=== PATIENT | female | born 1955 | race Caucasian/White ===

== ENCOUNTER → 2016-11-03 | Outpatient (CLI) | payer OTHER | END | disposition home or self-care (01) | LOC: LABWHC1 10:56 | PROVIDERS: ATTEND Internal Medicine Endocrinology, Diabetes & Metabolism | DX: E03.8 Other specified hypothyroidism (principal) | CPT/HCPCS: 36415; 84439; 84443 ==

== ENCOUNTER → 2016-12-03 | Outpatient (CLI) | payer OTHER ==
[2016-12-04 15:26] LABS: Lyme IgG/IgM 0.4 Index; Lyme IgG/IgM Interp NEGATIVE (NEGATIVE)
== END | disposition home or self-care (01) ==
LOC: LABWHC1 08:51
PROVIDERS: ATTEND Psychiatry & Neurology Neurology
DX: A69.20 Lyme disease, unspecified (principal)
CPT/HCPCS: 36415; 86618

== ENCOUNTER → 2016-12-28 | Outpatient (CLI) | payer OTHER | END | disposition home or self-care (01) | LOC: LABWHC1 15:02 | PROVIDERS: ATTEND Internal Medicine Endocrinology, Diabetes & Metabolism | DX: E03.8 Other specified hypothyroidism (principal) | CPT/HCPCS: 36415; 84439; 84443 ==

== ENCOUNTER → 2016-12-29 | Outpatient (CLI) | payer OTHER ==
--- NOTE | 2016-12-29 11:54 | BD ---
EXAMINATION TYPE: MG DEXA axial skeleton. DATE OF EXAM: 12/29/2016 COMPARISON: NONE CLINICAL HISTORY: Z78.0 Osteoporosis Screening Height: 60.5 IN Weight: 156 LBS FRAX RISK QUESTIONS: Alcohol (3 or more units per day): NO Family History (Parent hip fracture): NO Glucocorticoids (More than 3mos): NO (Ex: prednisone, prednisolone, methylprednisolone, dexamethasone, and hydrocortisone). History of Fracture in Adulthood: NO Secondary Osteoporosis: 1. Type 1 Diabetes: NO 2. Hyperthyroidism: NO 3. Menopause before 45: NO AGE 50 4. Malnutrition: NO 5. Chronic liver disease: NO Rheumatoid Arthritis: NO Current Tobacco Use: NO RISK FACTORS HISTORY OF: History of Wrist Fracture: YES JUDI When: RT WRIST AGE 44 LT WRIST AGE 45 Family History of Osteoporosis: YES FATHER, GRANDMOTHER(P) Active: YES Diet low in dairy products/other sources of calcium: YES Postmenopausal woman: AGE 50 MEDICATIONS: Thyroid Medications: DOES NOT TAKE NOW Which medication: SYNTHROID How Long: TOOK SYNTHROID FOR 25 YEARS. DOES NOT TAKE THYROID MEDICATION NOW Osteoporosis Medications: NOT NOW Which medication: Fosamax How Long: TOOK FOSAMAX FOR 15 YEARS. STOPPED TAKING 8 YEARS AGO Additional Medications: CALCIUM, VIT D, SINUS MEDS, ANXIETY MEDS, SLEEP MEDS, BIPOLAR MEDS, AMBIEN, N AUSEA MEDS, TRAMADOL, MIGRAINE MEDS EXAM MEASUREMENTS: Bone mineral densitometry was performed using the [employer] System. Bone mineral density as measured about the Lumbar spine is: ----- L1-L4(G/cm2): 0.984 T Score Values are as follows: ----- L2: -2.1 ----- L3: -1.8 ----- L4: -1.2 ----- L1-L4: -1.6 Bone mineral density BASELINE Bone mineral density about the R hip (g/cm2): 0.784 Bone mineral density about the L hip (g/cm2): 0.779 T Score values are as follows: -----R Neck: -1.8 -----L Neck: -1.9 -----R Total: -1.7 -----L Total: -1.2 Bone mineral density BASELINE IMPRESSION: Osteopenia about the lumbar spine and bilateral femora. NOTE: T-SCORE=SD OF THE YOUNG ADULT MEAN.
== END | disposition home or self-care (01) ==
LOC: RADBDWWP 09:15
PROVIDERS: ATTEND Internal Medicine
DX: M85.88 Other specified disorders of bone density and structure, other site (principal); Z78.0 Asymptomatic menopausal state
CPT/HCPCS: 77080

== ENCOUNTER → 2017-06-23 | Outpatient (CLI) | payer OTHER | END | disposition home or self-care (01) | LOC: LABWHC1 10:19 | PROVIDERS: ATTEND Internal Medicine Endocrinology, Diabetes & Metabolism | DX: E03.8 Other specified hypothyroidism (principal) | CPT/HCPCS: 36415; 84443 ==

== ENCOUNTER → 2017-11-09 | Outpatient (CLI) | payer OTHER ==
--- NOTE | 2017-11-09 15:41 | CONS ---
CONSULTATION REASON FOR EVALUATION: Sleep apnea. 62-year-old female patient diagnosed having obstructive sleep apnea back in 2007. At that time, the patient underwent a polysomnogram and she was found to have an AHI of 44 consistent with severe disease. She also has history of chronic insomnia essentially related to her chronic psychotic disorder, which includes chronic anxiety and bipolar. The patient is maintained currently on a combination of Ativan 10 mg 3 times a day and Seroquel 100 mg at bedtime. Apparently her CPAP machine that was set at a pressure of 8 broke approximately a year ago and apparently the patient's symptoms of sleep apnea got worse and the patient is quite symptomatic at this point, where she is waking up multiple times in the middle of the night choking and gasping for air. She continues to have nocturia and she has loud snoring. She is able to fall asleep with help of her medication which includes Ativan and Seroquel. She has excessively fatigue and sleepy during the day and she wants her CPAP machine back. She is going to bed around 10:00 p.m., wakes up at 3, 4, 5 and 6:00 a.m. and ultimately she gets out of bed around 7:00 am. Over the past 10 years, she has lost approximately 9 pounds. She is currently down to 164. No hallucinations. No dreaming. No sleep paralysis. No cataplexy. PAST MEDICAL HISTORY: 1. Obstructive sleep apnea. Details discussed above. The patient was using a CPAP at a pressure of 8 cm of water through a nose pillow. AHI is 44 at baseline. 2. Hypothyroidism. 3. Chronic anxiety. 4. Bipolar disorder. 5. Migraines. 6. Insomnia. PAST SURGICAL HISTORY: Includes carpal tunnel release bilaterally, left knee tendon surgery, bilateral bunion surgery in the feet, cholecystectomy and breast surgery bilaterally. DRUG ALLERGIES: Not known. OUTPATIENT MEDICATION: Includes Seroquel 100 mg at bedtime. Ativan 10 mg 3 times a day. Ambien 10 mg at bedtime. Trileptal 100 mg twice a day. Synthroid 75 mg p.o. daily and Xyzal for allergies. SOCIAL HISTORY: The patient is a nonsmoker. No history of alcohol. No history of IV drugs. FAMILY HISTORY: Negative for sleep apnea. Positive for bipolar disorder. Also cardiovascular disease also runs in the family including hypertension, coronary artery disease and family history of CVA. REVIEW OF SYSTEMS: 12-point review of system was done. Of significance is the increased fatigue and sleepiness the patient experiencing, she has chronic insomnia, details discussed above. She has also chronic anxiety and bipolar disorder. She has nocturia and she has followed up with Urology, tried on various treatments. No palpitation. No heartburn. No grinding of the teeth. No claustrophobia and she was able to manage well with her CPAP machine in the past. 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 She is always tuned into noise for him. No history of any motor vehicle accident because of feeling drowsy or sleepy. PHYSICAL EXAMINATION: BP is 149/84, pulse 78, respirations 16, temperature 16, temperature 97.9 saturation 98% on room air. [place] score is at 0. BMI 30.9. Neck size 15 and quarter of an inch. Weight is 164. Height is 5 feet 1 inch. General appearance: Calm and comfortable. Head is atraumatic, normocephalic. No JVD. No goiter. Neck is negative for JVD. No goiter or neck masses. There is an overbite. LUNGS: Clear to auscultation. HEART: Sounds regular rate and rhythm. Normal S1, S2. No S3, S4. No murmurs. ABDOMEN: Soft, nontender. No organomegaly. EXTREMITIES: No edema. No cyanosis or clubbing. NEUROLOGIC: The patient is alert and oriented x3. There is no focal neurological deficits. Psychiatrically the patient has history of chronic anxiety and bipolar disorder. IMPRESSION: 1. Symptomatic obstructive sleep apnea. Based on the sleep study that was done in 2007. The patient has an AHI of 44 and she was being treated with a CPAP pressure of 8 cm of water. She is currently undergoing no treatment as her previous machine broke. 2. Chronic insomnia, secondary insomnia related to chronic anxiety maintained on a combination of Ativan and Seroquel and Ambien at bedtime. 3. Hypothyroidism. 4. Bipolar disorder. 5. Chronic anxiety. 6. Migraines. PLAN: The patient has established diagnosis and she is currently asymptomatic from obstructive sleep apnea. We will offer CPAP therapy during which the CPAP pressure will be updated and the patient will be given the appropriate mask interface and she will see me back in follow up to discuss the results of the titration and assess her clinical response and compliance to CPAP treatment. Continue to check her Ativan and Ambien as prescribed earlier to this patient for sleep induction and maintenance regarding her chronic anxiety and secondary insomnia. We will continue to follow. MMVINNYL / ROLANDN: [id number] /
== END | disposition home or self-care (01) ==
LOC: SLEEP 13:04
PROVIDERS: ATTEND Internal Medicine Critical Care Medicine
DX: G47.33 Obstructive sleep apnea (adult) (pediatric) (principal); F51.04 Psychophysiologic insomnia; R35.1 Nocturia; F41.9 Anxiety disorder, unspecified; F31.9 Bipolar disorder, unspecified; F29 Unspecified psychosis not due to a substance or known physiological condition; E03.9 Hypothyroidism, unspecified; G43.909 Migraine, unspecified, not intractable, without status migrainosus; Z90.49 Acquired absence of other specified parts of digestive tract; Z99.89 Dependence on other enabling machines and devices; Z79.899 Other long term (current) drug therapy; Z98.890 Other specified postprocedural states
CPT/HCPCS: 99211

== ENCOUNTER → 2017-12-14 | Outpatient (CLI) | payer OTHER ==
[2017-12-14 08:56] LABS: Basophils % (A) 1 %; Eosinophils # (A) 0.2 k/uL (0-0.7); Eosinophils % (A) 3 %; HCT 43.6 % (34.0-46.0); HGB 13.7 gm/dL (11.4-16.0); Lymphocytes # (A) 1.7 k/uL (1.0-4.8); Lymphocytes % (A) 38 %; MCH 29.3 pg (25.0-35.0); MCHC 31.4 g/dL (31.0-37.0); MCV 93.3 fL (80.0-100.0); Mean Platelet Volume 6.9; Monocytes # (A) 0.3 k/uL (0-1.0); Monocytes % (A) 7 %; Neutrophils # (A) 2.3 k/uL (1.3-7.7); Neutrophils % (A) 50 %; Platelet Count 366 k/uL (150-450); RBC 4.67 m/uL (3.80-5.40); RDW 14.6 % (11.5-15.5); WBC 4.6 k/uL (3.8-10.6)
[2017-12-14 08:59] LABS: ALT 36 U/L (9-52); AST 24 U/L (14-36); Albumin 3.6 g/dL (3.5-5.0); Alkaline Phosphatase 57 U/L (38-126); Anion Gap 5 mmol/L; Blood Urea Nitrogen 25 mg/dL (7-17); Calcium 9.3 mg/dL (8.4-10.2); Carbon Dioxide 27 mmol/L (22-30); Chloride 107 mmol/L (98-107); Cholesterol 246 mg/dL (<200); Glucose 93 mg/dL (74-99); HDL Cholesterol 78 mg/dL (40-60); LDL Cholesterol,Calculated 154 mg/dL (0-99); Potassium 4.6 mmol/L (3.5-5.1); Sodium 139 mmol/L (137-145); Total Bilirubin 0.4 mg/dL (0.2-1.3); Total Protein 6.2 g/dL (6.3-8.2); Triglycerides 72 mg/dL (<150)
== END | disposition home or self-care (01) ==
LOC: LABWHC1 07:51
PROVIDERS: ATTEND Nurse Practitioner Women's Health
DX: Z00.00 Encounter for general adult medical examination without abnormal findings (principal); E78.00 Pure hypercholesterolemia, unspecified; Z79.899 Other long term (current) drug therapy
CPT/HCPCS: 36415; 80053; 80061; 85025

== ENCOUNTER → 2017-12-24 | Outpatient (CLI) | payer OTHER | END | disposition home or self-care (01) | LOC: LABWHC1 14:24 | PROVIDERS: ATTEND Internal Medicine Endocrinology, Diabetes & Metabolism | DX: E03.8 Other specified hypothyroidism (principal) | CPT/HCPCS: 36415; 84443 ==

== ENCOUNTER 2018-01-15 11:07 | Observation (INO) | payer OTHER ==
[2018-01-15] MEDS ORDERED: SODIUM CHLORIDE 0.9% 1,000 ML IV ONE (11:20)
--- NOTE | 2018-01-15 11:20 | ED ---
General Adult HPI - General Stated complaint: Chest Pain Time Seen by Provider: 01/15/18 11:07 Source: RN notes reviewed - History of Present Illness Initial comments: This is a 62-year-old female has a past medical history significant for hypertension. Patient states she was donating plasma today and she felt lightheaded and then passed out for about 30 seconds. Patient states she was incontinent of stool and urine. Patient states when she woke up she was having chest pain which was radiating into her neck. Patient states that lasted until the ambulance arrived. Patient was placed on oxygen and aspirin and her pain subsided. Patient states currently she is asymptomatic. Patient denies any palpitations. Patient denies shortness of breath or difficulty breathing. Patient denies any headache patient denies numbness weakness. Patient denies any current chest pain. Patient denies any current lightheadedness. Patient denies abdominal pain. Patient states she did have 3 episodes of diarrhea last night but none so far today. Patient denies any recent fever chills or cough. Patient denies any leg swelling or calf tenderness. - Related Data Home Medications Medication Instructions Recorded Confirmed LORazepam [Lorazepam] 1 mg PO TID 05/04/14 02/10/17 Promethazine [Phenergan] 25 mg PO Q6H PRN 05/04/14 02/10/17 traMADol HCL [Ultram ER] 100 mg PO BID PRN 11/27/14 02/10/17 Levocetirizine Dihydrochloride 5 mg PO QAM 02/07/15 02/10/17 [Xyzal] Multivitamins, Thera [Multivitamin 1 tab PO DAILY 02/15/15 02/10/17 (formulary)] Clindamycin Phos/Benzoyl Perox 1 applic TOPICAL BID 10/25/15 02/10/17 [Benzaclin Gel] Erythromycin Topical [Erythromycin 1 applic TOPICAL TID 10/25/15 02/10/17 2% Topical Soln] Hydrocortisone Cream 1 applic TOPICAL DAILY 10/25/15 02/10/17 [Hydrocortisone 2.5% Cream] Levothyroxine Sodium [Synthroid] 50 mcg PO DAILY 02/05/17 02/10/17 Zolpidem [Ambien] 10 mg PO HS 02/05/17 02/10/17 carBAMazepine [TEGretol XR] 100 mg PO Q12H 02/05/17 02/10/17 Allergies Allergy/AdvReac Type Severity Reaction Status Date / Time codeine AdvReac Nausea Verified 02/10/17 08:46 Review of Systems ROS Statement: Those systems with pertinent positive or pertinent negative responses have been documented in the HPI. ROS Other: All systems not noted in ROS Statement are negative. Past Medical History Past Medical History: Neurologic Disorder Additional Past Medical History / Comment(s): hx. migraines, arrythmia, History of Any Multi-Drug Resistant Organisms: None Reported Past Surgical History: Bladder Surgery, Cholecystectomy, Orthopedic Surgery, Tubal Ligation Additional Past Surgical History / Comment(s): carpal tunnel/ several trigger fingers and toe, foot surg. RON FUNDOPLASTY, EGD last 02/18/15 WITH DILATION , spleen removal, COLONOSCOPY, BILAT WRIST SX Past Anesthesia/Blood Transfusion Reactions: No Reported Reaction Smoking Status: Never smoker - Past Family History Brother(s) Family Medical History: Diabetes Mellitus Sister(s) Family Medical History: AICD/Pacemaker, Diabetes Mellitus Father Family Medical History: CVA/TIA, Myocardial Infarction (ND) Mother Family Medical History: Cancer Additional Family Medical History / Comment(s): pulmonary edema General Exam - General Exam Comments Initial Comments: GENERAL: Patient is well-developed and well-nourished. Patient is nontoxic and well- hydrated and is in mild distress. ENT: Neck is soft and supple. No significant lymphadenopathy is noted. Oropharynx is clear. Moist mucous membranes. Neck has full range of motion without eliciting any pain. EYES: The sclera were anicteric and conjunctiva were pink and moist. Extraocular movements were intact and pupils were equal round and reactive to light. Eyelids were unremarkable. PULMONARY: Unlabored respirations. Good breath sounds bilaterally. No audible rales rhonchi or wheezing was noted. CARDIOVASCULAR: There is a regular rate and rhythm without any murmurs gallops or rubs. ABDOMEN: Soft and nontender with normal bowel sounds. No palpable organomegaly was noted. There is no palpable pulsatile mass. SKIN: Skin is clear with no lesions or rashes and otherwise unremarkable. NEUROLOGIC: Patient is alert and oriented x3. Cranial nerves II through XII are grossly intact. Motor and sensory are also intact. Normal speech, volume and content. Symmetrical smile. MUSCULOSKELETAL: Normal extremities with adequate strength and full range of motion. No lower extremity swelling or edema. No calf tenderness. LYMPHATICS: No significant lymphadenopathy is noted PSYCHIATRIC: Normal psychiatric evaluation. Course Vital Signs 01/15/18 11:18 Temperature 97.0 F L Pulse Rate 74 Respiratory 18 Rate Blood Pressure 158/80 O2 Sat by Pulse 97 Oximetry Medical Decision Making - Medical Decision Making EKG shows a normal sinus rhythm at 67 bpm MO interval 192 QRS is 84 QT interval 390 QTC is 412. Patient's EKG shows no ST segment elevation or depression or T wave abnormalities are noted Chest x-ray shows no acute abnormality. - Lab Data Result diagrams: 01/15/18 11:55 01/15/18 11:55 Lab Results 01/15/18 01/15/18 01/15/18 Range/Units 11:55 11:55 11:55 WBC 15.3 H (3.8-10.6) k/uL RBC 5.53 H (3.80-5.40) m/uL Hgb 16.3 H (11.4-16.0) gm/dL Hct 51.2 H (34.0-46.0) % MCV 92.6 (80.0-100.0) fL MCH 29.4 (25.0-35.0) pg MCHC 31.8 (31.0-37.0) g/dL RDW 14.4 (11.5-15.5) % Plt Count 238 (150-450) k/uL Neutrophils % 81 % Lymphocytes % 13 % Monocytes % 4 % Eosinophils % 1 % Basophils % 1 % Neutrophils # 12.4 H (1.3-7.7) k/uL Lymphocytes # 2.0 (1.0-4.8) k/uL Monocytes # 0.6 (0-1.0) k/uL Eosinophils # 0.1 (0-0.7) k/uL Basophils # 0.1 (0-0.2) k/uL PT (9.0-12.0) sec INR (<1.2) APTT (22.0-30.0) sec Sodium 140 (137-145) mmol/L Potassium 4.1 (3.5-5.1) mmol/L Chloride 107 (98-107) mmol/L Carbon Dioxide 25 (22-30) mmol/L Anion Gap 8 mmol/L BUN 17 (7-17) mg/dL Creatinine 0.72 (0.52-1.04) mg/dL Est GFR (CKD-EPI)AfAm >90 (>60 ml/min/1.73 sqM) Est GFR (CKD-EPI)NonAf 90 (>60 ml/min/1.73 sqM) Glucose 96 (74-99) mg/dL Calcium 8.7 (8.4-10.2) mg/dL Magnesium 1.8 (1.6-2.3) mg/dL Total Bilirubin 0.2 (0.2-1.3) mg/dL AST 23 (14-36) U/L ALT 25 (9-52) U/L Alkaline Phosphatase 56 (38-126) U/L Total Creatine Kinase 69 (30-135) U/L CK-MB (CK-2) 1.1 (0.0-2.4) ng/mL CK-MB (CK-2) Rel Index 1.6 Troponin I <0.012 (0.000-0.034) ng/mL Total Protein 5.6 L (6.3-8.2) g/dL Albumin 3.2 L (3.5-5.0) g/dL 01/15/18 Range/Units 11:55 WBC (3.8-10.6) k/uL RBC (3.80-5.40) m/uL Hgb (11.4-16.0) gm/dL Hct (34.0-46.0) % MCV (80.0-100.0) fL MCH (25.0-35.0) pg MCHC (31.0-37.0) g/dL RDW (11.5-15.5) % Plt Count (150-450) k/uL Neutrophils % % Lymphocytes % % Monocytes % % Eosinophils % % Basophils % % Neutrophils # (1.3-7.7) k/uL Lymphocytes # (1.0-4.8) k/uL Monocytes # (0-1.0) k/uL Eosinophils # (0-0.7) k/uL Basophils # (0-0.2) k/uL PT 9.4 (9.0-12.0) sec INR 0.9 (<1.2) APTT 17.6 L (22.0-30.0) sec Sodium (137-145) mmol/L Potassium (3.5-5.1) mmol/L Chloride (98-107) mmol/L Carbon Dioxide (22-30) mmol/L Anion Gap mmol/L BUN (7-17) mg/dL Creatinine (0.52-1.04) mg/dL Est GFR (CKD-EPI)AfAm (>60 ml/min/1.73 sqM) Est GFR (CKD-EPI)NonAf (>60 ml/min/1.73 sqM) Glucose (74-99) mg/dL Calcium (8.4-10.2) mg/dL Magnesium (1.6-2.3) mg/dL Total Bilirubin (0.2-1.3) mg/dL AST (14-36) U/L ALT (9-52) U/L Alkaline Phosphatase (38-126) U/L Total Creatine Kinase (30-135) U/L CK-MB (CK-2) (0.0-2.4) ng/mL CK-MB (CK-2) Rel Index Troponin I (0.000-0.034) ng/mL Total Protein (6.3-8.2) g/dL Albumin (3.5-5.0) g/dL Disposition Clinical Impression: Syncope, Chest pain, Diarrhea Disposition: ADMITTED IP TO THIS [facility] Referrals: Jayden Hall Jr, [Primary Care Provider] - 1-2 days Time of Disposition: 13:17
[2018-01-15 12:09] LABS: Basophils # (A) 0.1 k/uL (0-0.2); Basophils % (A) 1 %; Eosinophils # (A) 0.1 k/uL (0-0.7); Eosinophils % (A) 1 %; HCT 51.2 % (34.0-46.0); HGB 16.3 gm/dL (11.4-16.0); Lymphocytes % (A) 13 %; MCH 29.4 pg (25.0-35.0); MCHC 31.8 g/dL (31.0-37.0); MCV 92.6 fL (80.0-100.0); Mean Platelet Volume 7.6; Monocytes # (A) 0.6 k/uL (0-1.0); Monocytes % (A) 4 %; Neutrophils # (A) 12.4 k/uL (1.3-7.7); Neutrophils % (A) 81 %; Platelet Count 238 k/uL (150-450); RBC 5.53 m/uL (3.80-5.40); RDW 14.4 % (11.5-15.5); WBC 15.3 k/uL (3.8-10.6)
[2018-01-15 12:24] LABS: INR 0.9 (<1.2); Prothrombin Time 9.4 sec (9.0-12.0)
[2018-01-15 12:29] LABS: ALT 25 U/L (9-52); AST 23 U/L (14-36); Albumin 3.2 g/dL (3.5-5.0); Alkaline Phosphatase 56 U/L (38-126); Anion Gap 8 mmol/L; Blood Urea Nitrogen 17 mg/dL (7-17); Calcium 8.7 mg/dL (8.4-10.2); Carbon Dioxide 25 mmol/L (22-30); Chloride 107 mmol/L (98-107); Glucose 96 mg/dL (74-99); Magnesium 1.8 mg/dL (1.6-2.3); Potassium 4.1 mmol/L (3.5-5.1); Sodium 140 mmol/L (137-145); Total Bilirubin 0.2 mg/dL (0.2-1.3); Total Protein 5.6 g/dL (6.3-8.2)
[2018-01-15 12:39] LABS: Creatine Kinase 69 U/L (30-135); Partial Thromboplastin Time 17.6 sec (22.0-30.0)
--- NOTE | 2018-01-15 12:41 | XR ---
EXAMINATION TYPE: XR chest 2V DATE OF EXAM: 01/15/2018 HISTORY: Chest Pain. REFERENCE: Previous study dated 10/25/1959. FINDINGS: The lungs are clear. Pleural spaces are clear. Heart size upper limits of normal. IMPRESSION: BORDERLINE CARDIOMEGALY.
[2018-01-15 12:53] LABS: Creatine Kinase MB 1.1 ng/mL (0.0-2.4); Troponin I <0.012 ng/mL (0.000-0.034)
[2018-01-15] MEDS ORDERED: NITROGLYCERIN SL TABS 0.4 MG TAB SUBLINGUAL PRN (13:18)
[2018-01-15] MEDS ORDERED: NITROGLYCERIN OINT 1 INCH/GM PACKET TOPICAL STA (13:20)
[2018-01-15] MEDS ORDERED: ONDANSETRON 4 MG/2 ML VIAL ONE (14:55)
[2018-01-15] MEDS ORDERED: SUMAtriptan SUCCINATE 50 MG TAB PO PRN (18:15)
[2018-01-15] MEDS: NITROGLYCERIN OINT 1 INCH/GM PACKET TOPICAL SCH (18:26)
[2018-01-15 18:34] LABS: Creatine Kinase 36 U/L (30-135)
[2018-01-15 18:45] LABS: Creatine Kinase MB 0.7 ng/mL (0.0-2.4); Troponin I <0.012 ng/mL (0.000-0.034)
[2018-01-15] MEDS: QUEtiapine 100 MG TAB PO SCH (20:53)
[2018-01-15] MEDS: LORazepam 1 MG TAB PO SCH (20:54)
--- NOTE | 2018-01-15 22:50 | CONS ---
CONSULTATION CHIEF COMPLAINT: Chest pain. Pebbles is a 62-year-old lady with history of prior cardiac catheterization prior cardiac workup in the form of a stress test and echocardiogram, who presented to hospital complaining of chest discomfort. She describes it as a sharp pericardial pain lasting for about 30 seconds. It all started after she donated plasma today and then she had a brief syncopal event. She states that she was incontinent, woke up and subsequently had chest discomfort that radiated to her neck. At the time of my evaluation, she appears comfortable at rest and is free of symptoms. EKG does not reveal ischemic changes. First set of troponin is negative. PAST MEDICAL HISTORY: Negative for hypertension, diabetes, dyslipidemia. Significant for hypothyroidism. CURRENT MEDICATIONS: Include Seroquel, Imitrex, Trileptal, Vitamin D, Ambien, Multivitamin, Synthroid, Lorazepam, And Hydrocortisone. ALLERGIES: The patient is ALLERGIC TO CODEINE AND TRAZODONE. FAMILY HISTORY: Negative for premature coronary artery disease. SOCIAL HISTORY: Negative for smoking, EtOH abuse, or drug abuse. REVIEW OF SYSTEMS: HEENT is unremarkable. CARDIAC: As described above. RESPIRATORY: Negative. GI: Negative. : Negative. ALLERGY: Negative. MUSCULOSKELETAL: significant for arthritis. PSYCHOSOCIAL: Negative. ENDOCRINE: Negative. HEMATOLOGIC: Negative. CONSTITUTIONAL: Negative. ONCOLOGICAL: Negative. The rest of the system review is not relevant. EXAM: Comfortable at rest. Vital signs are stable. There is no jugular venous distention. Carotid upstroke is normal. There is no bruit. Chest exam reveals good air entry bilaterally. Heart exam reveals first and second heart sounds. No gallop. No murmur. No rub. Abdomen is soft, nontender. Exam of extremities did not reveal any edema. Peripheral pulses are felt. EKG does not reveal ischemic changes. First set of troponin is negative. ASSESSMENT: Chest pain, rule out myocardial infarction. PLAN: Will obtain serial CPKs and EKGs. Obtain an echocardiogram and decide on further course of action. MMODL / IJN: [id number] /
[2018-01-15] MEDS: ZOLPIDEM 10 MG TAB PO SCH (23:14)
[2018-01-16 00:48] LABS: Creatine Kinase 28 U/L (30-135)
[2018-01-16 01:02] LABS: Creatine Kinase MB 0.6 ng/mL (0.0-2.4); Troponin I <0.012 ng/mL (0.000-0.034)
[2018-01-16] MEDS: NITROGLYCERIN OINT 1 INCH/GM PACKET TOPICAL SCH ×4 (04:10→17:44)
[2018-01-16 05:47] LABS: Cholesterol 221 mg/dL (<200); HDL Cholesterol 61 mg/dL (40-60); LDL Cholesterol,Calculated 146 mg/dL (0-99); Triglycerides 69 mg/dL (<150)
[2018-01-16] MEDS: LEVOTHYROXINE 50 MCG TAB PO SCH ×2 (06:39→09:33)
[2018-01-16] MEDS ORDERED: NON-FORMULARY DRUG (Biotin [Biotin] 5 MG) PO SCH (09:00)
[2018-01-16] MEDS ORDERED: NON-FORMULARY DRUG (Omega-3 Fatty Acids/Fish Oil [Fish Oil 1,000 Mg Softgel] 1 CAP) PO SCH (09:00)
--- NOTE | 2018-01-16 09:16 | PN ---
PROGRESS NOTE Pebbles is a 62-year-old lady who is admitted to hospital with chest pain and syncope. This morning she is doing well and is free of symptoms. EKG does not reveal ischemic changes. Cardiac enzymes have been negative and her white cell count is elevated. On exam she is comfortable at rest. Vital signs are stable. There is no jugular venous distention. Chest exam reveals good air entry bilaterally. Heart exam reveals first and second heart sounds. No gallop. Abdomen is soft. Exam of extremities did not reveal any edema. Peripheral pulses are felt. ASSESSMENT: Chest pain, rule out coronary artery disease. PLAN: The patient will have an echo and stress test tomorrow and if this is normal, she will be discharged home. If not, she will undergo further workup. MMODL / IJN: [id number] /
[2018-01-16] MEDS: LORazepam 1 MG TAB PO SCH ×3 (09:34→20:31)
[2018-01-16] MEDS: FERROUS SULFATE 325 MG TAB PO SCH (09:34)
[2018-01-16] MEDS: LORATADINE 10 MG TAB PO SCH (09:34)
[2018-01-16] MEDS: CHOLECALCIFEROL 1,000 UNIT TAB PO SCH (09:35)
[2018-01-16] MEDS: ASPIRIN 325 MG TAB PO SCH (09:35)
[2018-01-16] MEDS: OXcarbazepine 300 MG TAB PO SCH (09:35)
--- NOTE | 2018-01-16 11:34 | P.HPIM ---
History of Present Illness Chief Complaint: Chest pain Pebbles is a 62-year-old white female patient well known to the practice. She has a history of hypertension. She reports she has been donating plasma approximately twice per week. She also indicates for the past several months she's had explosive watery diarrhea several times a day intermittently. While at dialysis yesterday, she became dizzy and faint and actually lost consciousness. She was incontinent of stool and an urine. She was placed on oxygen given aspirin and EMS was called. At that time she had chest pain. She denied any shortness of breath palpitations or other issues.Patient denies any current chest pain. Patient denies any current lightheadedness. Patient denies abdominal pain. Patient states she did have 3 episodes of diarrhea last night but none so far today. Patient denies any recent fever chills or cough. Patient denies any leg swelling or calf tenderness. Review of Systems All systems: negative Past Medical History Past Medical History: Neurologic Disorder Additional Past Medical History / Comment(s): hx. migraines, arrythmia, History of Any Multi-Drug Resistant Organisms: None Reported Past Surgical History: Bladder Surgery, Cholecystectomy, Orthopedic Surgery, Tubal Ligation Additional Past Surgical History / Comment(s): carpal tunnel/ several trigger fingers and toe, foot surg. RON FUNDOPLASTY, EGD last 02/18/15 WITH DILATION , spleen removal, COLONOSCOPY, BILAT WRIST SX Past Anesthesia/Blood Transfusion Reactions: No Reported Reaction Past Psychological History: Anxiety, Bipolar, Depression Additional Psychological History / Comment(s): SEES DR. 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 Past Drug Use History: None Reported - Past Family History Brother(s) Family Medical History: Diabetes Mellitus Sister(s) Family Medical History: AICD/Pacemaker, Diabetes Mellitus Father Family Medical History: CVA/TIA, Myocardial Infarction ([place]) Mother Family Medical History: Cancer Additional Family Medical History / Comment(s): pulmonary edema Medications and Allergies Home Medications Medication Instructions Recorded Confirmed Type LORazepam [Lorazepam] 1 mg PO TID 05/04/14 01/15/18 History Levocetirizine Dihydrochloride 5 mg PO QAM 02/07/15 01/15/18 History [Xyzal] Multivitamins, Thera [Multivitamin 1 tab PO DAILY 02/15/15 01/15/18 History (formulary)] Hydrocortisone Cream 1 applic TOPICAL DAILY 10/25/15 01/15/18 History [Hydrocortisone 2.5% Cream] Levothyroxine Sodium [Synthroid] 50 mcg PO DAILY 02/05/17 01/15/18 History Zolpidem [Ambien] 10 mg PO HS 02/05/17 01/15/18 History Biotin 5 mg PO DAILY 01/15/18 01/15/18 History Cholecalciferol [Vitamin D3] 1,000 unit PO DAILY 01/15/18 01/15/18 History Ferrous Sulfate [Iron] 325 mg PO DAILY 01/15/18 01/15/18 History OXcarbazepine [Trileptal] 300 mg PO DAILY 01/15/18 01/15/18 History [place]-3 Fatty Acids/Fish Oil [Fish 1 cap PO DAILY 01/15/18 01/15/18 History Oil 1,000 mg Softgel] QUEtiapine [SEROquel] 300 mg PO HS 01/15/18 01/15/18 History SUMAtriptan SUCCINATE [Imitrex] 50 mg PO ONCE PRN 01/15/18 01/15/18 History Allergies Allergy/AdvReac Type Severity Reaction Status Date / Time codeine AdvReac Nausea Verified 01/15/18 13:29 trazodone AdvReac Unknown Verified 01/15/18 13:29 Physical Exam Vitals: Vital Signs Temp Pulse Pulse Resp BP BP Pulse Ox 01/16/18 08:00 99.2 F 78 18 117/63 94 L 01/16/18 04:00 98.1 F 81 16 92/50 92 L 01/15/18 23:58 16 01/15/18 23:23 98.1 F 82 16 106/59 91 L 01/15/18 20:00 16 01/15/18 19:44 98.2 F 81 16 124/66 93 L 01/15/18 16:07 97 01/15/18 14:36 97.6 F 71 16 134/81 95 01/15/18 14:11 64 16 143/73 100 01/15/18 13:45 62 16 126/75 99 01/15/18 13:15 68 16 134/74 99 Intake and Output 01/15/18 01/16/18 01/16/18 22:59 06:59 14:59 Other: Voiding Method Toilet Toilet Toilet # Voids 2 2 # Bowel Movements 1 GENERAL: Well-appearing, well-nourished and in no acute distress. HEAD: Atraumatic, normocephalic. EYES: Pupils equal round and reactive to light, extraocular movements intact, sclera anicteric, conjunctiva are normal. ENT:nares patent, oropharynx clear without exudates. Moist mucous membranes. NECK: Normal range of motion, supple without lymphadenopathy or JVD, no thyromegaly LUNGS: Breath sounds clear to auscultation bilaterally and equal. No wheezes rales or rhonchi. HEART: Regular rate and rhythm without murmurs, rubs or gallops.S1S2 Normal ABDOMEN: Soft, nontender, normoactive bowel sounds. No guarding, no rebound. No masses appreciated. EXTREMITIES: Normal range of motion, no pitting or edema. No clubbing or cyanosis. NEUROLOGICAL: Cranial nerves II through XII grossly intact. Normal speech, normal gait. PSYCH: Normal mood, normal affect. SKIN: Warm, Dry, normal turgor, no rashes or lesions noted. Results CBC & Chem 7: 01/15/18 11:55 01/15/18 11:55 Labs: Abnormal Lab Results - Last 24 Hours (Table) 01/15/18 01/15/18 01/15/18 Range/Units 11:55 11:55 11:55 WBC 15.3 H (3.8-10.6) k/uL RBC 5.53 H (3.80-5.40) m/uL Hgb 16.3 H (11.4-16.0) gm/dL Hct 51.2 H (34.0-46.0) % Neutrophils # 12.4 H (1.3-7.7) k/uL APTT 17.6 L (22.0-30.0) sec Total Creatine Kinase (30-135) U/L Total Protein 5.6 L (6.3-8.2) g/dL Albumin 3.2 L (3.5-5.0) g/dL Cholesterol (<200) mg/dL LDL Cholesterol, Calc (0-99) mg/dL HDL Cholesterol (40-60) mg/dL 01/15/18 01/16/18 Range/Units 11:55 00:01 WBC (3.8-10.6) k/uL RBC (3.80-5.40) m/uL Hgb (11.4-16.0) gm/dL Hct (34.0-46.0) % Neutrophils # (1.3-7.7) k/uL APTT (22.0-30.0) sec Total Creatine Kinase 28 L (30-135) U/L Total Protein (6.3-8.2) g/dL Albumin (3.5-5.0) g/dL Cholesterol 221 H (<200) mg/dL LDL Cholesterol, Calc 146 H (0-99) mg/dL HDL Cholesterol 61 H (40-60) mg/dL Chest x-ray: report reviewed Thrombosis Risk Factor Assmnt - DVT/VTE Prophylaxis DVT/VTE Prophylaxis: Low risk, early ambulation encouraged - Choose All That Apply Each Risk Factor Represents 2 Points: Age 61-74 years Thrombosis Risk Factor Assessment Total Risk Factor Score: 2 Thrombosis Risk Factor Assessment Level: Low Risk Assessment and Plan (1) Incontinence of feces Current Visit: Yes Status: Acute Code(s): R15.9 - FULL INCONTINENCE OF FECES SNOMED Code(s): 57998752 (2) Incontinence of urine Current Visit: Yes Status: Acute Code(s): R32 - UNSPECIFIED URINARY INCONTINENCE SNOMED Code(s): 451812801 (3) Chest pain Current Visit: Yes Status: Acute Code(s): R07.9 - CHEST PAIN, UNSPECIFIED SNOMED Code(s): 26491768 (4) Diarrhea Current Visit: Yes Status: Acute Code(s): R19.7 - DIARRHEA, UNSPECIFIED SNOMED Code(s): 96658881 (5) Syncope Current Visit: Yes Status: Acute Code(s): R55 - SYNCOPE AND COLLAPSE SNOMED Code(s): 172609570 (6) Leukocytosis Current Visit: Yes Status: Acute Code(s): D72.829 - ELEVATED WHITE BLOOD CELL COUNT, UNSPECIFIED SNOMED Code(s): 056362984 Plan: Cardiology regarding seen the patient. A stress test and 2-D echo as planned. We will recheck her thyroid labs not done. Recheck other labs in a.m. She'll be reevaluated in the next 24 hours. She will refrain from donating plasma.
[2018-01-16] MEDS: MULTIVITAMINS, THERA 1 EACH TAB PO SCH (11:56)
[2018-01-16 12:57] VITALS: RESP 16
[2018-01-16 13:24] LABS: Appearance,Urine Clear (Clear); Bilirubin,Urine Negative (Negative); Blood,Urine Negative (Negative); Color,Urine Colorless; Glucose,Urine (UA) Negative (Negative); Ketones,Urine Negative (Negative); Leukocyte Esterase,Urine Negative (Negative); Nitrite,Urine Negative (Negative); PH, Urine 5.5 (5.0-8.0); Protein,Urine Negative (Negative); Specific Gravity,Urine 1.005 (1.001-1.035); Urobilinogen,Urine <2.0 mg/dL (<2.0)
[2018-01-16] MEDS: QUEtiapine 100 MG TAB PO SCH (20:31)
[2018-01-16] MEDS: ZOLPIDEM 10 MG TAB PO SCH (20:32)
[2018-01-17] MEDS: NITROGLYCERIN OINT 1 INCH/GM PACKET TOPICAL SCH ×4 (01:36→18:10)
[2018-01-17] MEDS: LEVOTHYROXINE 50 MCG TAB PO SCH (06:40)
[2018-01-17 08:26] LABS: Basophils % (A) 1 %; Eosinophils # (A) 0.2 k/uL (0-0.7); Eosinophils % (A) 3 %; HCT 44.6 % (34.0-46.0); HGB 14.2 gm/dL (11.4-16.0); Lymphocytes # (A) 1.9 k/uL (1.0-4.8); Lymphocytes % (A) 36 %; MCH 29.5 pg (25.0-35.0); MCHC 31.8 g/dL (31.0-37.0); MCV 92.9 fL (80.0-100.0); Mean Platelet Volume 7.1; Monocytes # (A) 0.3 k/uL (0-1.0); Monocytes % (A) 7 %; Neutrophils # (A) 2.6 k/uL (1.3-7.7); Neutrophils % (A) 50 %; Platelet Count 296 k/uL (150-450); RDW 14.4 % (11.5-15.5); WBC 5.2 k/uL (3.8-10.6)
[2018-01-17 08:40] LABS: Anion Gap 4 mmol/L; Blood Urea Nitrogen 11 mg/dL (7-17); Calcium 8.9 mg/dL (8.4-10.2); Carbon Dioxide 28 mmol/L (22-30); Chloride 109 mmol/L (98-107); Glucose 92 mg/dL (74-99); Magnesium 2.2 mg/dL (1.6-2.3); Potassium 4.7 mmol/L (3.5-5.1); Sodium 141 mmol/L (137-145)
--- NOTE | 2018-01-17 11:29 | ECHOF ---
Referral Reason:chest pain MEASUREMENTS -------- HEIGHT: 154.9 cm WEIGHT: 78.0 kg BP: 100/59 IVSd: 1.1 cm (0.6 - 1.1) LVIDd: 3.3 cm (3.9 - 5.3) LVPWd: 1.2 cm (0.6 - 1.1) IVSs: 1.6 cm LVIDs: 1.6 cm LVPWs: 1.7 cm Ao Diam: 2.4 cm (2.0 - 3.7) AV Cusp: 1.7 cm (1.5 - 2.6) LA Diam: 3.1 cm (2.7 - 3.8) MV EXCURSION: 16.703 mm (> 18.000) MV EF SLOPE: 87 mm/s (70 - 150) EPSS: 0.4 cm MV E Jose: 0.56 m/s MV DecT: 203 ms MV A Jose: 0.77 m/s MV E/A Ratio: 0.73 AR PHT: 474 ms RAP: 5.00 mmHg RVSP: 21.93 mmHg FINDINGS -------- Sinus rhythm. This was a technically good study. The left ventricular size is normal. Left ventricular wall thickness is normal. Overall left vent ricular systolic function is normal with, an EF between 55 - 60 %. The right ventricle is normal in size and function. The left atrium is normal in size. The right atrium is normal in size. Aortic valve is trileaflet and is mildly thickened. There is mild aortic regurgitation. The mitral valve leaflets are mildly thickened. Mild mitral annular calcification present. Mild m itral regurgitation is present. No regurgitation noted The right ventricular systolic pressure, as measured by Doppler, is 21.93mmH g. Pulmonic valve appears structurally normal. The aortic root, ascending aorta and aortic arch are normal. The pericardium is normal. CONCLUSIONS -------- 1. Sinus rhythm. 2. This was a technically good study. 3. The left ventricular size is normal. 4. Left ventricular wall thickness is normal. 5. Overall left ventricular systolic function is normal with, an EF between 55 - 60 %. 6. The right ventricle is normal in size and function. 7. The left atrium is normal in size. 8. The right atrium is normal in size. 9. Aortic valve is trileaflet and is mildly thickened. 10. There is mild aortic regurgitation. 11. The mitral valve leaflets are mildly thickened. 12. Mild mitral annular calcification present. 13. Mild mitral regurgitation is present. 14. No regurgitation noted 15. The right ventricular systolic pressure, as measured by Doppler, is 21.93mmHg. 16. Pulmonic valve appears structurally normal. 17. The aortic root, ascending aorta and aortic arch are normal. 18. The pericardium is normal. TERRITORY MANAGER GENERAL SALES: Cady Duarte RDCS
--- NOTE | 2018-01-17 13:20 | P.PN ---
Subjective This is a pleasant 62-year-old female past medical history significant for hypothyroidism. An acute coronary event has been ruled out with no EKG evidence of ischemia negative cardiac enzymes P a denies any symptoms of chest pain, shortness of breath, dizziness or palpitations. Blood pressure 160/71 heart rate 65 afebrile maintaining oxygen saturation on room air. Laboratory data reviewed, WBC 5.2 down from 15.3 on admission, hemoglobin 14.2, platelets 296, sodium 141, potassium 4.7, creatinine 0.65, cardiac enzymes negative 3, LDL 146 and HDL 61. Objective - Vital Signs Vital signs: Vital Signs Temp 97.9 F 01/17/18 11:34 Pulse 65 01/17/18 12:00 Resp 16 01/17/18 12:00 BP 160/71 01/17/18 11:34 Pulse Ox 96 01/17/18 11:34 Intake & Output 01/16/18 01/17/18 01/17/18 18:59 06:59 18:59 Other: Voiding Method Toilet Toilet Toilet # Voids 2 # Bowel Movements 1 - Exam GENERAL: Well-appearing, well-nourished and in no acute distress. NECK: Supple without JVD or thyromegaly. LUNGS: Breath sounds clear to auscultation bilaterally. Respiration equal and unlabored. No wheezes, rales or rhonchi. HEART: Regular rate and rhythm without murmurs, rubs or gallops. S1 and S2 heard. EXTREMITIES: Normal range of motion, no edema. No clubbing or cyanosis. Peripheral pulses intact. - Labs CBC & Chem 7: 01/17/18 07:54 01/17/18 07:54 Labs: Abnormal Lab Results - Last 24 Hours (Table) 01/17/18 Range/Units 07:54 Chloride 109 H (98-107) mmol/L Assessment and Plan Assessment: ASSESSMENT Chest pain, atypical. Acute coronary event has been ruled out with no EKG evidence of ischemia and negative cardiac enzymes. Hypothyroidism Dyslipidemia PLAN An acute coronary event has been ruled out with no EKG evidence of ischemia and negative cardiac enzymes. Proceed with stress echocardiogram to assess her stress induced cardiac ischemia. If stress test is normal she is stable from a cardiac perspective. Lifestyle modifications discussed for lowering of LDL cholesterol with diet and exercise. Follow-up lipid panel to be obtained in 3-6 months. Follow-up with Dr. Willingham in 2-3 weeks. Nurse Practitioner note has been reviewed, I agree with a documented findings and plan of care. Patient was seen and examined.
[2018-01-17] MEDS: FERROUS SULFATE 325 MG TAB PO SCH (14:03)
[2018-01-17] MEDS: LORATADINE 10 MG TAB PO SCH (14:03)
[2018-01-17] MEDS: ASPIRIN 325 MG TAB PO SCH (14:03)
[2018-01-17] MEDS: CHOLECALCIFEROL 1,000 UNIT TAB PO SCH (14:04)
[2018-01-17] MEDS: MULTIVITAMINS, THERA 1 EACH TAB PO SCH (14:04)
[2018-01-17] MEDS: OXcarbazepine 300 MG TAB PO SCH (14:57)
[2018-01-17 16:52] VITALS: BP 133/64; PULSE 79; TEMP 97.7
[2018-01-17] MEDS: LORazepam 1 MG TAB PO SCH (17:18)
--- NOTE | 2018-01-17 17:18 | P.STRESS ---
- Stress Test Note Stress Test Results/Findings: Exam Performed: dobutamine stress echo Exam Date: 01/17/18 Reason for Exam: CHEST PAIN Height: 5 ft 1 in Weight: 78.018 kg Protocol: DSE Stage: 3 Duration of Exercise: 7:15 Resting Heart Rate: 89 Resting Blood Pressure: 124/63 Maximum Achieved Heart Rate: 133 Maximum Achieved Blood Pressure: 199/87 85% PMHR: 133 100% PMHR: 156 METS: 8.5 Technologist Comment: Stress Test Results/Findings: This is a 62-year-old female with history of ischemic heart disease in the family is admitted to the hospital with chest pain. Stress data: Baseline EKG showed sinus rhythm with normal MT interval, QRS duration. Blood pressure at rest is 124/63 with pulse rate of 89. Patient walked on the [place] protocol for 7 minutes and 15 seconds achieving a max moderate to 133 with blood pressure 199/87. EKGs taken during and after exercise did not reveal any significant changes from the baseline. Echo data: Baseline echo images showed normal wall motion and thickening. Exercise echo images showed augmentation of wall motion and thickening in all segments. Final impression: #1. Negative stress test #2. Negative stress echo.
--- NOTE | 2018-01-18 10:25 | ECHOS ---
Stress Test Results/Findings: Exam Performed: dobutamine stress echo Exam Date: 01/17/18 Reason for Exam: CHEST PAIN Height: 5 ft 1 in Weight: 78.018 kg Protocol: DSE Stage: 3 Duration of Exercise: 7:15 Resting Heart Rate: 89 Resting Blood Pressure: 124/63 Maximum Achieved Heart Rate: 133 Maximum Achieved Blood Pressure: 199/87 85% PMHR: 133 100% PMHR: 156 METS: 8.5 Technologist Comment: Stress Test Results/Findings: This is a 62-year-old female with history of ischemic heart disease in the family is admitted to the hospital with chest pain. Stress data: Baseline EKG showed sinus rhythm with normal [place] interval, QRS duration. Blood pressure at rest is 124/63 with pulse rate of 89. Patient walked on the [place] protocol for 7 minutes and 15 seconds achieving a max moderate to 133 with blood pressure 199/87. EKGs taken during and after exercise did not reveal any significant changes from the baseline. Echo data: Baseline echo images showed normal wall motion and thickening. Exercise echo images showed augmentation of wall motion and thickening in all segments. Final impression: #1. Negative stress test #2. Negative stress echo. JOSELYN
== END 2018-01-17 18:20 | disposition home or self-care (01) ==
LOC: EC 11:07 → 3OBS 13:23
PROVIDERS: ADMIT Family Medicine; ATTEND Family Medicine
DX: R07.89 Other chest pain (principal); R55 Syncope and collapse; R32 Unspecified urinary incontinence; R15.9 Full incontinence of feces; D72.829 Elevated white blood cell count, unspecified; E03.9 Hypothyroidism, unspecified; E78.5 Hyperlipidemia, unspecified; R19.7 Diarrhea, unspecified; F31.9 Bipolar disorder, unspecified; F41.9 Anxiety disorder, unspecified; G43.909 Migraine, unspecified, not intractable, without status migrainosus; I49.9 Cardiac arrhythmia, unspecified; Z79.890 Hormone replacement therapy; Z79.899 Other long term (current) drug therapy; Z88.5 Allergy status to narcotic agent; Z88.8 Allergy status to other drugs, medicaments and biological substances; Z90.49 Acquired absence of other specified parts of digestive tract; F10.21 Alcohol dependence, in remission; Z98.51 Tubal ligation status; Z82.49 Family history of ischemic heart disease and other diseases of the circulatory system; Z83.3 Family history of diabetes mellitus; Z80.9 Family history of malignant neoplasm, unspecified; Z82.3 Family history of stroke; Z83.6 Family history of other diseases of the respiratory system
CPT/HCPCS: 96360; 99285; 36415; 93005; 93306; 93351; 80061; 80053; 80048; 82550 ×2; 82553 ×2; 83735 ×2; 84484 ×2; 85025 ×2; 85610; 85730; 81003; 71046; G0378 ×3

== ENCOUNTER → 2018-01-20 | Outpatient (CLI) | payer OTHER ==
--- NOTE | 2018-01-21 08:00 | MM ---
Reason for exam: screening (asymptomatic). Last mammogram was performed 1 year ago. History: Patient is postmenopausal. Family history of breast cancer in sister at age 57 and breast cancer in grandmother. Benign excisional biopsy of the right breast, October 29, 2000. Took hormonal contraceptives for 4 years beginning at age 9. Physical Findings: A clinical breast exam by your physician is recommended on an annual basis and results should be correlated with mammographic findings. MG 3D Screening Mammo W/Cad Bilateral CC and MLO view(s) were taken. Prior study comparison: January 19, 2017, bilateral MG 3d screening mammo w/cad. December 24, 2015, bilateral MG screening mammo w CAD. There are scattered fibroglandular densities. There are benign appearing vascular calcifications bilaterally. There is no discrete abnormality. ASSESSMENT: Benign, BI-RAD 2 RECOMMENDATION: Routine screening mammogram of both breasts in 1 year.
== END ==
LOC: RADMAMWWP 10:55
PROVIDERS: ATTEND Family Medicine
DX: Z12.31 Encounter for screening mammogram for malignant neoplasm of breast (principal); Z80.3 Family history of malignant neoplasm of breast
CPT/HCPCS: 77063; 77067

== ENCOUNTER → 2018-02-22 | Outpatient (CLI) | payer OTHER ==
[2018-02-22 13:53] LABS: Basophils # (A) 0.1 k/uL (0-0.2); Basophils % (A) 1 %; Eosinophils # (A) 0.3 k/uL (0-0.7); Eosinophils % (A) 4 %; HCT 44.9 % (34.0-46.0); HGB 14.5 gm/dL (11.4-16.0); Lymphocytes # (A) 2.5 k/uL (1.0-4.8); Lymphocytes % (A) 40 %; MCH 29.9 pg (25.0-35.0); MCHC 32.2 g/dL (31.0-37.0); MCV 92.7 fL (80.0-100.0); Mean Platelet Volume 7.7; Monocytes # (A) 0.4 k/uL (0-1.0); Monocytes % (A) 6 %; Neutrophils # (A) 2.8 k/uL (1.3-7.7); Neutrophils % (A) 45 %; Platelet Count 304 k/uL (150-450); RBC 4.84 m/uL (3.80-5.40); RDW 13.8 % (11.5-15.5); WBC 6.1 k/uL (3.8-10.6)
[2018-02-22 14:06] LABS: Prothrombin Time 9.6 sec (9.0-12.0)
[2018-02-22 19:40] LABS: Albumin 4.5 g/dL (3.80-4.90); Albumin/Globulin Ratio 2.14 (1.20-2.10); Anion Gap 7.6 mmol/L (4.00-12.00); Calcium 9.3 mg/dL (8.7-10.3); Carbon Dioxide 25.4 mmol/L (21.6-31.8); Globulin 2.1 g/dL (2.1-3.7); Potassium 4.4 mmol/L (3.5-5.5); Total Bilirubin 0.3 mg/dL (0.3-1.2); Total Protein 6.6 g/dL (6.2-8.2)
== END | disposition home or self-care (01) ==
LOC: LABWHC1 13:10
PROVIDERS: ATTEND Nurse Practitioner Family
DX: Z01.812 Encounter for preprocedural laboratory examination (principal); E78.5 Hyperlipidemia, unspecified; K21.9 Gastro-esophageal reflux disease without esophagitis; G47.33 Obstructive sleep apnea (adult) (pediatric)
CPT/HCPCS: 36415; 80053; 84443; 85025; 85610

== ENCOUNTER → 2018-05-03 | Outpatient (CLI) | payer OTHER ==
--- NOTE | 2018-05-03 15:23 | PN ---
PROGRESS NOTE This is [facility]. This is a very pleasant, 62-year-old female patient with severe symptomatic obstructive sleep apnea with an AHI of 44. The patient on CPAP pressure of 10 cm of water and today she is coming in for a compliancy check. The patient is looking very well. She is very compliant with CPAP. She is wearing it every night and she reports improvement in sleep quality in general while her being on CPAP treatment. No morning headaches. No hypersomnia or sleepiness during the day. She is able to read books and participating day-to-day activities without feeling somnolent or sleepy. Based on the compliance data, the patient has been averaging around 6 hours and 26 minutes of CPAP use every night. Her CPAP use for more than 4 hours is 83% and the patient has utilized her CPAP pretty much every night over the past several months. Her leak is 9 L/minute. Her AHI is down to 5 while on treatment and the patient is utilizing an Air Fit P10 extra small nose mask. No aerophagia. No choking or gasping sensation at nighttime during sleep. No nocturnal heartburn, chest pain, or shortness of breath. REVIEW OF SYSTEMS: A 12-point review of system was done. Positive findings as mentioned above in history of present illness. As mentioned, no chest pain, no shortness of breath. No altered mentation. No hypersomnia or sleepiness. No feeling of drowsy or sleepy during the day. No anxiety, no depression. No altered mentation. No symptoms of insomnia, grinding of the teeth. No restlessness in the lower extremities. No sweating, no palpitation, no heartburn, no claustrophobia, no depression. PHYSICAL EXAMINATION: BP is 142/87, pulse 84, respirations 16, temperature 97.1, saturation is 95% on room air. Weight is 177. GENERAL APPEARANCE: Calm, comfortable. HEAD: Atraumatic, normocephalic. NECK: Supple. There is no JVD. No goiter or neck masses. Mallampati class IV. LUNGS: Clear to auscultation. HEART: Sounds regular rate and rhythm. Normal S1, S2. No S3, S4. No murmurs. ABDOMEN: Soft, nontender. No organomegaly. EXTREMITIES: No edema. No cyanosis or clubbing. NEUROLOGIC: Alert and awake x3. No focal neurological deficits. PSYCHIATRIC: Negative for anxiety or depression. IMPRESSION: 1. Severe obstructive sleep apnea, apnea-hypopnea index of 44, currently on CPAP pressure of 10 with excellent clinical response and compliance. 2. Chronic insomnia, currently inactive and stable and the patient is able to generate good 6 hours of sleep without any major complaints or issues or difficulties. She is on a combination of Ativan and Seroquel and Ambien. 3. Chronic anxiety. 4. Bipolar disorder. 5. Migraines. 6. Hypothyroidism. PLAN: Continue same treatment, keep the same CPAP pressure setting, keep the same mask interface and send a prescription for an Air Fit extra-small nose pillows to [facility]. Treatment of her chronic anxiety and bipolar disorder. Treatment of her chronic insomnia. Will be kept unchanged. No active migraines. The patient is benefitting from treatment. Will see her back in a year's time in follow up, earlier if needed. MMODL / IJN: [id number] /
== END ==
LOC: SLEEP 14:06
PROVIDERS: ATTEND Internal Medicine Critical Care Medicine
DX: G47.33 Obstructive sleep apnea (adult) (pediatric) (principal); F41.9 Anxiety disorder, unspecified; F31.9 Bipolar disorder, unspecified; G43.909 Migraine, unspecified, not intractable, without status migrainosus; E03.9 Hypothyroidism, unspecified; Z99.89 Dependence on other enabling machines and devices

== ENCOUNTER 2018-08-22 20:45 | Observation (INO) | payer OTHER ==
[2018-08-22] MEDS ORDERED: ASPIRIN 325 MG TAB PO STA (21:32)
[2018-08-22 22:24] LABS: Basophils % (A) 1 %; Eosinophils # (A) 0.3 k/uL (0-0.7); Eosinophils % (A) 5 %; HCT 48.4 % (34.0-46.0); HGB 15.1 gm/dL (11.4-16.0); Lymphocytes # (A) 2.6 k/uL (1.0-4.8); Lymphocytes % (A) 45 %; MCH 29.2 pg (25.0-35.0); MCHC 31.3 g/dL (31.0-37.0); MCV 93.3 fL (80.0-100.0); Mean Platelet Volume 8.1; Monocytes # (A) 0.5 k/uL (0-1.0); Monocytes % (A) 8 %; Neutrophils # (A) 2.2 k/uL (1.3-7.7); Neutrophils % (A) 39 %; Platelet Count 292 k/uL (150-450); RBC 5.19 m/uL (3.80-5.40); RDW 13.9 % (11.5-15.5); WBC 5.7 k/uL (3.8-10.6)
[2018-08-22 22:37] LABS: Anion Gap 9 mmol/L; Blood Urea Nitrogen 18 mg/dL (7-17); Calcium 10.6 mg/dL (8.4-10.2); Carbon Dioxide 26 mmol/L (22-30); Chloride 105 mmol/L (98-107); Glucose 94 mg/dL (74-99); Lipase 118 U/L (23-300); Potassium 4.3 mmol/L (3.5-5.1); Sodium 140 mmol/L (137-145)
--- NOTE | 2018-08-22 22:45 | XR ---
EXAM: XR Chest, 2 Views CLINICAL HISTORY: ITS.REASON XR Reason: Pain TECHNIQUE: Frontal and lateral views of the chest. COMPARISON: Chest radiographs 01/15/2018. FINDINGS: Lungs: Unremarkable. No consolidation. Pleural space: Unremarkable. No pneumothorax. Heart: Unremarkable. No cardiomegaly. Mediastinum: Unremarkable. Bones/joints: Degenerative change in the acromioclavicular joints. IMPRESSION: No acute cardiopulmonary abnormality.
[2018-08-22] MEDS ORDERED: ACETAMINOPHEN TAB 325 MG TAB PO STA (23:47)
--- NOTE | 2018-08-22 23:47 | ED ---
Chest Pain HPI - General Chief Complaint: Chest Pain Stated Complaint: High BP Time Seen by Provider: 08/22/18 21:09 Source: patient, family Mode of arrival: wheelchair Limitations: no limitations - History of Present Illness Initial Comments: 62-year-old female presenting with 2 days of intermittent left-sided sharp stabbing nonradiating chest pain is accompanied by diaphoresis and nausea, occur spontaneously while at rest, and resolved spontaneously without intervention. She's also been having shortness of breath while at rest while having the chest pain. She states she's been using a wrist blood pressure cuff and that while she's having these episodes she has had blood pressure readings over 200. States she is currently on metoprolol for hypertension. States her last stress test was 3 years prior and was negative. Denies any history of DVT PE, recent surgery, active cancer, hormone replacement therapy. She denies any hyperlipidemia or tobacco abuse. She admits to multiple stressors in her life and states that she is concerned this could be causing her symptoms. She currently sees a psychiatrist who she states is working with the medication she is currently on. - Related Data Home Medications Medication Instructions Recorded Confirmed LORazepam [Lorazepam] 1 mg PO TID 05/04/14 08/22/18 Levocetirizine Dihydrochloride 5 mg PO QAM 02/07/15 08/22/18 [Xyzal] Multivitamins, Thera [Multivitamin 1 tab PO DAILY 02/15/15 08/22/18 (formulary)] Zolpidem [Ambien] 10 mg PO HS 02/05/17 08/22/18 Biotin 5 mg PO DAILY 01/15/18 08/22/18 Cholecalciferol [Vitamin D3] 1,000 unit PO DAILY 01/15/18 08/22/18 Ferrous Sulfate [Iron] 325 mg PO DAILY 01/15/18 08/22/18 OXcarbazepine [Trileptal] 300 mg PO DAILY 01/15/18 08/22/18 [place]-3 Fatty Acids/Fish Oil [Fish 1 cap PO DAILY 01/15/18 08/22/18 Oil 1,000 mg Softgel] QUEtiapine [SEROquel] 300 mg PO HS 01/15/18 08/22/18 SUMAtriptan SUCCINATE [Imitrex] 50 mg PO ONCE PRN 01/15/18 08/22/18 Aspirin 325 mg PO DAILY 08/22/18 08/22/18 Levothyroxine Sodium [Synthroid] 75 mcg PO DAILY 08/22/18 08/22/18 Metoprolol Tartrate [Lopressor] 12.5 mg PO DAILY PRN 08/22/18 08/22/18 Promethazine [Phenergan] 12.5 mg PO Q8HR PRN 08/22/18 08/22/18 Allergies Allergy/AdvReac Type Severity Reaction Status Date / Time codeine AdvReac Nausea Verified 08/22/18 21:12 trazodone AdvReac Unknown Verified 08/22/18 21:12 Review of Systems ROS Statement: Those systems with pertinent positive or pertinent negative responses have been documented in the HPI. Review of Systems Constitutional: Denies fever, chills. Positive diaphoresis Eyes: Denies change in vision, Denies pain Ears, nose, mouth, throat: Denies headaches, Denies sore throat Cardiovascular: Positive chest pain. Denies palpitations Respiratory: Denies shortness of breath, Denies cough Gastrointestinal: Denies abdominal pain. Denies nausea, vomiting, diarrhea. Genitourinary: Denies hematuria, Denies infections Musculoskeletal: Denies pain, Denies swelling Integumentary: Denies rash Neurological: Denies headache, focal weakness, focal numbness Psychiatric: Denies anxiety, Denies depression Hematologic/Lymphatic: Denies easy bleeding or bruising ROS Other: All systems not noted in ROS Statement are negative. Past Medical History Past Medical History: Neurologic Disorder Additional Past Medical History / Comment(s): hx. migraines, arrythmia, History of Any Multi-Drug Resistant Organisms: None Reported Past Surgical History: Bladder Surgery, Cholecystectomy, Orthopedic Surgery, Tubal Ligation Additional Past Surgical History / Comment(s): carpal tunnel/ several trigger fingers and toe, foot surg. RON FUNDOPLASTY, EGD last 02/18/15 WITH DILATION, spleen removal, COLONOSCOPY, BILAT WRIST SX Past Anesthesia/Blood Transfusion Reactions: No Reported Reaction Past Psychological History: Anxiety, Bipolar, Depression Smoking Status: Never smoker Past Alcohol Use History: None Reported Past Drug Use History: None Reported - Past Family History Brother(s) Family Medical History: Diabetes Mellitus Sister(s) Family Medical History: AICD/Pacemaker, Diabetes Mellitus Father Family Medical History: CVA/TIA, Myocardial Infarction ([place]) Mother Family Medical History: Cancer Additional Family Medical History / Comment(s): pulmonary edema General Exam - General Exam Comments Initial Comments: General: Awake, alert, No acute Distress HENT: Normocephalic. Atraumatic Eyes: PERRL. EOMI. No scleral icterus. No injected conjunctiva Neck: Full ROM Chest/Lungs: Clear to auscultation bilaterally. No wheezing, rhonchi, or rales Cardiac: Regular rate, rhythm. No murmurs or rubs. 2+ radial pulses bilaterally. Abdomen/GI: Soft, nontender, nondistended. No rebound, guarding, or rigidity. Musculoskeletal: Full ROM Skin: Warm, dry, intact Neurologic: A/Ox3, no weakness, no sensory deficit, no abnormal gait, no coordination deficit Psych: Anxious appearing Limitations: no limitations Course Vital Signs 08/22/18 20:50 Temperature 98.1 F Pulse Rate 59 L Respiratory 18 Rate Blood Pressure 194/84 O2 Sat by Pulse 96 Oximetry Chest Pain MDM - MDM [age] female presenting with chest pain. Initial exam the patient is awake, alert, no acute distress. VSS. EKG shows sinus bradycardia with a first-degree AV block at a rate of 51 bpm. Patient's Wells PE score is 1.5. Her d-dimer was negative. Heart score 4. Her last stress test was 3 years prior. Laboratory work appears otherwise unremarkable. Chest xray negative. She is not markedly hypertensive here. Her symptoms resolved and therefore heparin was not initiated. I do not suspect unstable angina at this time. Spoke with Dr. Ching who is agreeable to admission with cardiology on consult. Patient is requesting an exercise stress test. - Wells Criteria Clinical Symptoms of DVT: (0) No No Alternative Diagnosis: (0) No Immobilization of Surgery in Previous 4 Weeks: (0) No Previous DVT/PE: (0) No Hemoptysis: (0) No Malignancy: (0) No Disposition Clinical Impression: Chest pain Disposition: ADMITTED IP TO THIS [facility] Decision to Admit Reason: Admit from EC Decision Date: 08/22/18 Decision Time: 23:53
[2018-08-22] MEDS ORDERED: NALOXONE 0.4 MG/ML 1 ML VIAL IV PRN (23:54)
[2018-08-22] MEDS ORDERED: ACETAMINOPHEN TAB 325 MG TAB PO PRN (23:54)
[2018-08-22] MEDS ORDERED: PROMETHAZINE 25 MG TAB PO PRN (23:58)
[2018-08-23] MEDS ORDERED: PROMETHAZINE 25 MG TAB PO STA (01:30)
[2018-08-23] MEDS: LORazepam 1 MG TAB PO SCH ×4 (02:16→20:44)
[2018-08-23] MEDS: ZOLPIDEM 10 MG TAB PO SCH ×2 (02:16→20:45)
[2018-08-23] MEDS ORDERED: OXcarbazepine 300 MG TAB PO SCH ×2 (09:00→21:00)
[2018-08-23] MEDS ORDERED: LORazepam 1 MG TAB PO SCH (09:00)
[2018-08-23] MEDS ORDERED: METOPROLOL TARTRATE 12.5 MG TAB PO PRN (09:00)
[2018-08-23] MEDS ORDERED: NON-FORMULARY DRUG (Biotin [Biotin] 5 MG) PO SCH (09:00)
[2018-08-23] MEDS ORDERED: ASPIRIN 325 MG TAB PO SCH (09:00)
[2018-08-23] MEDS: CHOLECALCIFEROL 1,000 UNIT TAB PO SCH (09:07)
[2018-08-23] MEDS: ASPIRIN 81 MG PO SCH (09:07)
[2018-08-23] MEDS ORDERED: SUMAtriptan SUCCINATE 50 MG TAB PO PRN (09:54)
--- NOTE | 2018-08-23 09:55 | P.HPIM ---
History of Present Illness H&P Date: 08/23/18 Chief Complaint: Chest pain This is a 62-year-old white female complaining of a 6 day history of chest pain. She reports the symptoms are intermittent and lasting minutes to hours and typically stabbing in quality. It would sometimes radiate to the to her neck and lead to a headache. She has been frequently monitoring her blood pressure very concerned about her labile hypertension. She seen cardiology was recently in metoprolol. She reports concerns her blood pressure being too high to low. She had some shortness of breath with some of the episodes. She denies any nausea vomiting, diarrhea or constipation recently. She is currently on the observation floor. Troponins 2 of the negative. Other laboratory studies are normal. She has an extensive history of anxiety. She is currently being worked up for sleep apnea in the office. Review of Systems All systems: negative Past Medical History Past Medical History: Neurologic Disorder, Seizure Disorder, Thyroid Disorder Additional Past Medical History / Comment(s): hx. migraines, arrythmia, bipolar "psychosis", anxiety/depression, gastric bipass, last seizure 1999. History of Any Multi-Drug Resistant Organisms: None Reported Past Surgical History: Bariatric Surgery, Bladder Surgery, Cholecystectomy, Orthopedic Surgery, Tubal Ligation Additional Past Surgical History / Comment(s): carpal tunnel/ several trigger fingers and toe, foot surg. RON FUNDOPLASTY, EGD last 02/18/15 WITH DILATION, spleen removal, COLONOSCOPY, BILAT WRIST SX, gastric bipass. Past Anesthesia/Blood Transfusion Reactions: No Reported Reaction Past Psychological History: Anxiety, Bipolar, Depression Additional Psychological History / Comment(s): "psychosis" SEES DR. Mosqueda. 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 Past Drug Use History: None Reported - Past Family History Brother(s) Family Medical History: Diabetes Mellitus Sister(s) Family Medical History: AICD/Pacemaker, Diabetes Mellitus Father Family Medical History: CVA/TIA, Myocardial Infarction ([place]) Mother Family Medical History: Cancer Additional Family Medical History / Comment(s): pulmonary edema Medications and Allergies Home Medications Medication Instructions Recorded Confirmed Type LORazepam [Lorazepam] 1 mg PO TID 05/04/14 08/22/18 History Levocetirizine Dihydrochloride 5 mg PO QAM 10/29/15 05/13/19 History [Xyzal] Multivitamins, Thera [Multivitamin 1 tab PO DAILY 02/15/15 08/22/18 History (formulary)] Zolpidem [Ambien] 10 mg PO HS 02/05/17 08/22/18 History Biotin 5 mg PO DAILY 01/15/18 08/22/18 History Cholecalciferol [Vitamin D3] 1,000 unit PO DAILY 01/15/18 08/22/18 History Ferrous Sulfate [Iron] 325 mg PO DAILY 01/15/18 08/22/18 History OXcarbazepine [Trileptal] 300 mg PO DAILY 01/15/18 08/22/18 History [place]-3 Fatty Acids/Fish Oil [Fish 1 cap PO DAILY 01/15/18 08/22/18 History Oil 1,000 mg Softgel] QUEtiapine [SEROquel] 300 mg PO HS 01/15/18 08/22/18 History SUMAtriptan SUCCINATE [Imitrex] 50 mg PO ONCE PRN 01/15/18 08/22/18 History Aspirin 325 mg PO DAILY 08/22/18 08/22/18 History Levothyroxine Sodium [Synthroid] 75 mcg PO DAILY 08/22/18 08/22/18 History Metoprolol Tartrate [Lopressor] 12.5 mg PO DAILY PRN 08/22/18 08/22/18 History Promethazine [Phenergan] 12.5 mg PO Q8HR PRN 08/22/18 08/22/18 History Allergies Allergy/AdvReac Type Severity Reaction Status Date / Time codeine AdvReac Nausea Verified 08/22/18 21:12 trazodone AdvReac Unknown Verified 08/22/18 21:12 Physical Exam Vitals: Vital Signs Temp Pulse Pulse Resp BP BP Pulse Ox 08/23/18 08:00 98.2 F 64 15 137/76 97 08/23/18 04:00 97.6 F 63 18 170/73 98 08/23/18 03:50 18 08/23/18 02:24 18 08/23/18 01:52 97.2 F L 54 L 18 169/84 98 08/23/18 01:21 17 08/23/18 01:17 97.7 F 51 L 17 157/71 97 08/23/18 01:00 52 L 141/56 08/23/18 00:30 50 L 19 140/78 08/23/18 00:00 57 L 161/76 08/22/18 23:30 49 L 158/77 08/22/18 23:00 52 L 152/78 08/22/18 22:30 152/78 08/22/18 22:14 53 L 97 08/22/18 20:50 98.1 F 59 L 18 194/84 96 Intake and Output 08/22/18 08/23/18 08/23/18 22:59 06:59 14:59 Other: # Voids 1 Weight 74.389 kg GENERAL: Well-appearing, well-nourished and in no acute distress. HEAD: Atraumatic, normocephalic. EYES: Pupils equal round and reactive to light, extraocular movements intact, sclera anicteric, conjunctiva are normal. ENT:nares patent, oropharynx clear without exudates. Moist mucous membranes. NECK: Normal range of motion, supple without lymphadenopathy or JVD, no thyromegaly LUNGS: Breath sounds clear to auscultation bilaterally and equal. No wheezes rales or rhonchi. HEART: Regular rate and rhythm without murmurs, rubs or gallops.S1S2 Normal ABDOMEN: Soft, nontender, normoactive bowel sounds. No guarding, no rebound. N o masses appreciated. EXTREMITIES: Normal range of motion, no pitting or edema. No clubbing or cyan osis. NEUROLOGICAL: Cranial nerves II through XII grossly intact. Normal speech, normal gait. PSYCH: Normal mood, normal affect. SKIN: Warm, Dry, normal turgor, no rashes or lesions noted. Results CBC & Chem 7: 08/22/18 22:05 08/22/18 22:05 Labs: Abnormal Lab Results - Last 24 Hours (Table) 08/22/18 08/22/18 Range/Units 22:05 22:05 Hct 48.4 H (34.0-46.0) % BUN 18 H (7-17) mg/dL Calcium 10.6 H (8.4-10.2) mg/dL Chest x-ray: report reviewed Thrombosis Risk Factor Assmnt - DVT/VTE Prophylaxis DVT/VTE Prophylaxis: Low risk, early ambulation encouraged - Choose All That Apply Each Risk Factor Represents 2 Points: Age 61-74 years Other congenital or acquired thrombophilia - If yes, enter type in comment: No Thrombosis Risk Factor Assessment Total Risk Factor Score: 2 Thrombosis Risk Factor Assessment Level: Low Risk Assessment and Plan (1) Essential (primary) hypertension Current Visit: Yes Status: Acute Code(s): I10 - ESSENTIAL (PRIMARY) HYPERTENSION SNOMED Code(s): 03246622 (2) Anxiety Current Visit: Yes Status: Acute Code(s): F41.9 - ANXIETY DISORDER, UNSPECIFIED SNOMED Code(s): 91221458 (3) Migraine Current Visit: Yes Status: Acute Code(s): G43.909 - MIGRAINE, UNSP, NOT INTRACTABLE, WITHOUT STATUS MIGRAINOSUS SNOMED Code(s): 25374619 (4) Hypothyroidism Current Visit: Yes Status: Acute Code(s): E03.9 - HYPOTHYROIDISM, UNSPECIFIED SNOMED Code(s): 71074198 (5) Chest pain Current Visit: Yes Status: Acute Code(s): R07.9 - CHEST PAIN, UNSPECIFIED SNOMED Code(s): 45718897 Plan: She did have a stress test back in January 2018 was normal. We'll consult cardiology wait on the recommendations. She continue on current medications. Every testing is normal and her symptoms are resolved or improved, we'll plan discharge later this afternoon.
--- NOTE | 2018-08-23 10:06 | P.CRDCN ---
History of Present Illness History of present illness: This is a pleasant 62-year-old female past medical history significant for seizure disorder, hypothyroidism, uncontrolled hypertension and former alcohol abuse. She follows in the office with Dr. Willingham. She also sees a negative turner apprentice out of [facility]. She states she has frequent episodes of chest discomfort and no one has been able to figure out why. She presented to [facility] after having elevated blood pressures at home for the previous 3-4 days. She states she feels and discomfort in her chest like an overall pressure sensation that radiates throughout the entire anterior chest wall associated with some mild shortness of breath. At that time she'll check her blood pressure and she is getting elevated readings in the 190s over 100 range. She does have Lopressor at home 12.5 mg she states she's been advised to take when her blood pressure is elevated. Further evaluation and into her office visits with Dr. Willingham he has recommended that she take this medication daily however she states her blood pressure sometimes she feels is too low. Since arriving at the hospital she has had no further symptoms of chest discomfort or shortness of breath. She did undergo a stress echocardiogram in January 2018 that was unremarkable for any ischemic changes. Blood pressure on arrival to the emergency department was 194/84. Through the night her blood pressures have remained elevated in the 150-160 systolic range. This morning she was 137/76. EKG reveals sinus bradycardia heart rate of 51 with a first-degree AV block. Chest x-ray is negative for an acute cardiopulmonary process. Laboratory data reviewed, WBC 5.7, hemoglobin 15.1, platelets 292, d-dimer 0.29, sodium 140, potassium 4.3, creatinine 0.73, cardiac enzymes negative 2, NT proBNP 30. At the time of my exam: CONSTITUTIONAL: Denies fever. Denies chills. EYES: Denies blurred vision. Denies vision changes. Denies eye pain. EARS, NOSE, MOUTH & THROAT: Denies headache. Denies sore throat. Denies ear pain. CARDIOVASCULAR: Denies chest pain. Denies shortness of breath. Denies orthopnea. Denies PND. Denies palpitations. RESPIRATORY: Denies cough. GASTROINTESTINAL: Denies abdominal pain. Denies diarrhea. Denies constipation. Denies nausea. Denies vomiting. MUSCULOSKELETAL: Denies myalgias. INTEGUMENTARY: Denies pruitis. Denies rash. NEUROLOGIC: Denies numbness. Denies tingling. Denies weakness. PSYCHIATRIC: Denies anxiety. Denies depression. ENDOCRINE: Denies fatigue. Denies weight change. Denies polydipsia. Denies polyurina. GENITOURINARY: Denies burning, hematuria or urgency with micturation. HEMATOLOGIC: Denies history of anemia. Denies bleeding. GENERAL: This is a 62-year-old female in no apparent distress at the time of my examination. HEENT: Head is atraumatic, normocephalic. Pupils are equal, round. Sclerae anicteric. Conjunctivae are clear. Mucous membranes of the mouth are moist. Neck is supple. There is no jugular venous distention. No carotid bruit is heard. LUNGS: Clear to auscultation no wheezes, rales or rhonchi. No chest wall tenderness is noted on palpation or with deep breathing. HEART: Regular rate and rhythm without murmurs, rubs or gallops. S1 and S2 heard. ABDOMEN: Soft, nontender. Bowel sounds are heard. No organomegaly noted. EXTREMITIES: No evidence of peripheral edema and no calf tenderness noted. VASCULAR: Radial and dorsalis pedis pulses palpated, no evidence of clubbing. NEUROLOGIC: Patient is awake, alert and oriented x3. ASSESSMENT Chest pain, atypical for angina in the setting of uncontrolled hypertension. No EKG evidence of ischemia. Hypertension, uncontrolled Hypothyroidism PLAN Obtain 2-D echocardiogram and Doppler study to assess cardiac structure and function. Initiate on amlodipine 5 mg daily and losartan 25 mg daily. Discontinue lopressor. Increase activity and ambulation in the halls, assess for exertional chest pain. Normal stress test 7 months ago with similar presentation. Recommend optimal blood pressure control and follow up with Dr. Willingham in the office. Lengthy discussion with the patient regarding compliance with blood pressure medications. Thank you kindly for this consultation. Nurse Practitioner note has been reviewed, I agree with a documented findings and plan of care. Patient was seen and examined. Past Medical History Past Medical History: Neurologic Disorder, Seizure Disorder, Thyroid Disorder Additional Past Medical History / Comment(s): hx. migraines, arrythmia, bipolar "psychosis", anxiety/depression, gastric bipass, last seizure 1999. History of Any Multi-Drug Resistant Organisms: None Reported Past Surgical History: Bariatric Surgery, Bladder Surgery, Cholecystectomy, Orthopedic Surgery, Tubal Ligation Additional Past Surgical History / Comment(s): carpal tunnel/ several trigger fingers and toe, foot surg. RON FUNDOPLASTY, EGD last 02/18/15 WITH DILATION, spleen removal, COLONOSCOPY, BILAT WRIST SX, gastric bipass. Past Anesthesia/Blood Transfusion Reactions: No Reported Reaction Past Psychological History: Anxiety, Bipolar, Depression Additional Psychological History / Comment(s): "psychosis" SEES DR. Mosqueda. 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 Past Drug Use History: None Reported - Past Family History Brother(s) Family Medical History: Diabetes Mellitus Sister(s) Family Medical History: AICD/Pacemaker, Diabetes Mellitus Father Family Medical History: CVA/TIA, Myocardial Infarction ([place]) Mother Family Medical History: Cancer Additional Family Medical History / Comment(s): pulmonary edema Medications and Allergies Home Medications Medication Instructions Recorded Confirmed Type LORazepam [Lorazepam] 1 mg PO TID 05/04/14 08/22/18 History Levocetirizine Dihydrochloride 5 mg PO QAM 02/07/15 08/22/18 History [Xyzal] Multivitamins, Thera [Multivitamin 1 tab PO DAILY 02/15/15 08/22/18 History (formulary)] Zolpidem [Ambien] 10 mg PO HS 02/05/17 08/22/18 History Biotin 5 mg PO DAILY 01/15/18 08/22/18 History Cholecalciferol [Vitamin D3] 1,000 unit PO DAILY 01/15/18 08/22/18 History Ferrous Sulfate [Iron] 325 mg PO DAILY 01/15/18 08/22/18 History OXcarbazepine [Trileptal] 300 mg PO DAILY 01/15/18 08/22/18 History [place]-3 Fatty Acids/Fish Oil [Fish 1 cap PO DAILY 01/15/18 08/22/18 History Oil 1,000 mg Softgel] QUEtiapine [SEROquel] 300 mg PO HS 01/15/18 08/22/18 History SUMAtriptan SUCCINATE [Imitrex] 50 mg PO ONCE PRN 01/15/18 08/22/18 History Aspirin 325 mg PO DAILY 08/22/18 08/22/18 History Levothyroxine Sodium [Synthroid] 75 mcg PO DAILY 08/22/18 08/22/18 History Metoprolol Tartrate [Lopressor] 12.5 mg PO DAILY PRN 08/22/18 08/22/18 History Promethazine [Phenergan] 12.5 mg PO Q8HR PRN 08/22/18 08/22/18 History Allergies Allergy/AdvReac Type Severity Reaction Status Date / Time codeine AdvReac Nausea Verified 08/22/18 21:12 trazodone AdvReac Unknown Verified 08/22/18 21:12 Physical Exam Vitals: Vital Signs Temp Pulse Pulse Resp BP BP Pulse Ox 08/23/18 08:00 98.2 F 64 15 137/76 97 08/23/18 04:00 97.6 F 63 18 170/73 98 08/23/18 03:50 18 08/23/18 02:24 18 08/23/18 01:52 97.2 F L 54 L 18 169/84 98 08/23/18 01:21 17 08/23/18 01:17 97.7 F 51 L 17 157/71 97 08/23/18 01:00 52 L 141/56 08/23/18 00:30 50 L 19 140/78 08/23/18 00:00 57 L 161/76 08/22/18 23:30 49 L 158/77 08/22/18 23:00 52 L 152/78 08/22/18 22:30 152/78 08/22/18 22:14 53 L 97 08/22/18 20:50 98.1 F 59 L 18 194/84 96 Intake and Output 08/22/18 08/23/18 08/23/18 22:59 06:59 14:59 Other: # Voids 1 Weight 74.389 kg Results 08/22/18 22:05 08/22/18 22:05 Cardiac Enzymes 08/22/18 08/23/18 Range/Units 22:05 03:26 Troponin I <0.012 <0.012 (0.000-0.034) ng/mL CBC 08/22/18 Range/Units 22:05 WBC 5.7 (3.8-10.6) k/uL RBC 5.19 (3.80-5.40) m/uL Hgb 15.1 (11.4-16.0) gm/dL Hct 48.4 H (34.0-46.0) % Plt Count 292 (150-450) k/uL Comprehensive Metabolic Panel 08/22/18 Range/Units 22:05 Sodium 140 (137-145) mmol/L Potassium 4.3 (3.5-5.1) mmol/L Chloride 105 (98-107) mmol/L Carbon Dioxide 26 (22-30) mmol/L BUN 18 H (7-17) mg/dL Creatinine 0.73 (0.52-1.04) mg/dL Glucose 94 (74-99) mg/dL Calcium 10.6 H (8.4-10.2) mg/dL Current Medications Generic Name Dose Route Start Last Admin Trade Name Freq PRN Reason Stop Dose Admin Acetaminophen 650 mg 08/22/18 23:54 Tylenol Tab PO Q6HR PRN Mild Pain or Fever > 100.5 Aspirin 325 mg 08/23/18 09:00 Aspirin PO DAILY [facility] Cholecalciferol 1,000 unit 08/23/18 09:00 Vitamin D3 (25 Mcg = 1000 Iu) PO DAILY REANNA Lorazepam 1 mg 08/23/18 02:13 08/23/18 02:16 Ativan PO 1 mg TID REANNA Administration Naloxone HCl 0.2 mg 08/22/18 23:54 Narcan IV Q2M PRN Opioid Reversal Oxcarbazepine 300 mg 08/23/18 09:00 Trileptal PO DAILY REANNA Quetiapine Fumarate 300 mg 08/23/18 21:00 Seroquel PO HS REANNA Zolpidem Tartrate 10 mg 08/23/18 02:06 08/23/18 02:16 Ambien PO 10 mg HS REANNA Administration Intake and Output 08/22/18 08/23/18 08/23/18 22:59 06:59 14:59 Other: # Voids 1 Weight 74.389 kg 08/22/18 22:05 08/22/18 22:05
[2018-08-23] MEDS: LEVOTHYROXINE 75 MCG TAB PO SCH (10:23)
[2018-08-23] MEDS: LOSARTAN 25 MG TAB PO SCH (10:23)
[2018-08-23] MEDS: amLODIPine 5 MG TAB PO SCH (10:23)
[2018-08-23] MEDS ORDERED: QUEtiapine 100 MG TAB PO SCH (21:00)
[2018-08-23] MEDS ORDERED: ZOLPIDEM 10 MG TAB PO SCH (21:00)
[2018-08-24] MEDS: LEVOTHYROXINE 75 MCG TAB PO SCH (05:38)
[2018-08-24 08:03] VITALS: RESP 18
[2018-08-24] MEDS: amLODIPine 5 MG TAB PO SCH (08:09)
[2018-08-24] MEDS: ASPIRIN 81 MG PO SCH (08:09)
[2018-08-24] MEDS: CHOLECALCIFEROL 1,000 UNIT TAB PO SCH (08:09)
[2018-08-24] MEDS: LOSARTAN 25 MG TAB PO SCH (08:09)
[2018-08-24] MEDS: LORazepam 1 MG TAB PO SCH (08:10)
[2018-08-24 12:17] VITALS: BP 121/73; PULSE 65; TEMP 97.6
--- NOTE | 2018-08-24 12:55 | P.PN ---
Subjective This is a pleasant 62-year-old female past medical history significant for seizure disorder, hypothyroidism, uncontrolled hypertension and former alcohol abuse. She follows in the office with Dr. Willingham. She also sees a medical dermatologist out of [facility]. She states she has frequent episodes of chest discomfort and no one has been able to figure out why. She presented to the hospital after having elevated blood pressures at home for the previous 3-4 days. She states she feels and discomfort in her chest like an overall pressure sensation that radiates throughout the entire anterior chest wall associated with some mild shortness of breath. At that time she'll check her blood pressure and she is getting elevated readings in the 190s over 100 range. She does have Lopressor at home 12.5 mg she states she's been advised to take when her blood pressure is elevated. Further evaluation and into her office visits with Dr. Willingham he has recommended that she take this medication daily however she states her blood pressure sometimes she feels is too low. Since arriving at the hospital she has had no further symptoms of chest discomfort or shortness of breath. She did undergo a stress echocardiogram in January 2018 that was unremarkable for any ischemic changes. Blood pressure on arrival to the emergency department was 194/84. Through the night her blood pressures have remained elevated in the 150-160 systolic range. This morning she was 137/76. 08/24/2018 Echocardiogram obtained and reviewed. Blood pressure tolerating additional medication, 121/73 heart rate 65. She denies chest pain, shortness of breath, dizziness or palpitations. Increased activity ellicted no anginal symptoms. GENERAL: This is a 62-year-old female in no apparent distress at the time of my examination. HEENT: Head is atraumatic, normocephalic. Pupils are equal, round. Sclerae anicteric. Conjunctivae are clear. Mucous membranes of the mouth are moist. Neck is supple. There is no jugular venous distention. No carotid bruit is heard. LUNGS: Clear to auscultation no wheezes, rales or rhonchi. No chest wall tenderness is noted on palpation or with deep breathing. HEART: Regular rate and rhythm without murmurs, rubs or gallops. S1 and S2 heard. EXTREMITIES: No evidence of peripheral edema and no calf tenderness noted. ASSESSMENT Chest pain, atypical for angina in the setting of uncontrolled hypertension. No EKG evidence of ischemia. Hypertension, uncontrolled Hypothyroidism PLAN Stable from a cardiac perspective. Follow up with Dr. Willingham in the office. Lengthy discussion with the patient regarding compliance with blood pressure medications. Nurse Practitioner note has been reviewed, I agree with a documented findings and plan of care. Patient was seen and examined. Objective - Vital Signs Vital signs: Vital Signs Temp 97.6 F 08/24/18 12:00 Pulse 65 08/24/18 12:00 Resp 18 08/24/18 12:00 BP 121/73 08/24/18 12:00 Pulse Ox 95 08/24/18 12:00 Intake & Output 08/23/18 08/24/18 08/24/18 18:59 06:59 18:59 Intake Total 480 240 Balance 480 240 Intake: Oral 480 240 Other: # Voids 2 1 - Labs CBC & Chem 7: 08/22/18 22:05 08/22/18 22:05
--- NOTE | 2018-08-24 15:06 | P.DS ---
Providers Date of admission: 08/22/18 23:54 Expected date of discharge: 08/24/18 Attending physician: Dariel Ching Consults: 08/22/18 23:55 Consult Physician Routine Consulting Provider: [facility] Consult Reason/Comments: chest pain Do you want consulting provider notified?: Yes Primary care physician: Dariel Ching [facility] Course: Final Diagnoses: (1) Essential (primary) hypertension Current Visit: Yes Status: Acute Code(s): I10 - ESSENTIAL (PRIMARY) HYPERTENSION SNOMED Code(s): 02296221 (2) Anxiety Current Visit: Yes Status: Acute Code(s): F41.9 - ANXIETY DISORDER, UNSPECIFIED SNOMED Code(s): 39251008 (3) Migraine Current Visit: Yes Status: Acute Code(s): G43.909 - MIGRAINE, UNSP, NOT INTRACTABLE, WITHOUT STATUS MIGRAINOSUS SNOMED Code(s): 02953231 (4) Hypothyroidism Current Visit: Yes Status: Acute Code(s): E03.9 - HYPOTHYROIDISM, UNSPECIFIED SNOMED Code(s): 86793316 (5) Chest pain, atypical with no EKG evidence of ischemia as per cardiology Current Visit: Yes Status: Acute Code(s): R07.9 - CHEST PAIN, UNSPECIFIED SNOMED Code(s): 35621246 Hospital course:This is a 62-year-old white female complaining of a 6 day history of chest pain. She reports the symptoms are intermittent and lasting minutes to hours and typically stabbing in quality. It would sometimes radiate to the to her neck and lead to a headache. She has been frequently monitoring her blood pressure very concerned about her labile hypertension. She seen cardiology was recently in metoprolol. She reports concerns her blood pressure being too high to low. She had some shortness of breath with some of the episodes. She denies any nausea vomiting, diarrhea or constipation recently. She is currently on the observation floor. Troponins 2 of the negative. Other laboratory studies are normal. She has an extensive history of anxiety. She is currently being worked up for sleep apnea in the office. Recent stress echo January 2018 reported as unremarkable for any ischemic changes. Evaluated by cardiology with echocardiogram obtained and reviewed. Medications adjusted with beta elizabeth discontinued, although certain and Norvasc added to med regime. Monitored overnight. VSS. No further chest pain, palpitations or shortness of breath. Denies lightheadedness dizziness or focal deficits. Significant clinical improvement. Cleared by cardiology for discharge. Patient is being discharged home in a stable condition with guarded prognosis. EXAM: GENERAL: Alert and oriented 3, no acute distress LUNGS: Breath sounds clear to auscultation bilaterally and equal. No wheezes rales or rhonchi. HEART: Regular rate and rhythm without murmurs, rubs or gallops.S1S2 Normal ABDOMEN: Soft, nontender, normoactive bowel sounds. No guarding, no rebound. No masses appreciated NEUROLOGICAL: Cranial nerves II through XII grossly intact. Normal speech, normal gait. no focal deficits . The impression and plan of care has been dictated as directed. : I performed a history and examination of this patient, discussed the same with the dictator. I agree with the dictator's note ,documented as a scribe. Any additional findings or plans will be noted. time taken: 35 minutes Patient Condition at Discharge: Stable Plan - Discharge Summary Discharge Rx Participant: Yes New Discharge Prescriptions: New Losartan [Cozaar] 25 mg PO DAILY #30 tab Aspirin EC [Ecotrin Low Dose] 81 mg PO DAILY #30 tablet. amLODIPine [Norvasc] 5 mg PO DAILY #30 tab Continue LORazepam [Lorazepam] 1 mg PO TID Levocetirizine Dihydrochloride [Xyzal] 5 mg PO QAM Multivitamins, Thera [Multivitamin (formulary)] 1 tab PO DAILY Zolpidem [Ambien] 10 mg PO HS [place]-3 Fatty Acids/Fish Oil [Fish Oil 1,000 mg Softgel] 1 cap PO DAILY Cholecalciferol [Vitamin D3 (25 Mcg = 1000 Iu)] 1,000 unit PO DAILY Biotin 5 mg PO DAILY SUMAtriptan SUCCINATE [Imitrex] 50 mg PO ONCE PRN PRN Reason: Migraine Headache QUEtiapine [SEROquel] 300 mg PO HS OXcarbazepine [Trileptal] 300 mg PO DAILY Ferrous Sulfate [Iron] 325 mg PO DAILY Promethazine [Phenergan] 12.5 mg PO Q8HR PRN PRN Reason: Nausea And Vomiting Levothyroxine Sodium [Synthroid] 75 mcg PO DAILY Discontinued Metoprolol Tartrate [Lopressor] 12.5 mg PO DAILY PRN PRN Reason: Increased Blood Pressure Aspirin 325 mg PO DAILY Discharge Medication List LORazepam [Lorazepam] 1 mg PO TID 05/04/14 [History] Levocetirizine Dihydrochloride [Xyzal] 5 mg PO QAM 02/07/15 [History] Multivitamins, Thera [Multivitamin (formulary)] 1 tab PO DAILY 02/15/15 [History] Zolpidem [Ambien] 10 mg PO HS 02/05/17 [History] Biotin 5 mg PO DAILY 01/15/18 [History] Cholecalciferol [Vitamin D3 (25 Mcg = 1000 Iu)] 1,000 unit PO DAILY 01/15/18 [History] Ferrous Sulfate [Iron] 325 mg PO DAILY 01/15/18 [History] OXcarbazepine [Trileptal] 300 mg PO DAILY 01/15/18 [History] [place]-3 Fatty Acids/Fish Oil [Fish Oil 1,000 mg Softgel] 1 cap PO DAILY 01/15/18 [History] QUEtiapine [SEROquel] 300 mg PO HS 01/15/18 [History] SUMAtriptan SUCCINATE [Imitrex] 50 mg PO ONCE PRN 01/15/18 [History] Levothyroxine Sodium [Synthroid] 75 mcg PO DAILY 08/22/18 [History] Promethazine [Phenergan] 12.5 mg PO Q8HR PRN 08/22/18 [History] Aspirin EC [Ecotrin Low Dose] 81 mg PO DAILY #30 tablet. 08/24/18 [Rx] Losartan [Cozaar] 25 mg PO DAILY #30 tab 08/24/18 [Rx] amLODIPine [Norvasc] 5 mg PO DAILY #30 tab 08/24/18 [Rx] Follow up Appointment(s)/Referral(s): Dariel Ching MD [Primary Care Provider] - 1 Week Edi Willingham MD [STAFF PHYSICIAN] - 09/08/18 3:30 pm (follow up with Luis Willingham) Ambulatory/Diagnostic Orders: Complete Blood Count w/diff [LAB.AMB] Time Frame: 3 Days, Location: None Selected Patient Instructions/Handouts: Chest Pain (DC), Hypertension (DC) Activity/Diet/Wound Care/Special Instructions: Pending cardiology clearance and final DC recommendations Discharge Disposition: HOME SELF-CARE
--- NOTE | 2018-08-26 11:48 | ECHOF ---
Referral Reason:cp, sob MEASUREMENTS -------- HEIGHT: 152.4 cm WEIGHT: 74.4 kg BP: 137/76 RVIDd: 3.3 cm (< 3.3) IVSd: 1.3 cm (0.6 - 1.1) LVIDd: 4.2 cm (3.9 - 5.3) LVPWd: 1.0 cm (0.6 - 1.1) IVSs: 1.4 cm LVIDs: 3.1 cm LVPWs: 1.3 cm LA Diam: 3.1 cm (2.7 - 3.8) LAESV Index (A-L): 29.60 ml/m Ao Diam: 2.4 cm (2.0 - 3.7) AV Cusp: 1.7 cm (1.5 - 2.6) LA Diam: 3.4 cm (2.7 - 3.8) MV EXCURSION: 15.618 mm (> 18.000) MV EF SLOPE: 60 mm/s (70 - 150) EPSS: 0.5 cm MV E Jose: 0.39 m/s MV DecT: 216 ms MV A Jose: 0.67 m/s MV E/A Ratio: 0.58 RAP: 5.00 mmHg RVSP: 8.79 mmHg FINDINGS -------- Sinus rhythm. This was a technically good study. The left ventricular size is normal. There is mild concentric left ventricular hypertrophy. Overa ll left ventricular systolic function is normal with, an EF between 55 - 60 %. The right ventricle is normal in size. The left atrial size is normal. The right atrial size is normal. Possible PFO There is mild aortic regurgitation. Mild mitral annular calcification present. Mild mitral regurgitation is present. Mild tricuspid regurgitation present. Right ventricular systolic pressure is normal at < 35 mmHg. There is no pulmonic regurgitation present. The aortic root size is normal. Normal inferior vena cava with normal inspiratory collapse consistent with estimated right atrial pre ssure of 5 mmHg. There is no pericardial effusion. CONCLUSIONS -------- 1. The left ventricular size is normal. 2. There is mild concentric left ventricular hypertrophy. 3. Overall left ventricular systolic function is normal with, an EF between 55 - 60 %. 4. The right ventricle is normal in size. 5. The left atrial size is normal. 6. The right atrial size is normal. 7. Possible PFO 8. There is mild aortic regurgitation. 9. Mild mitral annular calcification present. 10. Mild mitral regurgitation is present. 11. Mild tricuspid regurgitation present. 12. Right ventricular systolic pressure is normal at < 35 mmHg. 13. There is no pulmonic regurgitation present. 14. The aortic root size is normal. 15. Normal inferior vena cava with normal inspiratory collapse consistent with estimated right atrial pressure of 5 mmHg. 16. There is no pericardial effusion. [employer] CHIEF: Carolina Gonzalez RDCS
== END 2018-08-24 13:33 | disposition home or self-care (01) ==
LOC: EC 20:45 → 1SOBS 23:54
PROVIDERS: ADMIT Family Medicine; ATTEND Family Medicine
DX: R07.89 Other chest pain (principal); I10 Essential (primary) hypertension; I49.9 Cardiac arrhythmia, unspecified; F31.9 Bipolar disorder, unspecified; F41.9 Anxiety disorder, unspecified; I44.0 Atrioventricular block, first degree; R61 Generalized hyperhidrosis; R11.0 Nausea; R06.02 Shortness of breath; G43.909 Migraine, unspecified, not intractable, without status migrainosus; G40.909 Epilepsy, unspecified, not intractable, without status epilepticus; E03.9 Hypothyroidism, unspecified; F29 Unspecified psychosis not due to a substance or known physiological condition; F10.21 Alcohol dependence, in remission; Z79.82 Long term (current) use of aspirin; Z79.890 Hormone replacement therapy; Z79.899 Other long term (current) drug therapy; Z88.5 Allergy status to narcotic agent; Z88.8 Allergy status to other drugs, medicaments and biological substances; Z98.84 Bariatric surgery status; Z90.49 Acquired absence of other specified parts of digestive tract; Z98.51 Tubal ligation status; Z83.3 Family history of diabetes mellitus; Z82.49 Family history of ischemic heart disease and other diseases of the circulatory system; Z80.9 Family history of malignant neoplasm, unspecified; Z82.3 Family history of stroke; Z83.6 Family history of other diseases of the respiratory system
CPT/HCPCS: 36415; 71046; 80048; 83690; 83880; 84443; 84484; 85025; 85379; 93005; 93306; 99285

== ENCOUNTER 2018-09-27 08:21 | Inpatient (IN) | payer MEDICARE, OTHER ==
[2018-09-27] MEDS ORDERED: IPRATROPIUM-ALBUTEROL 3 ML NEB INHALATION STA (09:37)
[2018-09-27] MEDS ORDERED: SODIUM CHLORIDE 0.9% 1,000 ML IV STA (09:37)
--- NOTE | 2018-09-27 09:40 | ED ---
SOB HPI - General Chief Complaint: Shortness of Breath Stated Complaint: SOB Time Seen by Provider: 09/27/18 08:43 Source: patient, RN notes reviewed Mode of arrival: ambulatory Limitations: no limitations - History of Present Illness Initial Comments: This is a 63-year-old female with no prior history of lung disease who is had 5 days of cough and feeling tired and weak she denies fevers chills sweats some diarrhea she is coughing up phlegm but she's not sure what color because she swallows it she has some exertional shortness of breath also some burning chest pain with her cough. She also states that she does have a slight sore throat she believes secondary to coughing. She also is had rhinorrhea. She is nonsmoker no history of COPD or asthma. No history of any heart problems that she is aware of. No other modifying factors at this time MD Complaint: shortness of breath, cough - Related Data Home Medications Medication Instructions Recorded Confirmed LORazepam [Lorazepam] 1 mg PO QAM 05/04/14 09/27/18 Levocetirizine Dihydrochloride 5 mg PO QAM PRN 02/07/15 09/27/18 [Xyzal] Multivitamins, Thera [Multivitamin 1 tab PO DAILY 02/15/15 09/27/18 (formulary)] Zolpidem [Ambien] 10 mg PO HS PRN 02/05/17 09/27/18 Biotin 5 mg PO DAILY 01/15/18 09/27/18 Cholecalciferol [Vitamin D3 (25 1,000 unit PO DAILY 01/15/18 09/27/18 Mcg = 1000 Iu)] Ferrous Sulfate [Iron] 325 mg PO DAILY 01/15/18 09/27/18 OXcarbazepine [Trileptal] 300 mg PO TID 01/15/18 09/27/18 [place]-3 Fatty Acids/Fish Oil [Fish 1 cap PO DAILY 01/15/18 09/27/18 Oil 1,000 mg Softgel] QUEtiapine [SEROquel] 300 mg PO HS PRN 01/15/18 09/27/18 SUMAtriptan SUCCINATE [Imitrex] 50 mg PO DAILY PRN 01/15/18 09/27/18 Levothyroxine Sodium [Synthroid] 75 mcg PO DAILY 08/22/18 09/27/18 Promethazine [Phenergan] 12.5 mg PO Q8HR PRN 08/22/18 09/27/18 LORazepam [Ativan] 2 mg PO HS 09/27/18 09/27/18 Losartan [Cozaar] 25 mg PO HS 09/27/18 09/27/18 amLODIPine [Norvasc] 5 mg PO HS 09/27/18 09/27/18 Previous Rx's Medication Instructions Recorded Aspirin EC [Ecotrin Low Dose] 81 mg PO DAILY #30 tablet. 08/24/18 Allergies Allergy/AdvReac Type Severity Reaction Status Date / Time codeine AdvReac Nausea Verified 09/27/18 09:32 trazodone AdvReac NIGHTMARES Verified 09/27/18 09:32 Review of Systems ROS Statement: Those systems with pertinent positive or pertinent negative responses have been documented in the HPI. ROS Other: All systems not noted in ROS Statement are negative. Past Medical History Past Medical History: Neurologic Disorder, Seizure Disorder, Thyroid Disorder Additional Past Medical History / Comment(s): hx. migraines, arrythmia, bipolar "psychosis", anxiety/depression, gastric bipass, last seizure 1999. History of Any Multi-Drug Resistant Organisms: None Reported Past Surgical History: Bariatric Surgery, Bladder Surgery, Cholecystectomy, Orthopedic Surgery, Tubal Ligation Additional Past Surgical History / Comment(s): carpal tunnel/ several trigger fingers and toe, foot surg. RON FUNDOPLASTY, EGD last 02/18/15 WITH DILATION, spleen removal, COLONOSCOPY, BILAT WRIST SX, gastric bipass. Past Anesthesia/Blood Transfusion Reactions: No Reported Reaction Past Psychological History: Anxiety, Bipolar, Depression Smoking Status: Never smoker Past Alcohol Use History: None Reported Past Drug Use History: None Reported - Past Family History Brother(s) Family Medical History: Diabetes Mellitus Sister(s) Family Medical History: AICD/Pacemaker, Diabetes Mellitus Father Family Medical History: CVA/TIA, Myocardial Infarction ([place]) Mother Family Medical History: Cancer Additional Family Medical History / Comment(s): pulmonary edema General Exam - General Exam Comments Initial Comments: This is a well-developed well-nourished awake alert oriented 3 female Limitations: no limitations General appearance: alert, in distress Head exam: Present: atraumatic, normocephalic, normal inspection Eye exam: Present: normal appearance, PERRL, EOMI. Absent: scleral icterus, conjunctival injection, periorbital swelling ENT exam: Present: mucous membranes dry Neck exam: Present: normal inspection. Absent: tenderness, meningismus, lymphadenopathy Respiratory exam: Present: decreased breath sounds. Absent: respiratory distress, wheezes, rales, rhonchi, stridor Cardiovascular Exam: Present: tachycardia, irregular rhythm, normal heart sounds. Absent: systolic murmur, diastolic murmur, rubs, gallop, clicks GI/Abdominal exam: Present: soft, normal bowel sounds. Absent: distended, tenderness, guarding, rebound, rigid Extremities exam: Present: normal inspection, full ROM, normal capillary refill. Absent: tenderness, pedal edema, joint swelling, calf tenderness Back exam: Present: normal inspection Neurological exam: Present: alert, oriented X3, CN II-XII intact Psychiatric exam: Present: normal affect, normal mood Skin exam: Present: warm, dry, intact, normal color. Absent: rash Course Vital Signs 09/27/18 09/27/18 09/27/18 08:36 08:51 08:53 Temperature 99.6 F Pulse Rate 95 Respiratory 18 24 Rate Blood Pressure 126/74 108/67 O2 Sat by Pulse 95 93 L Oximetry 09/27/18 09/27/18 09/27/18 09:00 09:10 09:20 Temperature Pulse Rate Respiratory Rate Blood Pressure 108/67 123/71 123/71 O2 Sat by Pulse 96 94 L Oximetry 09/27/18 09/27/18 09/27/18 09:30 09:40 09:50 Temperature Pulse Rate Respiratory Rate Blood Pressure 123/71 115/76 115/76 O2 Sat by Pulse 94 L 93 L Oximetry 09/27/18 09/27/18 09/27/18 10:00 10:10 10:11 Temperature Pulse Rate 92 Respiratory Rate Blood Pressure 115/76 122/75 O2 Sat by Pulse 95 Oximetry 09/27/18 09/27/18 09/27/18 10:19 10:20 10:30 Temperature Pulse Rate 100 Respiratory Rate Blood Pressure 122/75 122/75 O2 Sat by Pulse 100 Oximetry 09/27/18 09/27/18 09/27/18 10:40 10:50 11:00 Temperature Pulse Rate 129 H 92 Respiratory 16 20 Rate Blood Pressure 128/69 128/69 128/69 O2 Sat by Pulse 95 95 Oximetry 09/27/18 09/27/18 09/27/18 11:10 11:20 11:30 Temperature Pulse Rate 93 96 95 Respiratory 23 23 33 H Rate Blood Pressure 128/81 128/81 O2 Sat by Pulse 93 L 94 L Oximetry 09/27/18 09/27/18 09/27/18 11:40 11:50 12:00 Temperature Pulse Rate 95 98 98 Respiratory 23 20 16 Rate Blood Pressure 128/81 128/81 128/81 O2 Sat by Pulse 96 98 Oximetry 09/27/18 09/27/18 12:10 12:14 Temperature Pulse Rate 93 93 Respiratory 20 16 Rate Blood Pressure 123/78 123/78 O2 Sat by Pulse 94 L 95 Oximetry - Reevaluation(s) Reevaluation #1: 09/27/18 12:40 Patient was noted have a variable tracing on the monitoring engineer repeat EKG showed a heart rate 121 with a Junctional type rhythm QRS 84 QT since QTC 43/6 10 repeat after that as there was a change on the monitor revealed a rate of 98. Interval 166 QRS 86 QT since QTC 360/43 nonspecific T-wave configuration PACs are noted Medical Decision Making - Medical Decision Making Patient was noted on multiple occasions the flipping into atrial fibrillation and then back to a sinus rhythm. I did discuss case Dr. Ching patient be admitted with cardiology consultation. - Lab Data Result diagrams: 09/27/18 10:18 09/27/18 10:50 Lab Results 09/27/18 09/27/18 09/27/18 Range/Units 10:18 10:50 10:50 WBC 7.7 (3.8-10.6) k/uL RBC 4.80 (3.80-5.40) m/uL Hgb 14.1 (11.4-16.0) gm/dL Hct 44.5 (34.0-46.0) % MCV 92.8 (80.0-100.0) fL MCH 29.5 (25.0-35.0) pg MCHC 31.7 (31.0-37.0) g/dL RDW 14.7 (11.5-15.5) % Plt Count 269 (150-450) k/uL Neutrophils % 62 % Lymphocytes % 25 % Monocytes % 9 % Eosinophils % 1 % Basophils % 1 % Neutrophils # 4.8 (1.3-7.7) k/uL Lymphocytes # 1.9 (1.0-4.8) k/uL Monocytes # 0.7 (0-1.0) k/uL Eosinophils # 0.1 (0-0.7) k/uL Basophils # 0.0 (0-0.2) k/uL PT (9.0-12.0) sec INR (<1.2) APTT (22.0-30.0) sec Sodium 139 (137-145) mmol/L Potassium 4.1 (3.5-5.1) mmol/L Chloride 107 (98-107) mmol/L Carbon Dioxide 21 L (22-30) mmol/L Anion Gap 11 mmol/L BUN 16 (7-17) mg/dL Creatinine 0.74 (0.52-1.04) mg/dL Est GFR (CKD-EPI)AfAm >90 (>60 ml/min/1.73 sqM) Est GFR (CKD-EPI)NonAf 86 (>60 ml/min/1.73 sqM) Glucose 111 H (74-99) mg/dL Calcium 9.1 (8.4-10.2) mg/dL Magnesium 1.9 (1.6-2.3) mg/dL Total Bilirubin 0.2 (0.2-1.3) mg/dL AST 36 (14-36) U/L ALT 36 (9-52) U/L Alkaline Phosphatase 92 (38-126) U/L Creatine Kinase 63 (30-135) U/L Troponin I (0.000-0.034) ng/mL NT-Pro-B Natriuret Pep pg/mL Total Protein 7.3 (6.3-8.2) g/dL Albumin 4.3 (3.5-5.0) g/dL Influenza Type A RNA Not Detected (Not Detectd) Influenza Type B (PCR) Not Detected (Not Detectd) 09/27/18 09/27/18 09/27/18 Range/Units 10:50 10:50 10:50 WBC (3.8-10.6) k/uL RBC (3.80-5.40) m/uL Hgb (11.4-16.0) gm/dL Hct (34.0-46.0) % MCV (80.0-100.0) fL MCH (25.0-35.0) pg MCHC (31.0-37.0) g/dL RDW (11.5-15.5) % Plt Count (150-450) k/uL Neutrophils % % Lymphocytes % % Monocytes % % Eosinophils % % Basophils % % Neutrophils # (1.3-7.7) k/uL Lymphocytes # (1.0-4.8) k/uL Monocytes # (0-1.0) k/uL Eosinophils # (0-0.7) k/uL Basophils # (0-0.2) k/uL PT 9.4 (9.0-12.0) sec INR 0.8 (<1.2) APTT 24.3 (22.0-30.0) sec Sodium (137-145) mmol/L Potassium (3.5-5.1) mmol/L Chloride (98-107) mmol/L Carbon Dioxide (22-30) mmol/L Anion Gap mmol/L BUN (7-17) mg/dL Creatinine (0.52-1.04) mg/dL Est GFR (CKD-EPI)AfAm (>60 ml/min/1.73 sqM) Est GFR (CKD-EPI)NonAf (>60 ml/min/1.73 sqM) Glucose (74-99) mg/dL Calcium (8.4-10.2) mg/dL Magnesium (1.6-2.3) mg/dL Total Bilirubin (0.2-1.3) mg/dL AST (14-36) U/L ALT (9-52) U/L Alkaline Phosphatase (38-126) U/L Creatine Kinase (30-135) U/L Troponin I <0.012 (0.000-0.034) ng/mL NT-Pro-B Natriuret Pep 68 pg/mL Total Protein (6.3-8.2) g/dL Albumin (3.5-5.0) g/dL Influenza Type A RNA (Not Detectd) Influenza Type B (PCR) (Not Detectd) - EKG Data -: EKG Interpreted by Me (Atrial fibrillation with a variable AV block rate was 120 QRS 88 QT since Q) - Radiology Data Radiology results: report reviewed (Imaging was reviewed no acute findings.), image reviewed Critical Care Time Critical Care Time: Yes Critical Care Time: 31 minutes of critical care time which includes initial presentation with history physical labs x-rays several reevaluation the patient to responsive therapy review of old charting that was available discussed with Dr. Ching discussion with the patient again regarding the findings admission orders and documentation the above Disposition Clinical Impression: Paroxysmal atrial fibrillation with rapid ventricular response, Acute bronchospasm Disposition: ADMITTED IP TO THIS HOSP Condition: Fair Referrals: Dariel Ching MD [Primary Care Provider] - 1-2 days
[2018-09-27] MEDS ORDERED: DILTIAZEM DRIP BOLUS FROM BAG 1 MG SOLN IV ONE (10:59)
[2018-09-27 11:02] LABS: Basophils % (A) 1 %; Eosinophils # (A) 0.1 k/uL (0-0.7); Eosinophils % (A) 1 %; HCT 44.5 % (34.0-46.0); HGB 14.1 gm/dL (11.4-16.0); Lymphocytes # (A) 1.9 k/uL (1.0-4.8); Lymphocytes % (A) 25 %; MCH 29.5 pg (25.0-35.0); MCHC 31.7 g/dL (31.0-37.0); MCV 92.8 fL (80.0-100.0); Mean Platelet Volume 7.5; Monocytes # (A) 0.7 k/uL (0-1.0); Monocytes % (A) 9 %; Neutrophils # (A) 4.8 k/uL (1.3-7.7); Neutrophils % (A) 62 %; Platelet Count 269 k/uL (150-450); RDW 14.7 % (11.5-15.5); WBC 7.7 k/uL (3.8-10.6)
[2018-09-27 11:12] LABS: INR 0.8 (<1.2); Partial Thromboplastin Time 24.3 sec (22.0-30.0); Prothrombin Time 9.4 sec (9.0-12.0)
--- NOTE | 2018-09-27 11:14 | XR ---
EXAMINATION TYPE: XR chest 2V DATE OF EXAM: 09/27/2018 COMPARISON: 2 view chest x-ray August 22, 2018 HISTORY: Shortness of breath cough congestion and fever with chills for 5 days. TECHNIQUE: Frontal and lateral views of the chest are obtained. FINDINGS: Overlying EKG leads are present. There is chronic parenchymal change without suspicious ne w focal air space opacity, pleural effusion, or pneumothorax seen. The cardiac silhouette size is wi thin normal limits. The osseous structures are intact. Cholecystectomy clips are seen best on later al view. IMPRESSION: Chronic changes without suspicious acute pulmonary process.
[2018-09-27 11:16] LABS: ALT 36 U/L (9-52); AST 36 U/L (14-36); African American GFR (CKD) >90 (>60 ml/min/1.73 sqM); Albumin 4.3 g/dL (3.5-5.0); Alkaline Phosphatase 92 U/L (38-126); Anion Gap 11 mmol/L; Blood Urea Nitrogen 16 mg/dL (7-17); Calcium 9.1 mg/dL (8.4-10.2); Carbon Dioxide 21 mmol/L (22-30); Chloride 107 mmol/L (98-107); Creatine Kinase 63 U/L (30-135); Glucose 111 mg/dL (74-99); Magnesium 1.9 mg/dL (1.6-2.3); Potassium 4.1 mmol/L (3.5-5.1); Sodium 139 mmol/L (137-145); Total Bilirubin 0.2 mg/dL (0.2-1.3); Total Protein 7.3 g/dL (6.3-8.2)
[2018-09-27] MEDS: DILTIAZEM 125 MG in SODIUM CHLORIDE 0.9% 100 ML IV SCH (12:06)
[2018-09-27] MEDS ORDERED: NALOXONE 0.4 MG/ML 1 ML VIAL IV PRN (13:12)
[2018-09-27] MEDS ORDERED: PROMETHAZINE 25 MG TAB PO PRN (13:14)
[2018-09-27] MEDS ORDERED: SUMAtriptan SUCCINATE 50 MG TAB PO PRN (13:14)
[2018-09-27] MEDS ORDERED: LORATADINE 10 MG TAB PO PRN (13:14)
[2018-09-27] MEDS ORDERED: ZOLPIDEM 10 MG TAB PO PRN (13:14)
[2018-09-27] MEDS: IPRATROPIUM-ALBUTEROL 3 ML NEB INHALATION SCH ×2 (15:57→20:35)
[2018-09-27] MEDS: OXcarbazepine 300 MG TAB PO SCH ×2 (17:37→22:14)
[2018-09-27] MEDS: SODIUM CHLORIDE 0.9% 1,000 ML IV SCH (17:37)
[2018-09-27] MEDS: ACETAMINOPHEN TAB 325 MG TAB PO PRN (19:03)
[2018-09-27] MEDS: guaiFENesin 600 MG TABLET.ER PO SCH (19:03)
[2018-09-27] MEDS: LORazepam 1 MG TAB PO SCH (20:16)
[2018-09-27] MEDS: LOSARTAN 25 MG TAB PO SCH (20:16)
[2018-09-27] MEDS ORDERED: amLODIPine 5 MG TAB PO SCH (21:00)
[2018-09-27] MEDS: QUEtiapine 100 MG TAB PO PRN (22:14)
[2018-09-28] MEDS: IPRATROPIUM-ALBUTEROL 3 ML NEB INHALATION SCH ×4 (02:09→19:29)
[2018-09-28] MEDS: LEVOTHYROXINE 75 MCG TAB PO SCH (06:38)
[2018-09-28 07:05] LABS: Basophils % (A) 1 %; Eosinophils # (A) 0.1 k/uL (0-0.7); Eosinophils % (A) 1 %; HCT 39.5 % (34.0-46.0); HGB 12.6 gm/dL (11.4-16.0); Lymphocytes % (A) 24 %; MCHC 31.9 g/dL (31.0-37.0); MCV 90.9 fL (80.0-100.0); Mean Platelet Volume 8.1; Monocytes # (A) 0.4 k/uL (0-1.0); Monocytes % (A) 9 %; Neutrophils # (A) 2.7 k/uL (1.3-7.7); Neutrophils % (A) 64 %; Platelet Count 227 k/uL (150-450); RBC 4.34 m/uL (3.80-5.40); RDW 14.7 % (11.5-15.5); WBC 4.2 k/uL (3.8-10.6)
[2018-09-28 07:15] LABS: African American GFR (CKD) >90 (>60 ml/min/1.73 sqM); Anion Gap 8 mmol/L; Blood Urea Nitrogen 13 mg/dL (7-17); Calcium 8.5 mg/dL (8.4-10.2); Carbon Dioxide 22 mmol/L (22-30); Chloride 107 mmol/L (98-107); Glucose 92 mg/dL (74-99); Potassium 4.3 mmol/L (3.5-5.1); Sodium 137 mmol/L (137-145)
[2018-09-28] MEDS: guaiFENesin 600 MG TABLET.ER PO SCH ×2 (08:57→20:13)
[2018-09-28] MEDS: OXcarbazepine 300 MG TAB PO SCH ×3 (08:57→20:12)
[2018-09-28] MEDS: MULTIVITAMINS, THERA 1 EACH TAB PO SCH (08:57)
[2018-09-28] MEDS: CHOLECALCIFEROL 1,000 UNIT TAB PO SCH (08:57)
[2018-09-28] MEDS: LORazepam 1 MG TAB PO SCH ×2 (08:57→20:12)
[2018-09-28] MEDS: FERROUS SULFATE 325 MG TAB PO SCH (08:57)
[2018-09-28] MEDS: ASPIRIN 81 MG PO SCH (08:57)
[2018-09-28] MEDS: DILTIAZEM 125 MG in SODIUM CHLORIDE 0.9% 100 ML IV SCH (08:58)
[2018-09-28] MEDS ORDERED: NON-FORMULARY DRUG (Omega-3 Fatty Acids/Fish Oil [Fish Oil 1,000 Mg Softgel] 1 CAP) PO SCH (09:00)
[2018-09-28] MEDS ORDERED: NON-FORMULARY DRUG (Biotin [Biotin] 5 MG) PO SCH (09:00)
--- NOTE | 2018-09-28 09:10 | P.CRDCN ---
History of Present Illness Consult date: 09/28/18 Requesting physician: Dariel Ching Consult reason: atrial fibrillation Chief complaint: Shortness of breath, cough, heart racing History of present illness: This is a pleasant 63-year-old female who follows regularly with Dr. Parmar in the office. She has past medical history significant for bipolar disorder, seizure disorder, hypothyroidism, uncontrolled hypertension and former alcohol abuse. Patient did undergo a stress echocardiographic study in January 2018 that was unremarkable for any ischemic changes. She presented to the hospital on this occasion with symptoms of progressively worsening shortness of breath with associated cough, she was also running a mild fever at home as well as on arrival here. Her EKG on presentation here showed atrial flutter with a rapid ventricular response. This morning patient is currently in a normal sinus rhythm. Chest x-ray shows chronic changes without suspicious acute pulmonary process. Blood pressure on arrival here 126/70 with a heart rate in the 90s, temperature 99.6, 95% on room air. White blood cell count 4.2, hemoglobin 12.6, platelet count 227. Sodium 137, potassium 4.3, BUN 13 and creatinine 0.6. Magnesium 1.9. Troponins negative 3. BNP level 68. Influenza A and B-. Past Medical History Past Medical History: Fibromyalgia, Hypertension, Neurologic Disorder, Osteoar thritis (OA), Seizure Disorder, Thyroid Disorder Additional Past Medical History / Comment(s): Migraines, past ETOH abuse but no alcohol past 22 yrs, seizure associated with alcohol withdrawal 22 yrs ago, small bowel ileus, RLS, arthritis multiple joints, hypothyroid. History of Any Multi-Drug Resistant Organisms: None Reported Past Surgical History: Bariatric Surgery, Bladder Surgery, Cholecystectomy, Orthopedic Surgery, Tubal Ligation Additional Past Surgical History / Comment(s): Gastric bypass, edmond fundloplasty then takedown which pt states involved her pancreas, pubovaginal sling, bilateral carpal tunnel releases, L knee ligament release, bilateral feet bunionectomy/reconstruction, several trigger fingers/toes, EGD with dilation, colonoscopy, spleenectomy. Past Anesthesia/Blood Transfusion Reactions: No Reported Reaction Smoking Status: Never smoker - Past Family History Brother(s) Family Medical History: Diabetes Mellitus Sister(s) Family Medical History: AICD/Pacemaker, Diabetes Mellitus Father Family Medical History: CVA/TIA, Myocardial Infarction ([place]) Mother Family Medical History: Cancer, Congestive Heart Failure (CHF) Additional Family Medical History / Comment(s): pulmonary edema. Mother of lung cancer and CHF. Medications and Allergies Home Medications Medication Instructions Recorded Confirmed Type LORazepam [Lorazepam] 1 mg PO QAM 05/04/14 09/27/18 History Levocetirizine Dihydrochloride 5 mg PO QAM PRN 02/07/15 09/27/18 History [Xyzal] Multivitamins, Thera [Multivitamin 1 tab PO DAILY 02/15/15 09/27/18 History (formulary)] Zolpidem [Ambien] 10 mg PO HS PRN 02/05/17 09/27/18 History Biotin 5 mg PO DAILY 01/15/18 09/27/18 History Cholecalciferol [Vitamin D3 (25 1,000 unit PO DAILY 01/15/18 09/27/18 History Mcg = 1000 Iu)] Ferrous Sulfate [Iron] 325 mg PO DAILY 01/15/18 09/27/18 History OXcarbazepine [Trileptal] 300 mg PO TID 01/15/18 09/27/18 History [place]-3 Fatty Acids/Fish Oil [Fish 1 cap PO DAILY 01/15/18 09/27/18 History Oil 1,000 mg Softgel] QUEtiapine [SEROquel] 300 mg PO HS PRN 01/15/18 09/27/18 History SUMAtriptan SUCCINATE [Imitrex] 50 mg PO DAILY PRN 01/15/18 09/27/18 History Levothyroxine Sodium [Synthroid] 75 mcg PO DAILY 08/22/18 09/27/18 History Promethazine [Phenergan] 12.5 mg PO Q8HR PRN 08/22/18 09/27/18 History Aspirin EC [Ecotrin Low Dose] 81 mg PO DAILY #30 tablet. 08/24/18 09/27/18 Rx LORazepam [Ativan] 2 mg PO HS 09/27/18 09/27/18 History Losartan [Cozaar] 25 mg PO HS 09/27/18 09/27/18 History amLODIPine [Norvasc] 5 mg PO HS 09/27/18 09/27/18 History Allergies Allergy/AdvReac Type Severity Reaction Status Date / Time codeine AdvReac Nausea Verified 09/27/18 09:32 trazodone AdvReac NIGHTMARES Verified 09/27/18 09:32 Physical Exam Vitals: Vital Signs Temp Pulse Pulse Resp BP BP Pulse Ox 09/28/18 07:12 88 09/28/18 06:56 84 09/28/18 03:17 85 17 09/28/18 03:16 99.8 F H 85 17 102/56 94 L 09/28/18 02:20 92 09/28/18 02:09 90 09/27/18 23:18 84 17 09/27/18 23:16 99.3 F 84 17 106/55 93 L 09/27/18 20:46 92 09/27/18 20:35 86 97 09/27/18 20:00 100.8 F H 89 20 107/57 95 09/27/18 18:05 100.3 F H 101 H 20 120/83 92 L 09/27/18 16:09 100 09/27/18 16:00 99.8 F H 96 88 18 101/69 93 L 09/27/18 14:13 91 119/70 97 09/27/18 12:14 93 16 123/78 95 09/27/18 12:10 93 20 123/78 94 L 09/27/18 12:00 98 16 128/81 09/27/18 11:50 98 20 128/81 98 09/27/18 11:40 95 23 128/81 96 09/27/18 11:30 95 33 H 128/81 09/27/18 11:20 96 23 94 L 09/27/18 11:10 93 23 128/81 93 L 09/27/18 11:00 92 20 128/69 09/27/18 10:50 129 H 16 128/69 95 09/27/18 10:40 128/69 95 09/27/18 10:30 122/75 09/27/18 10:20 122/75 100 09/27/18 10:19 100 09/27/18 10:11 92 09/27/18 10:10 122/75 95 09/27/18 10:00 115/76 09/27/18 09:50 115/76 93 L 09/27/18 09:40 115/76 94 L 09/27/18 09:30 123/71 06/18/19 09:20 123/71 94 L 09/27/18 09:10 123/71 96 09/27/18 09:00 108/67 Intake and Output 09/27/18 09/28/18 09/28/18 22:59 06:59 14:59 Intake Total 733 400 Balance 733 400 Intake: Oral 733 400 Other: Voiding Method Toilet Toilet # Voids 1 1 Weight 81.1 kg PHYSICAL EXAMINATION: GENERAL: 63-year-old female in no acute distress at the time of my examination HEENT: Head is atraumatic, normocephalic. Pupils equal, round. Sclera anicteric. Conjunctiva are clear. Mucous membranes of the mouth are moist. Neck is supple. There is no elevated jugular venous pressure. No carotid bru it is heard. HEART EXAMINATION: Heart S1-S2 with systolic murmur is heard CHEST EXAMINATION: Lungs reveal coarse scattered rhonchi throughout that clear with cough. ABDOMEN: Soft, nontender. Bowel sounds are heard. No organomegaly noted. EXTREMITIES: 2+ peripheral pulses with no evidence of peripheral edema and no calf tenderness noted. NEUROLOGIC patient is awake, alert and oriented 3 . . Results 09/28/18 06:09 09/28/18 06:09 Cardiac Enzymes 09/27/18 09/27/18 09/27/18 Range/Units 10:50 10:50 16:52 AST 36 (14-36) U/L Troponin I <0.012 <0.012 (0.000-0.034) ng/mL 09/27/18 Range/Units 22:21 AST (14-36) U/L Troponin I <0.012 (0.000-0.034) ng/mL Coagulation 09/27/18 Range/Units 10:50 PT 9.4 (9.0-12.0) sec APTT 24.3 (22.0-30.0) sec CBC 09/27/18 09/28/18 Range/Units 10:18 06:09 WBC 7.7 4.2 (3.8-10.6) k/uL RBC 4.80 4.34 (3.80-5.40) m/uL Hgb 14.1 12.6 (11.4-16.0) gm/dL Hct 44.5 39.5 (34.0-46.0) % Plt Count 269 227 (150-450) k/uL Comprehensive Metabolic Panel 09/27/18 09/28/18 Range/Units 10:50 06:09 Sodium 139 137 (137-145) mmol/L Potassium 4.1 4.3 (3.5-5.1) mmol/L Chloride 107 107 (98-107) mmol/L Carbon Dioxide 21 L 22 (22-30) mmol/L BUN 16 13 (7-17) mg/dL Creatinine 0.74 0.69 (0.52-1.04) mg/dL Glucose 111 H 92 (74-99) mg/dL Calcium 9.1 8.5 (8.4-10.2) mg/dL AST 36 (14-36) U/L ALT 36 (9-52) U/L Alkaline Phosphatase 92 (38-126) U/L Total Protein 7.3 (6.3-8.2) g/dL Albumin 4.3 (3.5-5.0) g/dL Current Medications Generic Name Dose Route Start Last Admin Trade Name Freq PRN Reason Stop Dose Admin Acetaminophen 650 mg 09/27/18 18:48 09/27/18 19:03 Tylenol Tab PO 650 mg Q6HR PRN Administration Fever and/ or Pain Albuterol/Ipratropium 3 ml 09/27/18 14:00 09/28/18 06:54 Duoneb 0.5 Mg-3 Mg/3 Ml Soln INHALATION 3 ml RT-Q6H REANNA Administration Amlodipine Besylate 5 mg 09/27/18 21:00 09/27/18 20:15 Norvasc PO 5 mg HS REANNA Administration Aspirin 81 mg 09/28/18 09:00 Aspirin PO DAILY [facility] Cholecalciferol 1,000 unit 09/28/18 09:00 Vitamin D3 (25 Mcg = 1000 Iu) PO DAILY REANNA Ferrous Sulfate 325 mg 09/28/18 09:00 Feosol PO DAILY REANNA Guaifenesin 600 mg 09/27/18 21:00 09/27/18 19:03 Mucinex PO 600 mg Q12HR REANNA Administration Diltiazem HCl 125 mg/ Sodium 125 mls @ 5 mls/hr 09/27/18 11:00 09/27/18 12:06 Chloride IV 5 mg/hr .Q24H REANNA 5 mls/hr Administration 5 MG/HR Sodium Chloride 1,000 mls @ 20 mls/hr 09/27/18 13:15 09/27/18 17:37 Saline 0.9% IV 20 mls/hr .Q24H REANNA Administration Levothyroxine Sodium 75 mcg 09/28/18 06:30 09/28/18 06:38 Synthroid PO 75 mcg DAILY@0630 REANNA Administration Loratadine 10 mg 09/27/18 13:14 Claritin PO QAM PRN Allergy Symptoms Lorazepam 1 mg 09/28/18 09:00 Ativan PO QAM REANNA Lorazepam 2 mg 09/27/18 21:00 09/27/18 20:16 Ativan PO 2 mg HS REANNA Administration Losartan Potassium 25 mg 09/27/18 21:00 09/27/18 20:16 Cozaar PO 25 mg HS REANNA Administration Multivitamins 1 each 09/28/18 09:00 Theragran PO DAILY REANNA Naloxone HCl 0.2 mg 09/27/18 13:12 Narcan IV Q2M PRN Opioid Reversal Oxcarbazepine 300 mg 09/27/18 16:00 09/27/18 22:14 Trileptal PO 300 mg TID REANNA Administration Promethazine HCl 12.5 mg 09/27/18 13:14 Phenergan PO Q8HR PRN Nausea And Vomiting Quetiapine Fumarate 300 mg 09/27/18 13:14 09/27/18 22:14 Seroquel PO 200 mg HS PRN Administration Insomnia Sumatriptan Succinate 50 mg 09/27/18 13:14 Imitrex PO DAILY PRN Migraine Headache Zolpidem Tartrate 10 mg 09/27/18 13:14 Ambien PO HS PRN Insomnia Intake and Output 09/27/18 09/28/18 09/28/18 22:59 06:59 14:59 Intake Total 733 400 Balance 733 400 Intake: Oral 733 400 Other: Voiding Method Toilet Toilet # Voids 1 1 Weight 81.1 kg 09/28/18 06:09 09/28/18 06:09 EKG Interpretations (text) Initial EKG shows atrial flutter with rapid ventricular response Assessment and Plan Plan: Assessment and plan #1 symptoms of shortness of breath with associated cough and fever suggestive possible tracheobronchitis #2 atrial flutter, atypical, be of new onset, currently in normal sinus rhythm. #3 hypertension #4 history of seizure disorder #5 hypothyroidism #6 bipolar disorder #7 history of alcohol abuse Plan We will obtain an echocardiogram with Doppler study, obtain a TSH level. Also recommend starting the patient on an antiarrhythmic to prevent recurrent epi sodes of atrial flutter. Arrhythmia could've been triggered by the tracheobronchitis, patient however states that she has frequent episodes of palpitations, no atrial arrhythmia has been documented before now. I did educate the patient about and as well. Further recommendations to follow. DNP note has been reviewed, I agree with a documented findings and plan of care. Patient was seen and examined.
[2018-09-28] MEDS: APIXABAN 5 MG TAB PO SCH ×2 (09:36→20:13)
--- NOTE | 2018-09-28 11:05 | ECHOF ---
Referral Reason:aflutter MEASUREMENTS -------- HEIGHT: 154.9 cm WEIGHT: 80.7 kg BP: 110/54 IVSd: 1.4 cm (0.6 - 1.1) LVIDd: 3.9 cm (3.9 - 5.3) LVPWd: 1.2 cm (0.6 - 1.1) IVSs: 1.7 cm LVIDs: 2.6 cm LVPWs: 1.4 cm Ao Diam: 3.0 cm (2.0 - 3.7) AV Cusp: 1.8 cm (1.5 - 2.6) LA Diam: 3.5 cm (2.7 - 3.8) MV EXCURSION: 17.484 mm (> 18.000) MV EF SLOPE: 86 mm/s (70 - 150) EPSS: 0.4 cm MV E Jose: 0.78 m/s MV DecT: 317 ms MV A Jose: 0.86 m/s MV E/A Ratio: 0.90 FINDINGS -------- Sinus rhythm. This was a technically good study. Echo performed by Braulio Singh [facility], [facility]T The left ventricular size is normal. There is moderate concentric left ventricular hypertrophy. O verall left ventricular systolic function is normal with, an EF between 55 - 60 %. The right ventricle is normal in size. The left atrium is normal in size. The right atrial size is normal. There is mild aortic valve sclerosis. The mitral valve leaflets are mildly thickened. Mild mitral regurgitation is present. The tricuspid valve appears structurally normal. Mild tricuspid regurgitation present. There is n o evidence of pulmonary hypertension. Trace/mild (physiologic) pulmonic regurgitation. The aortic root size is normal. There is no pericardial effusion. CONCLUSIONS -------- 1. Sinus rhythm. 2. This was a technically good study. 3. The left ventricular size is normal. 4. There is moderate concentric left ventricular hypertrophy. 5. Overall left ventricular systolic function is normal with, an EF between 55 - 60 %. 6. The left atrium is normal in size. 7. There is mild aortic valve sclerosis. 8. The mitral valve leaflets are mildly thickened. 9. Mild mitral regurgitation is present. 10. The tricuspid valve appears structurally normal. 11. Mild tricuspid regurgitation present. 12. There is no evidence of pulmonary hypertension. 13. Trace/mild (physiologic) pulmonic regurgitation. 14. The aortic root size is normal. 15. There is no pericardial effusion. EXCHANGE SPECIALIST: Wilber Courtney
--- NOTE | 2018-09-28 15:13 | P.HPIM ---
History of Present Illness H&P Date: 09/28/18 This is 63-year-old female with history of hypertension, seizure disorder, hypothyroidism, fibromyalgia, anxiety, depression, bipolar and multiple other medical issues presented to the ER with complaints of generalized weakness, fatigue, nausea, diarrhea, chills, fever, dizziness, productive cough of 5 days- sputum color unknown,accompanied by burning chest pain, palpitations, exertional shortness of breath, runny nose. Reports she has been having palpitations over the last few weeks with med. adjustments as per cardiology. Influenza screen negative .chest x-ray nonacute, chronic paranchymal changes. EKG on admission reporting atrial fibrillation with RVR, and another EKG with sinus rhythm with first-degree AV block. Troponins negative 3. Magnesium 1.9.VSS. BNP 68. CBC, BMP remarkable. Echo pending. Review of Systems ROS Statement: Those systems with pertinent positive or pertinent negative responses have been documented in the HPI. ROS Other: All systems not noted in ROS Statement are negative. Past Medical History Past Medical History: Fibromyalgia, Hypertension, Neurologic Disorder, Osteoarthritis (OA), Seizure Disorder, Thyroid Disorder Additional Past Medical History / Comment(s): Migraines, past ETOH abuse but no alcohol past 22 yrs, seizure associated with alcohol withdrawal 22 yrs ago, small bowel ileus, RLS, arthritis multiple joints, hypothyroid. History of Any Multi-Drug Resistant Organisms: None Reported Past Surgical History: Bariatric Surgery, Bladder Surgery, Cholecystectomy, Orthopedic Surgery, Tubal Ligation Additional Past Surgical History / Comment(s): Gastric bypass, edmond fundloplasty then takedown which pt states involved her pancreas, pubovaginal sling, bilateral carpal tunnel releases, L knee ligament release, bilateral feet bunionectomy/reconstruction, several trigger fingers/toes, EGD with dilation, colonoscopy, spleenectomy. Past Anesthesia/Blood Transfusion Reactions: No Reported Reaction Smoking Status: Never smoker - Past Family History Brother(s) Family Medical History: Diabetes Mellitus Sister(s) Family Medical History: AICD/Pacemaker, Diabetes Mellitus Father Family Medical History: CVA/TIA, Myocardial Infarction ([place]) Mother Family Medical History: Cancer, Congestive Heart Failure (CHF) Additional Family Medical History / Comment(s): pulmonary edema. Mother of lung cancer and CHF. Medications and Allergies Home Medications Medication Instructions Recorded Confirmed Type LORazepam [Lorazepam] 1 mg PO QAM 05/04/14 09/27/18 History Levocetirizine Dihydrochloride 5 mg PO QAM PRN 02/07/15 09/27/18 History [Xyzal] Multivitamins, Thera [Multivitamin 1 tab PO DAILY 02/15/15 09/27/18 History (formulary)] Zolpidem [Ambien] 10 mg PO HS PRN 02/05/17 09/27/18 History Biotin 5 mg PO DAILY 01/15/18 09/27/18 History Cholecalciferol [Vitamin D3 (25 1,000 unit PO DAILY 01/15/18 09/27/18 History Mcg = 1000 Iu)] Ferrous Sulfate [Iron] 325 mg PO DAILY 01/15/18 09/27/18 History OXcarbazepine [Trileptal] 300 mg PO TID 01/15/18 09/27/18 History [place]-3 Fatty Acids/Fish Oil [Fish 1 cap PO DAILY 01/15/18 09/27/18 History Oil 1,000 mg Softgel] QUEtiapine [SEROquel] 300 mg PO HS PRN 01/15/18 09/27/18 History SUMAtriptan SUCCINATE [Imitrex] 50 mg PO DAILY PRN 01/15/18 09/27/18 History Levothyroxine Sodium [Synthroid] 75 mcg PO DAILY 08/22/18 09/27/18 History Promethazine [Phenergan] 12.5 mg PO Q8HR PRN 08/22/18 09/27/18 History Aspirin EC [Ecotrin Low Dose] 81 mg PO DAILY #30 tablet. 08/24/18 09/27/18 Rx LORazepam [Ativan] 2 mg PO HS 09/27/18 09/27/18 History Losartan [Cozaar] 25 mg PO HS 09/27/18 09/27/18 History amLODIPine [Norvasc] 5 mg PO HS 09/27/18 09/27/18 History Apixaban [Eliquis] 5 mg PO BID #60 tab 09/28/18 Rx Allergies Allergy/AdvReac Type Severity Reaction Status Date / Time codeine AdvReac Nausea Verified 09/27/18 09:32 trazodone AdvReac NIGHTMARES Verified 09/27/18 09:32 Physical Exam Vitals: Vital Signs Temp Pulse Pulse Resp BP BP Pulse Ox 09/28/18 07:12 88 09/28/18 06:56 84 09/28/18 03:17 85 17 09/28/18 03:16 99.8 F H 85 17 102/56 94 L 09/28/18 02:20 92 09/28/18 02:09 90 09/27/18 23:18 84 17 09/27/18 23:16 99.3 F 84 17 106/55 93 L 09/27/18 20:46 92 09/27/18 20:35 86 97 09/27/18 20:00 100.8 F H 89 20 107/57 95 09/27/18 18:05 100.3 F H 101 H 20 120/83 92 L 09/27/18 16:09 100 09/27/18 16:00 99.8 F H 96 88 18 101/69 93 L 09/27/18 14:13 91 119/70 97 09/27/18 12:14 93 16 123/78 95 09/27/18 12:10 93 20 123/78 94 L 09/27/18 12:00 98 16 128/81 09/27/18 11:50 98 20 128/81 98 09/27/18 11:40 95 23 128/81 96 09/27/18 11:30 95 33 H 128/81 09/27/18 11:20 96 23 94 L 09/27/18 11:10 93 23 128/81 93 L 09/27/18 11:00 92 20 128/69 09/27/18 10:50 129 H 16 128/69 95 09/27/18 10:40 128/69 95 09/27/18 10:30 122/75 09/27/18 10:20 122/75 100 09/27/18 10:19 100 09/27/18 10:11 92 09/27/18 10:10 122/75 95 09/27/18 10:00 115/76 09/27/18 09:50 115/76 93 L 09/27/18 09:40 115/76 94 L 09/27/18 09:30 123/71 09/27/18 09:20 123/71 94 L 09/27/18 09:10 123/71 96 06/18/19 09:00 108/67 09/27/18 08:53 24 09/27/18 08:51 108/67 93 L 09/27/18 08:36 99.6 F 95 18 126/74 95 Intake and Output 09/27/18 09/28/18 09/28/18 22:59 06:59 14:59 Intake Total 733 400 Balance 733 400 Intake: Oral 733 400 Other: Voiding Method Toilet Toilet # Voids 1 1 Weight 81.1 kg PHYSICAL EXAM: VITAL SIGNS: [As above] GENERAL: Sitting up in bed, no acute distress HEENT: Conjunctivae normal. eyes normal. Oral mucosa moist NECK: No JVD. No thyroid enlargement. No LNs CARDIOVASCULAR: S1, S2 regular.Systolic murmur RESPIRATION: Breath sounds diminished in the bases. Scattered rhonchi, no crackles. No bronchial breathing. ABDOMEN: Soft, nontender . No guarding. no masses palpable. No ascites, No hepatosplenomegaly.Bowel sounds heard. LEGS: No edema. no swelling PSYCHIATRY: Alert and oriented X3, mood and affect normal. NERVOUS SYSTEM: Cranial N 2-12 grossly normal. Moves all 4 limbs. Diffuse weakness No focal deficits. Strength and sensation grossly intact.. Skin: no lesions, no rash Joints: No active swelling. No inflammation. Lymphatic system. No LN neck axilla or groin. Results CBC & Chem 7: 09/28/18 06:09 09/28/18 06:09 Labs: Abnormal Lab Results - Last 24 Hours (Table) 09/27/18 Range/Units 10:50 Carbon Dioxide 21 L (22-30) mmol/L Glucose 111 H (74-99) mg/dL Thrombosis Risk Factor Assmnt - Choose All That Apply Any of the Below Risk Factors Present?: Yes Each Factor Represents 1 point: Obesity (BMI >25) Other Risk Factors: Yes Each Risk Factor Represents 2 Points: Age 61-74 years Other congenital or acquired thrombophilia - If yes, enter type in comment: No Thrombosis Risk Factor Assessment Total Risk Factor Score: 3 Thrombosis Risk Factor Assessment Level: Moderate Risk Assessment and Plan Assessment: -Paroxysmal A. flutter, A. fib, new onset, currently in sinus rhythm -Acute possible tracheobronchitis -Hypertension -Fibromyalgia -Osteoarthritis -Hypothyroidism -Seizure disorder -History of migraines -History of bariatric surgery -Anxiety -Bipolar, depression Plan: Continue on current medication regime ,monitoring and symptomatic treatment. Home meds have been reviewed and resumed. Empiric antibiotics added for potential tracheobronchitis/bronchitis.GI and DVT prophylaxis in place. Cardiology consulted with recommendations pending. Echo pending. Anticoagulation/antiarrhythmics as per cardiology. Further recommendations to follow. The impression and plan of care has been dictated as directed. : I performed a history and examination of this patient, discussed the same with the dictator. I agree with the dictator's note ,documented as a scribe. Any additional findings or plans will be noted. Time taken: 35 minutes
[2018-09-28] MEDS: ACETAMINOPHEN TAB 325 MG TAB PO PRN (15:19)
[2018-09-28] MEDS: METOPROLOL SUCCINATE (ER) 25 MG TAB.ER.24H PO SCH (15:31)
[2018-09-28] MEDS: SODIUM CHLORIDE 0.9% 1,000 ML IV SCH (17:42)
[2018-09-28] MEDS: LOSARTAN 25 MG TAB PO SCH (20:13)
[2018-09-28] MEDS: QUEtiapine 100 MG TAB PO PRN (22:33)
[2018-09-29] MEDS: IPRATROPIUM-ALBUTEROL 3 ML NEB INHALATION SCH ×5 (02:00→19:26)
[2018-09-29] MEDS: ACETAMINOPHEN TAB 325 MG TAB PO PRN ×2 (02:19→15:01)
[2018-09-29] MEDS: LEVOTHYROXINE 75 MCG TAB PO SCH (06:01)
[2018-09-29 06:24] LABS: Basophils % (A) 1 %; Eosinophils % (A) 1 %; HCT 37.8 % (34.0-46.0); HGB 12.2 gm/dL (11.4-16.0); Lymphocytes % (A) 25 %; MCH 29.4 pg (25.0-35.0); MCHC 32.4 g/dL (31.0-37.0); MCV 90.7 fL (80.0-100.0); Mean Platelet Volume 7.8; Monocytes # (A) 0.2 k/uL (0-1.0); Monocytes % (A) 5 %; Neutrophils # (A) 2.8 k/uL (1.3-7.7); Neutrophils % (A) 68 %; Platelet Count 218 k/uL (150-450); RBC 4.16 m/uL (3.80-5.40); RDW 14.2 % (11.5-15.5); WBC 4.2 k/uL (3.8-10.6)
[2018-09-29 06:36] LABS: African American GFR (CKD) >90 (>60 ml/min/1.73 sqM); Anion Gap 8 mmol/L; Blood Urea Nitrogen 13 mg/dL (7-17); Calcium 8.1 mg/dL (8.4-10.2); Carbon Dioxide 22 mmol/L (22-30); Chloride 102 mmol/L (98-107); Glucose 105 mg/dL (74-99); Potassium 3.8 mmol/L (3.5-5.1); Sodium 132 mmol/L (137-145)
[2018-09-29] MEDS: FERROUS SULFATE 325 MG TAB PO SCH (07:54)
[2018-09-29] MEDS: METOPROLOL SUCCINATE (ER) 25 MG TAB.ER.24H PO SCH (07:54)
[2018-09-29] MEDS: MULTIVITAMINS, THERA 1 EACH TAB PO SCH (07:54)
[2018-09-29] MEDS: guaiFENesin 600 MG TABLET.ER PO SCH ×3 (07:54→22:06)
[2018-09-29] MEDS: CHOLECALCIFEROL 1,000 UNIT TAB PO SCH (07:54)
[2018-09-29] MEDS: LORazepam 1 MG TAB PO SCH ×2 (07:54→22:03)
[2018-09-29] MEDS: APIXABAN 5 MG TAB PO SCH ×2 (07:54→22:03)
[2018-09-29] MEDS: ASPIRIN 81 MG PO SCH (07:54)
[2018-09-29] MEDS: OXcarbazepine 300 MG TAB PO SCH ×3 (07:55→22:07)
[2018-09-29] MEDS ORDERED: IPRATROPIUM-ALBUTEROL 3 ML NEB INHALATION PRN (09:05)
[2018-09-29] MEDS: AZITHROMYCIN 500 MG in SODIUM CHLORIDE 0.9% 250 ML IVPB SCH (11:16)
[2018-09-29 12:27] LABS: Appearance,Urine Clear (Clear); Bilirubin,Urine Negative (Negative); Blood,Urine Negative (Negative); Color,Urine Yellow; Glucose,Urine (UA) Negative (Negative); Ketones,Urine Negative (Negative); Leukocyte Esterase,Urine Trace (Negative); Mucus,Urine Few /hpf; Nitrite,Urine Negative (Negative); PH, Urine 5.5 (5.0-8.0); Protein,Urine Negative (Negative); RBC,Urine 1 /hpf (0-5); Specific Gravity,Urine 1.015 (1.001-1.035); Urobilinogen,Urine <2.0 mg/dL (<2.0)
[2018-09-29] MEDS: NYSTATIN 100,000 UNIT/ML SUSP 500,000 UNIT/5 ML CUP PO SCH ×3 (13:34→22:07)
[2018-09-29] MEDS: SODIUM CHLORIDE 0.9% 1,000 ML IV SCH ×2 (13:36→17:01)
--- NOTE | 2018-09-29 13:57 | P.PN ---
Subjective Progress Note Date: 09/29/18 This is 63-year-old female with history of hypertension, seizure disorder, hypothyroidism, fibromyalgia, anxiety, depression, bipolar and multiple other medical issues presented to the ER with complaints of generalized weakness, fatigue, nausea, diarrhea, chills, fever, dizziness, productive cough of 5 days- sputum color unknown,accompanied by burning chest pain, palpitations, exertional shortness of breath, runny nose. Reports she has been having palpitations over the last few weeks with med. adjustments as per cardiology. Influenza screen negative .chest x-ray nonacute, chronic paranchymal changes. EKG on admission reporting atrial fibrillation with RVR, and another EKG with sinus rhythm with first-degree AV block. Troponins negative 3. Magnesium 1.9.VSS. BNP 68. CBC, BMP remarkable. Echo pending. 09/29/18 Tmax 101.7,WBC normal, Requiring 2L NC O2 to maintain O2 sat of low 90's(yesterday on room air). Nonproductive loose cough.preliminary blood cultures negative at 48 hours. Echo reporting moderate concentric left ventricular hypertrophy with normal LV function, EF 55-60%. Telemetry sinus rhythm with PACs Objective - Vital Signs Vital signs: Vital Signs Temp 98.5 F 09/29/18 08:00 Pulse 76 09/29/18 08:25 Resp 20 09/29/18 08:05 BP 103/58 09/29/18 08:00 Pulse Ox 93 L 09/29/18 08:05 Intake & Output 09/28/18 09/29/18 09/29/18 18:59 06:59 18:59 Intake Total 9543.906 3346 250 Balance 3568.405 7523 250 Weight 81.6 kg Intake: IV 10 Invasive Line 3 10 Intake, IV Titration 104.333 Amount Diltiazem 125 mg In 104.333 Sodium Chloride 0.9% 100 ml @ 5 MG/HR 5 mls/hr IV .Q24H REANNA Rx#:[id number] Oral 960 1200 240 Other: Voiding Method Toilet # Voids 1 2 - Exam VITAL SIGNS: [As above] GENERAL: Sitting up in bed, no acute distress HEENT: Conjunctivae normal. eyes normal. Oral mucosa moist NECK: No JVD. No thyroid enlargement. No LNs CARDIOVASCULAR: S1, S2 regular.Systolic murmur RESPIRATION: Breath sounds coarse, diminished in the bases. Scattered rhonchi, no crackles. Expiratory wheezing. ABDOMEN: Soft, nontender . No guarding. no masses palpable. Positive bowel sounds heard. LEGS: No edema. no swelling PSYCHIATRY: Alert and oriented X3, mood and affect normal. NERVOUS SYSTEM: Cranial N 2-12 grossly normal. Moves all 4 limbs. Diffuse weakness, No focal deficits. Strength and sensation grossly intact. Skin: no lesions, no rash - Labs CBC & Chem 7: 09/29/18 05:50 09/29/18 05:50 Labs: Abnormal Lab Results - Last 24 Hours (Table) 09/29/18 Range/Units 05:50 Sodium 132 L (137-145) mmol/L Glucose 105 H (74-99) mg/dL Calcium 8.1 L (8.4-10.2) mg/dL Microbiology - Last 24 Hours (Table) 09/27/18 10:48 Blood Culture - Preliminary Blood No Growth after 24 hours Assessment and Plan Assessment: -Paroxysmal A. flutter, A. fib, new onset, currently in sinus rhythm -Acute possible tracheobronchitis -Hypertension -Fibromyalgia -Osteoarthritis -Hypothyroidism -Seizure disorder -History of migraines -History of bariatric surgery -Anxiety -Bipolar, depression Plan: Continue on current medication regime ,monitoring and symptomatic treatment. Fever work-up in progress. Pancultured. Continue on Rocephin with Zithromax added to antibitoic regmine.Mucinex ordered .chest x-ray ordered /pending. GI and DVT prophylaxis in place. Anticoagulated with Eliquis as per cardiology. Pulmonary consulted. The impression and plan of care has been dictated as directed. : I performed a history and examination of this patient, discussed the same with the dictator. I agree with the dictator's note ,documented as a scribe. Any additional findings or plans will be noted. Time taken: 35 minutes
--- NOTE | 2018-09-29 14:25 | XR ---
EXAMINATION TYPE: XR chest 2V DATE OF EXAM: 09/29/2018 COMPARISON: Prior chest x-ray 09/27/2018 HISTORY: Abnormal chest x-ray, fever TECHNIQUE: Frontal and lateral views of the chest are obtained. FINDINGS: Some patchy density is present at the right lung base, right hemidiaphragm remains elevate d. No evident pneumothorax. Heart is stable. Prominent underlying lung volumes suggests underlying CO PD. There are overlying cardiac leads. IMPRESSION: Correlate for right lower lobe pneumonia. Follow-up recommended.
--- NOTE | 2018-09-29 14:50 | P.PN ---
Subjective Progress Note Date: 09/29/18 This is a pleasant 63-year-old female who follows regularly with Dr. Parmar in the office. She has past medical history significant for bipolar disorder, seizure disorder, hypothyroidism, uncontrolled hypertension and former alcohol abuse. Patient did undergo a stress echocardiographic study in January 2018 that was unremarkable for any ischemic changes. She presented to the hospital on this occasion with symptoms of progressively worsening shortness of breath with associated cough, she was also running a mild fever at home as well as on arrival here. Her EKG on presentation here showed atrial flutter with a rapid ventricular response. This morning patient is currently in a normal sinus rhythm. Chest x-ray shows chronic changes without suspicious acute pulmonary process. Blood pressure on arrival here 126/70 with a heart rate in the 90s, temperature 99.6, 95% on room air. White blood cell count 4.2, hemoglobin 12.6, platelet count 227. Sodium 137, potassium 4.3, BUN 13 and creatinine 0.6. Magnesium 1.9. Troponins negative 3. BNP level 68. Influenza A and B-. 09/29/2018 Patient was seen and examined this morning, denies any chest discomfort. Continues to have mild wheezing and cough. Echocardiogram with Doppler study was performed which revealed an ejection fraction of 55-60%. Blood pressure 96 over a heart rate in the 60s to 70s, 94% on 2 L of oxygen. White blood cell count 4.2, hemoglobin 12.2, platelet count 28. Sodium 132, potassium 3.8, BUN 13 and creatinine 0.6. Objective - Vital Signs Vital signs: Vital Signs Temp 98.5 F 09/29/18 11:50 Pulse 72 09/29/18 12:06 Resp 16 09/29/18 11:52 BP 96/60 09/29/18 11:50 Pulse Ox 94 L 09/29/18 11:50 Intake & Output 09/28/18 09/29/18 09/29/18 18:59 06:59 18:59 Intake Total 2817.008 2575 1542 Balance 9340.375 5564 1542 Weight 81.6 kg Intake: IV 480 Azithromycin 500 mg In 250 Sodium Chloride 0.9% 250 ml @ 250 mls/hr IVPB DAILY [facility] Rx#:[id number] Invasive Line 3 20 Sodium Chloride 0.9% 1, 160 000 ml @ 20 mls/hr IV . Q24H [facility] Rx#:[id number] cefTRIAXone 1 gm In 50 Sodium Chloride 0.9% 50 ml @ 100 mls/hr IVPB Q24HR [facility] Rx#:[id number] Intake, IV Titration 104.333 Amount Diltiazem 125 mg In 104.333 Sodium Chloride 0.9% 100 ml @ 5 MG/HR 5 mls/hr IV .Q24H [facility] Rx#:[id number] Oral 960 1200 1062 Other: Voiding Method Toilet Toilet # Voids 1 2 - Exam PHYSICAL EXAMINATION: GENERAL: 63-year-old female in no acute distress at the time of my examination HEENT: Head is atraumatic, normocephalic. Pupils equal, round. Sclera anicteric. Conjunctiva are clear. Mucous membranes of the mouth are moist. Neck is supple. There is no elevated jugular venous pressure. No carotid bruit is heard. HEART EXAMINATION: Heart S1-S2 with systolic murmur is heard CHEST EXAMINATION: Lungs reveal coarse scattered rhonchi throughout that clear with cough. ABDOMEN: Soft, nontender. Bowel sounds are heard. No organomegaly noted. EXTREMITIES: 2+ peripheral pulses with no evidence of peripheral edema and no calf tenderness noted. NEUROLOGIC patient is awake, alert and oriented 3 . - Labs CBC & Chem 7: 09/29/18 05:50 09/29/18 05:50 Labs: Abnormal Lab Results - Last 24 Hours (Table) 09/29/18 09/29/18 Range/Units 05:50 10:29 Sodium 132 L (137-145) mmol/L Glucose 105 H (74-99) mg/dL Calcium 8.1 L (8.4-10.2) mg/dL Ur Leukocyte Esterase Trace H (Negative) Urine WBC 6 H (0-5) /hpf Urine Mucus Few H (None) /hpf Microbiology - Last 24 Hours (Table) 09/27/18 10:48 Blood Culture - Preliminary Blood No Growth after 48 hours Assessment and Plan Plan: Assessment and plan #1 symptoms of shortness of breath with associated cough and fever suggestive possible tracheobronchitis #2 atrial flutter, atypical, be of new onset, currently in normal sinus rhythm. #3 hypertension #4 history of seizure disorder #5 hypothyroidism #6 bipolar disorder #7 history of alcohol abuse Plan From cardiology's perspective, patient may be able to be discharged home once cleared by primary. We will follow her now on an as-needed basis only please don't hesitate to call with any questions. DNP note has been reviewed, I agree with a documented findings and plan of care. Patient was seen and examined.
--- NOTE | 2018-09-29 16:06 | CT ---
EXAMINATION TYPE: CT chest wo con DATE OF EXAM: 09/29/2018 COMPARISON: 04/10/2015 HISTORY: COUGH AND FEVER CT DLP: 265.7 mGycm. Automated Exposure Control for Dose Reduction was Utilized. TECHNIQUE: CT scan of the thorax is performed without IV contrast. FINDINGS: Exam severely limited due to motion artifact. LUNGS: Large area of consolidation involving the right perihilar and lower lobe. Subsegmental consoli dation on the left also noted. Tiny right pleural effusion noted. There is a 5 mm nodule in the right upper lobe. No pneumothorax. No overt failure. MEDIASTINUM: Lack of IV contrast is noted to limit evaluation for mediastinal and especially hilar ad enopathy. There are no definitive greater than 1 cm hilar or mediastinal lymph nodes. Heart is mildly prominent. No sizable pericardial effusion. Coronary artery calcification noted.. OTHER: There is a mass within the left lobe of the liver measuring 3 Hounsfield units and 2.3 cm comp atible with hepatic cyst. Previous gallbladder surgery noted. Question previous surgical change or ca lcification in the left upper quadrant of the abdomen.. Hypertrophic degenerative change of the verte bral column. IMPRESSION: IMPRESSION: 1. Large area of patchy right perihilar and lower lobe infiltrate correlate for pneumonia. Follow-up to resolution recommended to exclude underlying hilar lesion or mass. 2. There is a 5 mm right upper lobe pulmonary nodule. Six-month follow-up is recommended to assess fo r stability. 3. Hepatic cyst with suspected postsurgical changes involving the abdomen. 4. Coronary artery calcification. 5. Left basilar subsegmental consolidation for which atelectasis is favored.
--- NOTE | 2018-09-29 16:29 | P.CNPUL ---
History of Present Illness Consult date: 09/29/18 Reason for consult: dyspnea, cough Chief complaint: Weakness fatigue and fever History of present illness: This is a 63-year-old female with history of multiple medical problems including hypertension, fibromyalgia, seizure disorder, hypothyroidism, patient was admitted mostly with a few days' history of generalized weakness, fatigue, nausea, diarrhea, chills, and occasional productive cough with yellow sputum. Initial chest x-ray on admission showed no evidence of active disease, however follow-up chest x-ray questioned right lower lobe infiltrate. Patient was admitted, placed on antibiotics in the form of Rocephin and Zithromax, I was asked to see her on consultation for her pulmonary symptoms. Patient was seen by cardiology on consultation, mostly because of on admission EKG showed atrial fibrillation with RVR, troponins were negative 3. Her cardiac panel was all normal. And her echocardiogram was normal. I did review the chest x-ray myself, there is questionable infiltrate in the right lower lobe, on physical examination she had significant rales and crackles and wheezes bilaterally, hence a high-resolution CT of the chest was ordered. In the meantime the patient was kept on antibiotics, bronchodilators, and I added Solu-Medrol for her reactive bronchospasm. Review of Systems Constitutional: Fever and chills, no weight loss.. Complaining of generalized weakness. HEENT: Denies sore throat, denies any earache, denies any diplopia. Denies any dizziness but Cardiac: Denies chest pain, amputations, denies syncope. Respiratory: As noted in HPI, mostly cough, wheezing, cough is productive with yellow phlegm. Gastrointestinal: Intermittent episodes of nausea vomiting and diarrhea. Genitourinary: Denies dysuria frequency urgency hematuria Musculoskeletal: Chronic symptoms of fibromyalgia with aches and pains. Neurologic: Denies headaches blurred vision dizziness syncope. Endocrine: Denies heat or cold intolerance, denies any symptoms to suggest a ctive diabetes. Skin: Denies any rashes or pruritus. Psychiatric: Denies any symptoms of active depression. Hematologic: Denies any clotting bleeding or bruising. Past Medical History Past Medical History: Fibromyalgia, Hypertension, Neurologic Disorder, Osteoarthritis (OA), Seizure Disorder, Thyroid Disorder Additional Past Medical History / Comment(s): Migraines, past ETOH abuse but no alcohol past 22 yrs, seizure associated with alcohol withdrawal 22 yrs ago, small bowel ileus, RLS, arthritis multiple joints, hypothyroid. History of Any Multi-Drug Resistant Organisms: None Reported Past Surgical History: Bariatric Surgery, Bladder Surgery, Cholecystectomy, Ort hopedic Surgery, Tubal Ligation Additional Past Surgical History / Comment(s): Gastric bypass, edmond fundloplasty then takedown which pt states involved her pancreas, pubovaginal sling, bilateral carpal tunnel releases, L knee ligament release, bilateral feet bunionectomy/reconstruction, several trigger fingers/toes, EGD with dilation, colonoscopy, spleenectomy. Past Anesthesia/Blood Transfusion Reactions: No Reported Reaction Smoking Status: Never smoker - Past Family History Brother(s) Family Medical History: Diabetes Mellitus Sister(s) Family Medical History: AICD/Pacemaker, Diabetes Mellitus Father Family Medical History: CVA/TIA, Myocardial Infarction (PA) Mother Family Medical History: Cancer, Congestive Heart Failure (CHF) Additional Family Medical History / Comment(s): pulmonary edema. Mother of lung cancer and CHF. Medications and Allergies Home Medications Medication Instructions Recorded Confirmed Type LORazepam [Lorazepam] 1 mg PO QAM 05/04/14 09/27/18 History Levocetirizine Dihydrochloride 5 mg PO QAM PRN 02/07/15 09/27/18 History [Xyzal] Multivitamins, Thera [Multivitamin 1 tab PO DAILY 02/15/15 09/27/18 History (formulary)] Zolpidem [Ambien] 10 mg PO HS PRN 02/05/17 09/27/18 History Biotin 5 mg PO DAILY 01/15/18 09/27/18 History Cholecalciferol [Vitamin D3 (25 1,000 unit PO DAILY 01/15/18 09/27/18 History Mcg = 1000 Iu)] Ferrous Sulfate [Iron] 325 mg PO DAILY 01/15/18 09/27/18 History OXcarbazepine [Trileptal] 300 mg PO TID 01/15/18 09/27/18 History [place]-3 Fatty Acids/Fish Oil [Fish 1 cap PO DAILY 01/15/18 09/27/18 History Oil 1,000 mg Softgel] QUEtiapine [SEROquel] 300 mg PO HS PRN 01/15/18 09/27/18 History SUMAtriptan SUCCINATE [Imitrex] 50 mg PO DAILY PRN 01/15/18 09/27/18 History Levothyroxine Sodium [Synthroid] 75 mcg PO DAILY 08/22/18 09/27/18 History Promethazine [Phenergan] 12.5 mg PO Q8HR PRN 08/22/18 09/27/18 History Aspirin EC [Ecotrin Low Dose] 81 mg PO DAILY #30 tablet. 08/24/18 09/27/18 Rx LORazepam [Ativan] 2 mg PO HS 09/27/18 09/27/18 History Losartan [Cozaar] 25 mg PO HS 09/27/18 09/27/18 History amLODIPine [Norvasc] 5 mg PO HS 09/27/18 09/27/18 History Apixaban [Eliquis] 5 mg PO BID #60 tab 09/28/18 Rx Allergies Allergy/AdvReac Type Severity Reaction Status Date / Time codeine AdvReac Nausea Verified 09/27/18 09:32 trazodone AdvReac NIGHTMARES Verified 09/27/18 09:32 Physical Exam Vitals: Vital Signs Temp Pulse Pulse Resp BP Pulse Ox 09/29/18 15:43 72 09/29/18 15:33 74 18 94 L 09/29/18 15:14 74 16 09/29/18 15:00 99.4 F 74 16 93/46 93 L 09/29/18 12:06 72 09/29/18 11:54 72 09/29/18 11:52 66 16 09/29/18 11:50 98.5 F 66 16 96/60 94 L 09/29/18 08:36 72 09/29/18 08:25 76 09/29/18 08:05 20 93 L 09/29/18 08:00 98.5 F 80 20 103/58 88 L 09/29/18 03:53 85 19 09/29/18 03:52 101.4 F H 85 19 110/59 92 L 09/29/18 02:10 86 09/29/18 02:01 84 09/28/18 23:46 89 19 09/28/18 23:44 101 F H 89 19 139/53 92 L 09/28/18 20:00 101.7 F H 94 19 103/55 93 L 09/28/18 19:37 86 09/28/18 19:28 82 Intake and Output 09/29/18 09/29/18 09/29/18 06:59 14:59 22:59 Intake Total 800 1542 Balance 800 1542 Intake: IV 480 Azithromycin 500 mg In 250 Sodium Chloride 0.9% 250 ml @ 250 mls/hr IVPB DAILY [facility] Rx#:[id number] Invasive Line 3 20 Sodium Chloride 0.9% 1, 160 000 ml @ 20 mls/hr IV . Q24H [facility] Rx#:[id number] cefTRIAXone 1 gm In 50 Sodium Chloride 0.9% 50 ml @ 100 mls/hr IVPB Q24HR [facility] Rx#:[id number] Oral 800 1062 Other: Voiding Method Toilet Toilet Toilet # Voids 2 Weight 81.6 kg Physical Exam: Revealed a 63-year-old female in no distress. Head: Atraumatic normocephalic. HEENT:[Neck is supple.] [No neck masses.] [No thyromegaly.] [No JVD.] PERRLA, EOMI, no icterus. Chest: Crackles and rhonchi and wheezes noted bilaterally more so at the right base. Symmetrical chest expansion, no chest wall tenderness..] Cardiac Exam: [Normal S1 and S2, no S3 gallop, no murmur.] Abdomen: [Soft, nontender, no megaly, no rebound, no guarding, normal bowel sounds.] Extremities: [No clubbing, no edema, no cyanosis.] Neurological Exam: [No focal neurologic deficit.] Alert and oriented 3. Skin: No rashes, no erythema. No lesions. Lymphatics: No lymphadenopathy. Musculoskeletal no limitation in range of motion, no deformities. Muscle strength equal bilaterally Psychiatric: Normal mood affect and mental status examination. Results - Laboratory Findings CBC and BMP: 09/29/18 05:50 09/29/18 05:50 PT/INR, D-dimer PT 9.4 sec (9.0-12.0) 09/27/18 10:50 INR 0.8 (<1.2) 09/27/18 10:50 Abnormal lab findings: Abnormal Labs 09/27/18 09/29/18 09/29/18 10:50 05:50 10:29 Sodium 132 L Carbon Dioxide 21 L Glucose 111 H 105 H Calcium 8.1 L Ur Leukocyte Esterase Trace H Urine WBC 6 H Urine Mucus Few H - Diagnostic Findings Chest x-ray: image reviewed (Questionable right lower lobe infiltrate however her admission chest x-ray was basically normal.) Assessment and Plan Assessment: Impression: 1 acute community-acquired right lower lobe pneumonia, with reactive bronch ospasm. Patient had no previous history of asthma and no previous history of COPD, nonsmoker. Paroxysmal atrial fibrillation, presently in sinus rhythm, addressed by cardiology. Multiple comorbidities including hypertension, fibromyalgia, osteoarthritis, hypothyroidism, seizure disorder, migraine cephalgia, bipolar disorder, and generalized anxiety disorder. Recommendation: Agree with the present course of antibiotics treatment, agree with DuoNeb updrafts 4 times a day and when necessary, added Solu-Medrol for her reactive bronchospasm, ordered a high-resolution CT of the chest to be done today, and based on the CT findings further recommendations to follow. The findings on physical examination are more significant than noted on the chest x- ray findings. We'll continue to follow. Time with Patient: Greater than 30
[2018-09-29] MEDS: methylPREDNISolone SOD SUCCI 40 MG/ML 1 ML VIAL IV SCH ×2 (16:59→23:45)
[2018-09-29] MEDS ORDERED: ZOLPIDEM 5 MG TAB PO SCH (21:00)
[2018-09-29] MEDS: LOSARTAN 25 MG TAB PO SCH (22:03)
[2018-09-30 06:09] LABS: Basophils % (A) 0 %; Eosinophils % (A) 0 %; HCT 41.6 % (34.0-46.0); HGB 13.5 gm/dL (11.4-16.0); Lymphocytes % (A) 31 %; MCH 29.2 pg (25.0-35.0); MCHC 32.5 g/dL (31.0-37.0); MCV 89.8 fL (80.0-100.0); Mean Platelet Volume 7.9; Monocytes # (A) 0.1 k/uL (0-1.0); Monocytes % (A) 3 %; Neutrophils # (A) 2.1 k/uL (1.3-7.7); Neutrophils % (A) 64 %; Platelet Count 239 k/uL (150-450); RBC 4.63 m/uL (3.80-5.40); WBC 3.3 k/uL (3.8-10.6)
[2018-09-30 06:17] LABS: African American GFR (CKD) >90 (>60 ml/min/1.73 sqM); Anion Gap 10 mmol/L; Blood Urea Nitrogen 11 mg/dL (7-17); Carbon Dioxide 24 mmol/L (22-30); Chloride 106 mmol/L (98-107); Glucose 125 mg/dL (74-99); Potassium 4.5 mmol/L (3.5-5.1); Sodium 140 mmol/L (137-145)
[2018-09-30] MEDS: LEVOTHYROXINE 75 MCG TAB PO SCH (06:26)
[2018-09-30] MEDS: IPRATROPIUM-ALBUTEROL 3 ML NEB INHALATION SCH ×4 (07:47→20:31)
[2018-09-30] MEDS: ASPIRIN 81 MG PO SCH (08:14)
[2018-09-30] MEDS: CHOLECALCIFEROL 1,000 UNIT TAB PO SCH (08:14)
[2018-09-30] MEDS: LORazepam 1 MG TAB PO SCH ×2 (08:14→20:34)
[2018-09-30] MEDS: NYSTATIN 100,000 UNIT/ML SUSP 500,000 UNIT/5 ML CUP PO SCH ×4 (08:14→20:35)
[2018-09-30] MEDS: MULTIVITAMINS, THERA 1 EACH TAB PO SCH (08:14)
[2018-09-30] MEDS: METOPROLOL SUCCINATE (ER) 25 MG TAB.ER.24H PO SCH (08:14)
[2018-09-30] MEDS: methylPREDNISolone SOD SUCCI 40 MG/ML 1 ML VIAL IV SCH ×4 (08:15→23:14)
[2018-09-30] MEDS: APIXABAN 5 MG TAB PO SCH ×2 (08:15→20:35)
[2018-09-30] MEDS: OXcarbazepine 300 MG TAB PO SCH ×3 (08:15→21:03)
[2018-09-30] MEDS: FERROUS SULFATE 325 MG TAB PO SCH (08:15)
[2018-09-30] MEDS: guaiFENesin 600 MG TABLET.ER PO SCH ×2 (08:21→20:34)
[2018-09-30] MEDS: AZITHROMYCIN 500 MG in SODIUM CHLORIDE 0.9% 250 ML IVPB SCH (10:43)
--- NOTE | 2018-09-30 12:23 | P.PN ---
Subjective Progress Note Date: 09/30/18 This is 63-year-old female with history of hypertension, seizure disorder, hypothyroidism, fibromyalgia, anxiety, depression, bipolar and multiple other medical issues presented to the ER with complaints of generalized weakness, fatigue, nausea, diarrhea, chills, fever, dizziness, productive cough of 5 days- sputum color unknown,accompanied by burning chest pain, palpitations, exertional shortness of breath, runny nose. Reports she has been having palpitations over the last few weeks with med. adjustments as per cardiology. Influenza screen negative .chest x-ray nonacute, chronic paranchymal changes. EKG on admission reporting atrial fibrillation with RVR, and another EKG with sinus rhythm with first-degree AV block. Troponins negative 3. Magnesium 1.9.VSS. BNP 68. CBC, BMP remarkable. Echo pending. 09/29/18 Tmax 101.7,WBC normal, Requiring 2L NC O2 to maintain O2 sat of low 90's(yesterday on room air). Nonproductive loose cough.preliminary blood cultures negative at 48 hours. Echo reporting moderate concentric left ventricular hypertrophy with normal LV function, EF 55-60%. Telemetry sinus rhythm with PACs 09/30/2018 this day follow-up chest x-ray reporting right lower lobe infiltrate, Zithromax added in addition to Rocephin. Evaluated by pulmonary with IV steroids initiated. Chest CT reporting large right opacity with left basilar atelectasis, right upper lobe nodule-patient states is not new, possible 5mm hepatic cyst of the left lobe.Breathing improving. Maintaining O2 sats in the low 90s on 2 L nasal cannula, 88% on room air. T-max 99.7, WBC within normal limits. Telemetry sinus rhythm Objective - Vital Signs Vital signs: Vital Signs Temp 98.1 F 09/30/18 08:00 Pulse 85 09/30/18 08:00 Resp 18 09/30/18 08:00 BP 116/59 09/30/18 08:00 Pulse Ox 92 L 09/30/18 08:00 Intake & Output 09/29/18 09/30/18 09/30/18 18:59 06:59 18:59 Intake Total 1764 120 232 Balance 1764 120 232 Weight 81.3 kg Intake: IV 480 10 Azithromycin 500 mg In 250 Sodium Chloride 0.9% 250 ml @ 250 mls/hr IVPB DAILY [facility] Rx#:[id number] Invasive Line 3 20 10 Sodium Chloride 0.9% 1, 160 000 ml @ 20 mls/hr IV . Q24H [facility] Rx#:[id number] cefTRIAXone 1 gm In 50 Sodium Chloride 0.9% 50 ml @ 100 mls/hr IVPB Q24HR [facility] Rx#:[id number] Oral 1284 120 222 Other: Voiding Method Toilet Toilet Toilet # Voids 1 - Exam VITAL SIGNS: [As above] GENERAL: Sitting up in bed, no acute distress HEENT: Conjunctivae normal. eyes normal. Oral mucosa moist NECK: No JVD. No thyroid enlargement. No LNs CARDIOVASCULAR: S1, S2 regular.Systolic murmur RESPIRATION: Breath sounds coarse, diminished in the bases. Scattered rhonchi, right basilar crackles. Occasional fine Expiratory wheezing. ABDOMEN: Soft, nontender . No guarding. no masses palpable. Positive bowel sounds heard. LEGS: No edema. no swelling PSYCHIATRY: Alert and oriented X3, mood and affect normal. NERVOUS SYSTEM: Cranial N 2-12 grossly normal. Moves all 4 limbs. Diffuse weakness, No focal deficits. Strength and sensation grossly intact. Skin: no lesions, no rash Microbiology 09/29/18 09:38 Blood Blood Culture - Preliminary No Growth after 24 hours 09/29/18 09:11 Blood Blood Culture - Preliminary No Growth after 24 hours 09/27/18 10:48 Blood Blood Culture - Preliminary No Growth after 48 hours - Labs CBC & Chem 7: 09/30/18 05:36 09/30/18 05:36 Labs: Abnormal Lab Results - Last 24 Hours (Table) 09/29/18 09/30/18 09/30/18 Range/Units 10:29 05:36 05:36 WBC 3.3 L (3.8-10.6) k/uL Glucose 125 H (74-99) mg/dL Ur Leukocyte Esterase Trace H (Negative) Urine WBC 6 H (0-5) /hpf Urine Mucus Few H (None) /hpf Microbiology - Last 24 Hours (Table) 09/29/18 09:38 Blood Culture - Preliminary Blood No Growth after 24 hours 09/29/18 09:11 Blood Culture - Preliminary Blood No Growth after 24 hours 09/27/18 10:48 Blood Culture - Preliminary Blood No Growth after 48 hours Assessment and Plan Assessment: -Paroxysmal A. flutter, A. fib, new onset, currently in sinus rhythm -Acute right lower lobe pneumonia, community-acquired with possible acute tracheobronchitis -Hypertension -Fibromyalgia -Osteoarthritis -Hypothyroidism -Seizure disorder -History of migraines -History of bariatric surgery -Anxiety -Bipolar, depression Plan: Continue on current medication regime ,monitoring and symptomatic treatment. Cultures pending. Maintain Rocephin, Zithromax, IV steroids, Mucinex. Still has nonproductive cough, sputum culture not yet collected . Anticoagulated with Eliquis. Increase ambulation as tolerated. Further recommendations to follow. The impression and plan of care has been dictated as directed. : I performed a history and examination of this patient, discussed the same with the dictator. I agree with the dictator's note ,documented as a scribe. Any additional findings or plans will be noted. Time taken: 35 minutes
--- NOTE | 2018-09-30 15:11 | P.PN ---
Subjective Progress Note Date: 09/30/18 Principal diagnosis: Acute hypoxic respiratory failure secondary to an acute right lower lobe community-acquired pneumonia. This is a 63-year-old female with history of multiple medical problems including hypertension, fibromyalgia, seizure disorder, hypothyroidism, patient was admitted mostly with a few days' history of generalized weakness, fatigue, nausea, diarrhea, chills, and occasional productive cough with yellow sputum. Initial chest x-ray on admission showed no evidence of active disease, however follow-up chest x-ray questioned right lower lobe infiltrate. Patient was admitted, placed on antibiotics in the form of Rocephin and Zithromax, I was asked to see her on consultation for her pulmonary symptoms. Patient was seen by cardiology on consultation, mostly because of on admission EKG showed atrial fibrillation with RVR, troponins were negative 3. Her cardiac panel was all normal. And her echocardiogram was normal. I did review the chest x-ray myse lf, there is questionable infiltrate in the right lower lobe, on physical examination she had significant rales and crackles and wheezes bilaterally, hence a high-resolution CT of the chest was ordered. In the meantime the patient was kept on antibiotics, bronchodilators, and I added Solu-Medrol for her reactive bronchospasm. The patient is seen today 09/30/2018 in follow-up on the selective care unit. She is awake and alert in no acute distress. She is up ambulating in the room. She is improved today compared to yesterday but not quite back to her baseline. Still somewhat bronchospastic and wheezy. Still with a loose nonproductive cough. Maintaining O2 saturations in the low 90s on 2 L/m per nasal cannula. She's afebrile. Hemodynamically stable. Blood culture reveals no growth. White count 3.3. Hemoglobin 1213.5. Creatinine 0.60. Maintained on DuoNeb inhalations, ceftriaxone and azithromycin, IV Solu-Medrol. Objective - Vital Signs Vital signs: Vital Signs Temp 97.6 F 09/30/18 12:00 Pulse 72 09/30/18 12:45 Resp 18 09/30/18 12:00 BP 111/58 09/30/18 12:00 Pulse Ox 93 L 09/30/18 12:00 Intake & Output 09/29/18 09/30/18 09/30/18 18:59 06:59 18:59 Intake Total 1764 120 722 Balance 1764 120 722 Weight 81.3 kg Intake: IV 480 20 Azithromycin 500 mg In 250 Sodium Chloride 0.9% 250 ml @ 250 mls/hr IVPB DAILY REANNA Rx#:[id number] Invasive Line 3 20 20 Sodium Chloride 0.9% 1, 160 000 ml @ 20 mls/hr IV . Q24H REANNA Rx#:[id number] cefTRIAXone 1 gm In 50 Sodium Chloride 0.9% 50 ml @ 100 mls/hr IVPB Q24HR REANNA Rx#:[id number] Oral 1284 120 702 Other: Voiding Method Toilet Toilet Toilet # Voids 1 - Exam GENERAL EXAM: Very pleasant 63-year-old female patient. Alert, active, comfortable in no apparent distress. On 2 L nasal cannula. HEAD: Normocephalic. EYES: Normal reaction of pupils, equal size. NOSE: Clear with pink turbinates. THROAT: No erythema or exudates. NECK: No masses, no JVD. CHEST: No chest wall deformity. LUNGS: Equal air entry with bilateral end expiratory wheeze, crackles in the right posterior base. CVS: S1 and S2 normal with no audible murmur, regular rhythm. ABDOMEN: No hepatosplenomegaly, normal bowel sounds, no guarding or rigidity. SPINE: No scoliosis or deformity SKIN: No rashes CENTRAL NERVOUS SYSTEM: No focal deficits, tone is normal in all 4 extremities. EXTREMITIES: There is no peripheral edema. No clubbing, no cyanosis. Peripheral pulses are intact. - Labs CBC & Chem 7: 09/30/18 05:36 09/30/18 05:36 Labs: Abnormal Lab Results - Last 24 Hours (Table) 09/30/18 09/30/18 Range/Units 05:36 05:36 WBC 3.3 L (3.8-10.6) k/uL Glucose 125 H (74-99) mg/dL Microbiology - Last 24 Hours (Table) 09/27/18 10:48 Blood Culture - Preliminary Blood No Growth after 72 hours 09/29/18 09:38 Blood Culture - Preliminary Blood No Growth after 24 hours 09/29/18 09:11 Blood Culture - Preliminary Blood No Growth after 24 hours Assessment and Plan Assessment: Impression: #1 Acute hypoxic respiratory failure secondary to an acute community-acquired right lower lobe pneumonia. #2 Fibromyalgia. #3 Remote history of alcohol abuse. #4 Hypertension. #5 History of migraines. #6 Hypothyroidism. #7 Restless leg syndrome. #8 History of gastric bypass. Plan: The patient was seen and evaluated by Dr. Masters. She is improved today as compared to yesterday. Not quite back to her baseline. We'll continue with current treatment plan. Increase her activity as tolerated. We'll continue to follow make further recommendations based on her clinical status. I, the cosigning physician, performed a history & physical examination of the patient. Lungs sounds lateral end expiratory wheeze, crackles in the right posterior base. Maintaining good O2 saturations in the 90s on 2 L/m per nasal cannula. I discussed the assessment and plan of care with my nurse practitioner, Nathalie Neri. I attest to the above note as dictated by her.
--- NOTE | 2018-09-30 15:45 | P.PN ---
Subjective Progress Note Date: 09/30/18 This 62-year-old female is admitted to the hospital with cough, shortness of breath and palpitations. She was found to have atrial fibrillation with rapid ventricular response. Patient is also being treated for pneumonia. Patient is back in sinus rhythm. She is on beta elizabeth and anticoagulation therapy. Tolerating well. She is being treated with antibiotics. Hasn't had any arrhythmia for the last 24-48 hours Objective - Vital Signs Vital signs: Vital Signs Temp 97.6 F 09/30/18 12:00 Pulse 72 09/30/18 15:40 Resp 18 09/30/18 12:00 BP 111/58 09/30/18 12:00 Pulse Ox 93 L 09/30/18 12:00 Intake & Output 09/29/18 09/30/18 09/30/18 18:59 06:59 18:59 Intake Total 1764 120 722 Balance 1764 120 722 Weight 81.3 kg Intake: IV 480 20 Azithromycin 500 mg In 250 Sodium Chloride 0.9% 250 ml @ 250 mls/hr IVPB DAILY REANNA Rx#:[id number] Invasive Line 3 20 20 Sodium Chloride 0.9% 1, 160 000 ml @ 20 mls/hr IV . Q24H REANNA Rx#:[id number] cefTRIAXone 1 gm In 50 Sodium Chloride 0.9% 50 ml @ 100 mls/hr IVPB Q24HR REANNA Rx#:[id number] Oral 1284 120 702 Other: Voiding Method Toilet Toilet Toilet # Voids 1 - Exam GENERAL EXAM: Patient is alert and oriented and doesn't appear to be in any acute distress HEENT: Normocephalic. Normal reaction of pupils, equal size, normal range of extraocular motion. No erythema or exudates in the throat. NECK: No masses, no nuchal rigidity. CHEST: No chest wall deformity. LUNGS: Expiratory rhonchi and wheezing HEART: S1 and S2 normal with no audible mumurs or gallops. Regular rhythm, femorals equal on both sides.. ABDOMEN: No hepatosplenomegaly, normal bowel sounds, no guarding or rigidity. SKIN: No rashes CENTRAL NERVOUS SYSTEM: No focal deficits. EXTREMITIES: No cyanosis, clubbing or edema. - Labs CBC & Chem 7: 09/30/18 05:36 09/30/18 05:36 Labs: Abnormal Lab Results - Last 24 Hours (Table) 09/30/18 09/30/18 Range/Units 05:36 05:36 WBC 3.3 L (3.8-10.6) k/uL Glucose 125 H (74-99) mg/dL Microbiology - Last 24 Hours (Table) 09/27/18 10:48 Blood Culture - Preliminary Blood No Growth after 72 hours 09/29/18 09:38 Blood Culture - Preliminary Blood No Growth after 24 hours 09/29/18 09:11 Blood Culture - Preliminary Blood No Growth after 24 hours Assessment and Plan (1) Pneumonia Current Visit: Yes Status: Acute Code(s): J18.9 - PNEUMONIA, UNSPECIFIED ORGANISM SNOMED Code(s): 670976350 (2) Paroxysmal atrial fibrillation with rapid ventricular response Current Visit: Yes Status: Acute Code(s): I48.0 - PAROXYSMAL ATRIAL FIBR ILLATION SNOMED Code(s): 297757980 (3) Essential (primary) hypertension Current Visit: No Status: Acute Code(s): I10 - ESSENTIAL (PRIMARY) HYPERTENSION SNOMED Code(s): 84146337 (4) Hypothyroidism Current Visit: No Status: Acute Code(s): E03.9 - HYPOTHYROIDISM, UNSPECIFIED SNOMED Code(s): 12580307 Plan: Continue current medical therapy. Beta blockers and anti-coagulation therapy will be continued.
[2018-09-30] MEDS: SODIUM CHLORIDE 0.9% 1,000 ML IV SCH (17:19)
[2018-09-30] MEDS: LOSARTAN 25 MG TAB PO SCH (20:34)
[2018-09-30] MEDS ORDERED: ZOLPIDEM 10 MG TAB PO SCH (21:00)
[2018-10-01 04:02] VITALS: RESP 18
[2018-10-01] MEDS: methylPREDNISolone SOD SUCCI 40 MG/ML 1 ML VIAL IV SCH (06:42)
[2018-10-01] MEDS: LEVOTHYROXINE 75 MCG TAB PO SCH (06:42)
[2018-10-01 06:45] LABS: HCT 39.8 % (34.0-46.0); HGB 12.6 gm/dL (11.4-16.0); MCH 28.8 pg (25.0-35.0); MCHC 31.7 g/dL (31.0-37.0); MCV 90.9 fL (80.0-100.0); Platelet Count 249 k/uL (150-450); RBC 4.38 m/uL (3.80-5.40); WBC 4.9 k/uL (3.8-10.6)
[2018-10-01 06:56] LABS: African American GFR (CKD) >90 (>60 ml/min/1.73 sqM); Anion Gap 9 mmol/L; Blood Urea Nitrogen 13 mg/dL (7-17); Carbon Dioxide 25 mmol/L (22-30); Chloride 105 mmol/L (98-107); Glucose 126 mg/dL (74-99); Potassium 4.4 mmol/L (3.5-5.1); Sodium 139 mmol/L (137-145)
[2018-10-01 07:57] VITALS: BP 101/61; TEMP 97.8
[2018-10-01] MEDS: IPRATROPIUM-ALBUTEROL 3 ML NEB INHALATION SCH ×2 (07:57→10:57)
[2018-10-01 08:10] VITALS: PULSE 77
[2018-10-01 08:41] LABS: Lymphocytes # (M) 1.76 k/uL (1.0-4.8); Monocytes # (M) 0.15 k/uL (0-1.0); Neutrophils # (M) 2.99 k/uL (1.3-7.7); Neutrophils % (M) 61 %; Nucleated Red Blood Cells 0 /100 WBC (0-0); Total Cells Counted 100
[2018-10-01 08:42] LABS: Poikilocytosis (M) Present
[2018-10-01] MEDS: ASPIRIN 81 MG PO SCH (08:42)
[2018-10-01] MEDS: CHOLECALCIFEROL 1,000 UNIT TAB PO SCH (08:42)
[2018-10-01] MEDS: MULTIVITAMINS, THERA 1 EACH TAB PO SCH (08:42)
[2018-10-01] MEDS: FERROUS SULFATE 325 MG TAB PO SCH (08:42)
[2018-10-01] MEDS: OXcarbazepine 300 MG TAB PO SCH (08:42)
[2018-10-01] MEDS: APIXABAN 5 MG TAB PO SCH (08:42)
[2018-10-01] MEDS: guaiFENesin 600 MG TABLET.ER PO SCH (08:42)
[2018-10-01] MEDS: METOPROLOL SUCCINATE (ER) 25 MG TAB.ER.24H PO SCH (08:42)
[2018-10-01] MEDS: NYSTATIN 100,000 UNIT/ML SUSP 500,000 UNIT/5 ML CUP PO SCH (08:42)
[2018-10-01] MEDS: LORazepam 1 MG TAB PO SCH (08:42)
[2018-10-01] MEDS ORDERED: AZITHROMYCIN 500 MG TAB PO SCH (09:00)
--- NOTE | 2018-10-01 10:10 | P.PN ---
Subjective Progress Note Date: 10/01/18 Principal diagnosis: Acute hypoxic respiratory failure secondary to an acute right lower lobe community-acquired pneumonia. This is a 63-year-old female with history of multiple medical problems including hypertension, fibromyalgia, seizure disorder, hypothyroidism, patient was admitted mostly with a few days' history of generalized weakness, fatigue, nausea, diarrhea, chills, and occasional productive cough with yellow sputum. Initial chest x-ray on admission showed no evidence of active disease, however follow-up chest x-ray questioned right lower lobe infiltrate. Patient was admitted, placed on antibiotics in the form of Rocephin and Zithromax, I was asked to see her on consultation for her pulmonary symptoms. Patient was seen by cardiology on consultation, mostly because of on admission EKG showed atrial fibrillation with RVR, troponins were negative 3. Her cardiac panel was all normal. And her echocardiogram was normal. I did review the chest x-ray myse lf, there is questionable infiltrate in the right lower lobe, on physical examination she had significant rales and crackles and wheezes bilaterally, hence a high-resolution CT of the chest was ordered. In the meantime the patient was kept on antibiotics, bronchodilators, and I added Solu-Medrol for her reactive bronchospasm. The patient is seen today 09/30/2018 in follow-up on the selective care unit. She is awake and alert in no acute distress. She is up ambulating in the room. She is improved today compared to yesterday but not quite back to her baseline. Still somewhat bronchospastic and wheezy. Still with a loose nonproductive cough. Maintaining O2 saturations in the low 90s on 2 L/m per nasal cannula. She's afebrile. Hemodynamically stable. Blood culture reveals no growth. White count 3.3. Hemoglobin 1213.5. Creatinine 0.60. Maintained on DuoNeb inhalations, ceftriaxone and azithromycin, IV Solu-Medrol. Patient is seen today 10/01/2018 in follow-up on the selective care unit. She is currently resting comfortably in bed. Awake and alert in no acute distress. Maintaining O2 saturations in the low 90s on room air. She's afebrile. Hemodynamically stable. White count 4.9. Hemoglobin 12.6. Creatinine 0.59. Nearly back to her baseline. Objective - Vital Signs Vital signs: Vital Signs Temp 97.8 F 10/01/18 07:55 Pulse 77 10/01/18 08:09 Resp 18 10/01/18 07:57 BP 101/61 10/01/18 07:55 Pulse Ox 91 L 10/01/18 07:55 Intake & Output 09/30/18 10/01/18 10/01/18 18:59 06:59 18:59 Intake Total 2031 140 222 Balance 2031 140 222 Weight 66 kg Intake: IV 490 20 Azithromycin 500 mg In 250 Sodium Chloride 0.9% 250 ml @ 250 mls/hr IVPB DAILY REANNA Rx#:[id number] Invasive Line 3 30 Sodium Chloride 0.9% 1, 160 20 000 ml @ 20 mls/hr IV . Q24H REANNA Rx#:[id number] cefTRIAXone 1 gm In 50 Sodium Chloride 0.9% 50 ml @ 100 mls/hr IVPB Q24HR REANNA Rx#:[id number] Oral 1542 120 222 Other: Voiding Method Toilet Toilet Toilet - Exam GENERAL EXAM: Very pleasant 63-year-old female patient. Alert, active, comfortable in no apparent distress. On room air. HEAD: Normocephalic. EYES: Normal reaction of pupils, equal size. NOSE: Clear with pink turbinates. THROAT: No erythema or exudates. NECK: No masses, no JVD. CHEST: No chest wall deformity. LUNGS: Equal air entry with bilateral end expiratory wheeze, crackles in the ri ght posterior base. CVS: S1 and S2 normal with no audible murmur, regular rhythm. ABDOMEN: No hepatosplenomegaly, normal bowel sounds, no guarding or rigidity. SPINE: No scoliosis or deformity SKIN: No rashes CENTRAL NERVOUS SYSTEM: No focal deficits, tone is normal in all 4 extremities. EXTREMITIES: There is no peripheral edema. No clubbing, no cyanosis. Peripheral pulses are intact. - Labs CBC & Chem 7: 10/01/18 06:03 10/01/18 06:03 Labs: Abnormal Lab Results - Last 24 Hours (Table) 10/01/18 Range/Units 06:03 Glucose 126 H (74-99) mg/dL Microbiology - Last 24 Hours (Table) 09/27/18 10:48 Blood Culture - Preliminary Blood No Growth after 72 hours 09/29/18 09:38 Blood Culture - Preliminary Blood No Growth after 24 hours 09/29/18 09:11 Blood Culture - Preliminary Blood No Growth after 24 hours Assessment and Plan Assessment: Impression: #1 Acute hypoxic respiratory failure secondary to an acute community-acquired right lower lobe pneumonia. #2 Fibromyalgia. #3 Remote history of alcohol abuse. #4 Hypertension. #5 History of migraines. #6 Hypothyroidism. #7 Restless leg syndrome. #8 History of gastric bypass. Plan: The patient was seen and evaluated by Dr. Masters. She is cleared for discharge from the pulmonary standpoint. Complete a prednisone burst and taper. Complete a course of antibiotics. Follow-up in our office in 1-2 weeks' time. We'll repeat a chest x-ray then. Need follow-up patchy right perihilar and lower lobe infiltrates to rule out underlying hilar lesion or mass. She is encouraged to call sooner with any recurrence of symptoms or other questions or concerns. I, the cosigning physician, performed a history & physical examination of the patient. Lungs sounds bilateral end expiratory wheeze, crackles in the right posterior base. Maintaining good O2 saturations in the 90s on room air. I discussed the assessment and plan of care with my nurse practitioner, Nathalie Neri. I attest to the above note as dictated by her.
--- NOTE | 2018-10-01 11:47 | P.PN ---
Subjective Progress Note Date: 10/01/18 This is a pleasant 63-year-old female who follows regularly with Dr. Parmar in the office. She has past medical history significant for bipolar disorder, seizure disorder, hypothyroidism, uncontrolled hypertension and former alcohol abuse. Patient did undergo a stress echocardiographic study in January 2018 that was unremarkable for any ischemic changes. She presented to the hospital on this occasion with symptoms of progressively worsening shortness of breath with associated cough, she was also running a mild fever at home as well as on arrival here. Her EKG on presentation here showed atrial flutter with a rapid ventricular response. This morning patient is currently in a normal sinus rhythm. Chest x-ray shows chronic changes without suspicious acute pulmonary process. Blood pressure on arrival here 126/70 with a heart rate in the 90s, temperature 99.6, 95% on room air. White blood cell count 4.2, hemoglobin 12.6, platelet count 227. Sodium 137, potassium 4.3, BUN 13 and creatinine 0.6. Magnesium 1.9. Troponins negative 3. BNP level 68. Influenza A and B-. 09/29/2018 Patient was seen and examined this morning, denies any chest discomfort. Continues to have mild wheezing and cough. Echocardiogram with Doppler study was performed which revealed an ejection fraction of 55-60%. Blood pressure 96 over a heart rate in the 60s to 70s, 94% on 2 L of oxygen. White blood cell count 4.2, hemoglobin 12.2, platelet count 28. Sodium 132, potassium 3.8, BUN 13 and creatinine 0.6. 10/01/2018 Patient seen and examined this morning, overall doing well. Remaining in normal sinus rhythm. Hemodynamically stable still continues to have some mild wheezing. Objective - Vital Signs Vital signs: Vital Signs Temp 97.8 F 10/01/18 07:55 Pulse 77 10/01/18 08:09 Resp 18 10/01/18 07:57 BP 101/61 10/01/18 07:55 Pulse Ox 91 L 10/01/18 07:55 Intake & Output 09/30/18 10/01/18 10/01/18 18:59 06:59 18:59 Intake Total 2031 140 222 Balance 2031 140 222 Weight 66 kg Intake: IV 490 20 Azithromycin 500 mg In 250 Sodium Chloride 0.9% 250 ml @ 250 mls/hr IVPB DAILY [facility]ANNA Rx#:[id number] Invasive Line 3 30 Sodium Chloride 0.9% 1, 160 20 000 ml @ 20 mls/hr IV . Q24H [facility]ANNA Rx#:[id number] cefTRIAXone 1 gm In 50 Sodium Chloride 0.9% 50 ml @ 100 mls/hr IVPB Q24HR [facility]NA Rx#:[id number] Oral 1542 120 222 Other: Voiding Method Toilet Toilet Toilet - Exam PHYSICAL EXAMINATION: GENERAL: 63-year-old female in no acute distress at the time of my examination HEENT: Head is atraumatic, normocephalic. Pupils equal, round. Sclera anicteric. Conjunctiva are clear. Mucous membranes of the mouth are moist. Neck is supple. There is no elevated jugular venous pressure. No carotid bruit is heard. HEART EXAMINATION: Heart S1-S2 with systolic murmur is heard CHEST EXAMINATION: Lungs reveal scattered wheezing throughout ABDOMEN: Soft, nontender. Bowel sounds are heard. No organomegaly noted. EXTREMITIES: 2+ peripheral pulses with no evidence of peripheral edema and no calf tenderness noted. NEUROLOGIC patient is awake, alert and oriented 3 . - Labs CBC & Chem 7: 10/01/18 06:03 10/01/18 06:03 Labs: Abnormal Lab Results - Last 24 Hours (Table) 10/01/18 Range/Units 06:03 Glucose 126 H (74-99) mg/dL Microbiology - Last 24 Hours (Table) 09/29/18 09:11 Blood Culture - Preliminary Blood No Growth after 48 hours 09/27/18 10:48 Blood Culture - Preliminary Blood No Growth after 72 hours 09/29/18 09:38 Blood Culture - Preliminary Blood No Growth after 24 hours Assessment and Plan Plan: Assessment and plan #1 symptoms of shortness of breath with associated cough and fever suggestive possible tracheobronchitis #2 atrial flutter, atypical, be of new onset, currently in normal sinus rhythm. #3 hypertension #4 history of seizure disorder #5 hypothyroidism #6 bipolar disorder #7 history of alcohol abuse Plan From cardiology's perspective, patient may be able to be discharged home once cleared by primary. We will follow her now on an as-needed basis only please don't hesitate to call with any questions. DNP note has been reviewed, I agree with a documented findings and plan of care. Patient was seen and examined.
--- NOTE | 2018-10-01 11:50 | P.DS ---
Providers Date of admission: 09/27/18 13:12 Expected date of discharge: 10/01/18 Attending physician: Dariel Ching Consults: 09/27/18 13:13 Consult Physician Routine Consulting Provider: Edi Willingham Consult Reason/Comments: Paroxysmal atrial fibrillation Do you want consulting provider notified?: Yes 09/29/18 13:48 Consult Physician Routine Consulting Provider: Candis Mastres Consult Reason/Comments: hypoxia,febrile Do you want consulting provider notified?: Yes Primary care physician: Dariel Ching - Discharge Diagnosis(es) (1) Acute bronchospasm Current Visit: Yes Status: Acute (2) Paroxysmal atrial fibrillation with rapid ventricular response Current Visit: Yes Status: Acute (3) Pneumonia Current Visit: Yes Status: Acute (4) Anxiety Current Visit: No Status: Acute (5) Essential (primary) hypertension Current Visit: No Status: Acute (6) Hypothyroidism Current Visit: No Status: Acute (7) Migraine Current Visit: No Status: Acute Hospital Course: This is 63-year-old female with history of hypertension, seizure disorder, hypothyroidism, fibromyalgia, anxiety, depression, bipolar and multiple other medical issues presented to the ER with complaints of generalized weakness, fatigue, nausea, diarrhea, chills, fever, dizziness, productive cough of 5 days-sputum color unknown,accompanied by burning chest pain, palpitations, exertional shortness of breath, runny nose. Reports she has been having palpitations over the last few weeks with med. adjustments as per cardiology. Influenza screen negative .chest x-ray nonacute, chronic paranchymal changes. EKG on admission reporting atrial fibrillation with RVR, and another EKG with sinus rhythm with first-degree AV block. Troponins negative 3. Magnesium 1.9.VSS. BNP 68. CBC, BMP remarkable. Echo pending. 09/29/18 Tmax 101.7,WBC normal, Requiring 2L NC O2 to maintain O2 sat of low 90's(yesterday on room air). Nonproductive loose cough.preliminary blood cultures negative at 48 hours. Echo reporting moderate concentric left ventricular hypertrophy with normal LV function, EF 55-60%. Telemetry sinus rhythm with PACs 09/30/2018 this day follow-up chest x-ray reporting right lower lobe infiltrate, Zithromax added in addition to Rocephin. Evaluated by pulmonary with IV steroids initiated. Chest CT reporting large right opacity with left basilar atelectasis, right upper lobe nodule-patient states is not new, possible 5mm hepatic cyst of the left lobe.Breathing improving. Maintaining O2 sats in the low 90s on 2 L nasal cannula, 88% on room air. T-max 99.7, WBC within normal limits. Telemetry sinus rhythm 10/01/2018: Patient has been on room air overnight and doing well. She is anticoagulated for atrial fibrillation Elequis. She remains on metoprolol for heart rate control and blood pressure. She is on Solu-Medrol and DuoNeb updrafts along with azithromycin and Rocephin for pneumonia coverage. She is cleared by pulmonology and cardiology. She'll be sent home with new prescriptions as seen in the medication list Patient Condition at Discharge: Fair Plan - Discharge Summary Discharge Rx Participant: No New Discharge Prescriptions: New Apixaban [Eliquis] 5 mg PO BID #60 tab Ipratropium/Albuterol Sulfate [Combivent Respimat Inhaler] 1 - 2 puff INHALATION QID PRN #1 inhaler PRN Reason: Shortness Of Breath Or Wheezing guaiFENesin [Mucinex] 1,200 mg PO Q12HR #20 tablet.er Nystatin 100,000 Unit/ml Susp [Mycostatin Oral Susp] 500,000 unit PO QID #28 cup predniSONE See Taper PO DAILY #30 tab Metoprolol Succinate (ER) [Toprol XL] 25 mg PO DAILY #30 tab.er.24h Azithromycin [Zithromax] 500 mg PO DAILY #3 tab Continue LORazepam [Lorazepam] 1 mg PO QAM Levocetirizine Dihydrochloride [Xyzal] 5 mg PO QAM PRN PRN Reason: Allergy Symptoms Multivitamins, Thera [Multivitamin (formulary)] 1 tab PO DAILY Zolpidem [Ambien] 10 mg PO HS PRN PRN Reason: Insomnia Schriever-3 Fatty Acids/Fish Oil [Fish Oil 1,000 mg Softgel] 1 cap PO DAILY Cholecalciferol [Vitamin D3 (25 Mcg = 1000 Iu)] 1,000 unit PO DAILY Biotin 5 mg PO DAILY SUMAtriptan SUCCINATE [Imitrex] 50 mg PO DAILY PRN PRN Reason: Migraine Headache QUEtiapine [SEROquel] 300 mg PO HS PRN PRN Reason: Insomnia OXcarbazepine [Trileptal] 300 mg PO TID Ferrous Sulfate [Iron] 325 mg PO DAILY Promethazine [Phenergan] 12.5 mg PO Q8HR PRN PRN Reason: Nausea And Vomiting Levothyroxine Sodium [Synthroid] 75 mcg PO DAILY Aspirin EC [Ecotrin Low Dose] 81 mg PO DAILY #30 tablet. amLODIPine [Norvasc] 5 mg PO HS LORazepam [Ativan] 2 mg PO HS Losartan [Cozaar] 25 mg PO HS Discharge Medication List LORazepam [Lorazepam] 1 mg PO QAM 05/04/14 [History] Levocetirizine Dihydrochloride [Xyzal] 5 mg PO QAM PRN 02/07/15 [History] Multivitamins, Thera [Multivitamin (formulary)] 1 tab PO DAILY 02/15/15 [History] Zolpidem [Ambien] 10 mg PO HS PRN 02/05/17 [History] Biotin 5 mg PO DAILY 01/15/18 [History] Cholecalciferol [Vitamin D3 (25 Mcg = 1000 Iu)] 1,000 unit PO DAILY 01/15/18 [History] Ferrous Sulfate [Iron] 325 mg PO DAILY 01/15/18 [History] OXcarbazepine [Trileptal] 300 mg PO TID 01/15/18 [History] Schriever-3 Fatty Acids/Fish Oil [Fish Oil 1,000 mg Softgel] 1 cap PO DAILY 01/15/18 [History] QUEtiapine [SEROquel] 300 mg PO HS PRN 01/15/18 [History] SUMAtriptan SUCCINATE [Imitrex] 50 mg PO DAILY PRN 01/15/18 [History] Levothyroxine Sodium [Synthroid] 75 mcg PO DAILY 08/22/18 [History] Promethazine [Phenergan] 12.5 mg PO Q8HR PRN 08/22/18 [History] Aspirin EC [Ecotrin Low Dose] 81 mg PO DAILY #30 tablet. 08/24/18 [Rx] LORazepam [Ativan] 2 mg PO HS 09/27/18 [History] Losartan [Cozaar] 25 mg PO HS 09/27/18 [History] amLODIPine [Norvasc] 5 mg PO HS 09/27/18 [History] Apixaban [Eliquis] 5 mg PO BID #60 tab 09/28/18 [Rx] Azithromycin [Zithromax] 500 mg PO DAILY #3 tab 10/01/18 [Rx] Ipratropium/Albuterol Sulfate [Combivent Respimat Inhaler] 1 - 2 puff INHALATION QID PRN #1 inhaler 10/01/18 [Rx] Metoprolol Succinate (ER) [Toprol XL] 25 mg PO DAILY #30 tab.er.24h 10/01/18 [Rx] Nystatin 100,000 Unit/ml Susp [Mycostatin Oral Susp] 500,000 unit PO QID #28 cup 10/01/18 [Rx] guaiFENesin [Mucinex] 1,200 mg PO Q12HR #20 tablet.er 10/01/18 [Rx] predniSONE See Taper PO DAILY #30 tab 10/01/18 [Rx] Follow up Appointment(s)/Referral(s): Dariel Ching MD [Primary Care Provider] - 1-2 days Patient Instructions/Handouts: A-fib (Atrial Fibrillation) (DC), Safe Use of Anticoagulants (DC) Activity/Diet/Wound Care/Special Instructions: Adrien holt @[facility] - copay $9.37
== END 2018-10-01 14:26 | disposition home or self-care (01) | DRG 193 ==
LOC: EC 08:21 → 3SCARD 13:12
PROVIDERS: ADMIT Family Medicine; ATTEND Family Medicine
DX: J18.1 Lobar pneumonia, unspecified organism (principal); J96.01 Acute respiratory failure with hypoxia; I48.4 Atypical atrial flutter; I48.0 Paroxysmal atrial fibrillation; G25.81 Restless legs syndrome; E03.9 Hypothyroidism, unspecified; F31.9 Bipolar disorder, unspecified; J20.9 Acute bronchitis, unspecified; I11.9 Hypertensive heart disease without heart failure; J98.01 Acute bronchospasm; I44.0 Atrioventricular block, first degree; M79.7 Fibromyalgia; M19.90 Unspecified osteoarthritis, unspecified site; G43.909 Migraine, unspecified, not intractable, without status migrainosus; F41.1 Generalized anxiety disorder; G40.909 Epilepsy, unspecified, not intractable, without status epilepticus; F10.11 Alcohol abuse, in remission; Z79.82 Long term (current) use of aspirin; Z79.890 Hormone replacement therapy; Z79.899 Other long term (current) drug therapy; Z98.84 Bariatric surgery status; Z90.49 Acquired absence of other specified parts of digestive tract; Z98.890 Other specified postprocedural states; Z98.51 Tubal ligation status; Z90.81 Acquired absence of spleen; Z88.5 Allergy status to narcotic agent; Z88.8 Allergy status to other drugs, medicaments and biological substances; Z83.3 Family history of diabetes mellitus; Z82.49 Family history of ischemic heart disease and other diseases of the circulatory system; Z82.3 Family history of stroke; Z80.1 Family history of malignant neoplasm of trachea, bronchus and lung
CPT/HCPCS: 36415; 71046; 71250; 80048; 80053; 81001; 82550; 83735; 83880; 84443; 84484; 85025; 85610; 85730; 87040; 87502; 93005; 93306; 94640; 94760; 96365; 96366; 99291

== ENCOUNTER → 2018-10-06 | Outpatient (CLI) | payer MEDICARE ==
[2018-10-06 18:54] LABS: T4, Free (Free Thyroxine) 1.4 ng/dL (0.80-1.80)
== END | disposition home or self-care (01) ==
LOC: LABWHC1 14:04
PROVIDERS: ATTEND Nurse Practitioner Family
DX: E03.9 Hypothyroidism, unspecified (principal)
CPT/HCPCS: 36415; 84439; 84443

== ENCOUNTER → 2018-11-15 | Outpatient (CLI) | payer MEDICARE | END | disposition home or self-care (01) | LOC: LABWHC1 15:13 | PROVIDERS: ATTEND Dermatology | DX: L30.9 Dermatitis, unspecified (principal) | CPT/HCPCS: 36415; 86618 ==

== ENCOUNTER → 2018-12-27 | Outpatient (CLI) | payer MEDICARE | LOC: LABWHC1 07:14 | PROVIDERS: ATTEND Internal Medicine Endocrinology, Diabetes & Metabolism | DX: E03.8 Other specified hypothyroidism (principal) | CPT/HCPCS: 36415; 84443 ==

== ENCOUNTER 2019-02-21 11:34 | Day surgery (SDC) | payer MEDICARE ==
[2019-02-20 15:28] VITALS: BMI 34.5
[~2019-02-21 11:34] MED LIST: LACTATED RINGERS 1,000 ML IV SCH
[2019-02-21 12:06] VITALS: TEMP 97.8
[2019-02-21] MEDS ORDERED: LIDOCAINE 1% 20 ML VIAL (10MG/ML) FOR IV START INTRADERMA ONE (12:10)
[2019-02-21] MEDS ORDERED: LIDOCAINE 1% INJ 10MG/ML (20 ML MDV) ONE (13:05)
[2019-02-21] MEDS ORDERED: PROPOFOL 10 MG/ML 20 ML VIAL IV ONE (13:05)
--- NOTE | 2019-02-21 13:42 | P.PCN ---
Date of Procedure: 02/21/19 Description of Procedure: BRIEF HISTORY: Patient is a 63-year-old female with medical history significant for multiple medical comorbidities and prior Sveta fundoplication as well as esophageal dilation who presents for EGD for evaluation of esophageal dysphagia. Intermittent episodes of esophageal dysphagia reported. PROCEDURE PERFORMED: Esophagogastroduodenoscopy with biopsy and reltnfo-hnu-lactg balloon dilation of the esophagus. PREOPERATIVE DIAGNOSIS: Esophageal dysphagia. ESTIMATED BLOOD LOSS: Minimal. IV sedation per anesthesia. PROCEDURE: After informed consent was obtained, the patient was brought into the endoscopy unit. IV sedation was administered by Anesthesia under continuous monitoring. Initially the Olympus GIF-190 video endoscope was inserted into the mouth. Esophagus intubated without any difficulty. It was gradually advanced into the stomach and duodenum and carefully examined. The bulb and the second part of the duodenum appeared normal, with biopsies taken. The scope at this time was withdrawn to the stomach, adequately insufflated with air, and upon careful examination, mucosa of the antrum, body, cardia and the fundus appeared normal except for some mild scattered erythema in antrum and body suggestive of mild gastritis with biopsies of the antrum and body taken. The scope was then withdrawn into the esophagus. The GE junction was located at 35 cm from the incisors with a widely patent esophageal narrowing/stricture noted that was dilated sequentially with qultgqt-swx-cacqk balloon dilation to 9 mm10 mm11 mm12 mm.. The esophagus was significant for LA grade a distal esophagitis. There were no erosions or ulcerations seen and the patient tolerated the procedure well. IMPRESSION: 1. Mild gastritis antrum body, biopsied. 2. Esophagitis. 3. Benign-appearing widely patent distal esophageal narrowing/stricture dilated with nuopdqn-rog-ckdck balloon dilator. 4. Duodenal biopsies. RECOMMENDATIONS: The findings of this examination were discussed with the patient and her . Okay to resume medication. Suspicion is that the large component of patient's esophageal dysphagia secondary to esophagitis. At this time patient will be started on omeprazole 20 mg twice daily to be taken before meals which can be titrated based on symptoms. Await pathology from biopsies. Follow up in the gastroenterology clinic as previously scheduled.
[2019-02-21 13:56] VITALS: PULSE 73; RESP 16
[2019-02-21 14:12] VITALS: BP 113/72
== END 2019-02-21 14:13 | disposition home or self-care (01) ==
LOC: ORWHC2ENDO 11:34
PROVIDERS: ATTEND Internal Medicine
DX: K22.2 Esophageal obstruction (principal); K29.50 Unspecified chronic gastritis without bleeding; K21.0 Gastro-esophageal reflux disease with esophagitis; I10 Essential (primary) hypertension; I48.91 Unspecified atrial fibrillation; E78.5 Hyperlipidemia, unspecified; G47.33 Obstructive sleep apnea (adult) (pediatric); F41.9 Anxiety disorder, unspecified; F31.9 Bipolar disorder, unspecified; G43.909 Migraine, unspecified, not intractable, without status migrainosus; M79.7 Fibromyalgia; M19.90 Unspecified osteoarthritis, unspecified site; Z87.01 Personal history of pneumonia (recurrent); Z88.5 Allergy status to narcotic agent; Z88.8 Allergy status to other drugs, medicaments and biological substances; Z86.69 Personal history of other diseases of the nervous system and sense organs; Z79.890 Hormone replacement therapy; Z79.01 Long term (current) use of anticoagulants; Z79.899 Other long term (current) drug therapy; Z90.81 Acquired absence of spleen; Z90.49 Acquired absence of other specified parts of digestive tract; Z98.890 Other specified postprocedural states
CPT/HCPCS: 88305; 43239; 43249; J2001; J2704; C1726 ×2

== ENCOUNTER → 2019-03-03 | Outpatient (CLI) | payer MEDICARE ==
--- NOTE | 2019-03-06 11:17 | MM ---
Reason for exam: screening (asymptomatic). Last mammogram was performed 1 year and 1 month ago. History: Patient is postmenopausal. Family history of breast cancer in sister at age 57 and breast cancer in grandmother. Benign excisional biopsy of the right breast, October 29, 2000. Took hormonal contraceptives for 4 years beginning at age 9. Physical Findings: A clinical breast exam by your physician is recommended on an annual basis and results should be correlated with mammographic findings. MG 3D Screening Mammo W/Cad Bilateral CC and MLO view(s) were taken. Prior study comparison: January 20, 2018, bilateral MG 3d screening mammo w/cad. January 19, 2017, bilateral MG 3d screening mammo w/cad. There are scattered fibroglandular densities. There is no discrete abnormality. No significant changes when compared with prior studies. ASSESSMENT: Negative, BI-RAD 1 RECOMMENDATION: Routine screening mammogram of both breasts in 1 year.
--- NOTE | 2019-03-06 16:45 | BD ---
EXAMINATION TYPE: Axial Bone Density DATE OF EXAM: 03/03/2019 COMPARISON: NONE CLINICAL HISTORY: Height: 5 FT Weight: 179 FRAX RISK QUESTIONS: History of Fracture in Adulthood: YES Secondary Osteoporosis: RISK FACTORS HISTORY OF: History of Wrist Fracture: JUDI LEFT WRIST FX X2 When: RT WRIST 44 LT WRIST 45 Family History of Osteoporosis: YES Active: YES Postmenopausal woman: AGE 50 Lost more than 2 inches in height since high school: YES MEDICATIONS: Thyroid Medications: YES Which medication: LEVOTHYROXINE How Long: HAS TAKEN FOR OVER 27 YEARS Additional Medications: LEVOTHYROXINE, LOSARTIN, AMLODIPINE, METOPROLOL, ELAQUIS, ADIVAN, SERAQUIL ,T RILIPTAL, AMBIEN, Additional History: EXAM MEASUREMENTS: Bone mineral densitometry was performed using the truedash System. Bone mineral density as measured about the Lumbar spine is: ----- L1-L4(G/cm2): 1.014 T Score Values are as follows: ----- L2: -1.9 ----- L3: -1.5 ----- L4: -0.2 ----- L1-L4: -1.4 Bone mineral density has: INCREASED 6.0%SINCE STUDY OF 2016 Bone mineral density about the R hip (g/cm2): 0.723 Bone mineral density about the L hip (g/cm2): 0.772 T Score values are as follows: -----R Neck: -2.3 -----L Neck: -1.9 -----R Total: -1.5 -----L Total: -0.9 Bone mineral density has: INCREASED 3.8 SINCE STUDY OF 2016 IMPRESSION: Osteopenia (T Score between -2.5 and -1). There is slightly increased risk of fracture and the patient may be considered for treatment. Re-Screen 2-5 years. NOTE: T-SCORE=SD OF THE YOUNG ADULT MEAN.
== END | disposition home or self-care (01) ==
LOC: RADMAMWWP 14:28
PROVIDERS: ATTEND Family Medicine
DX: Z12.31 Encounter for screening mammogram for malignant neoplasm of breast (principal); M85.80 Other specified disorders of bone density and structure, unspecified site; Z80.3 Family history of malignant neoplasm of breast; Z78.0 Asymptomatic menopausal state
CPT/HCPCS: 77063; 77067; 77080

== ENCOUNTER → 2019-03-17 | Outpatient (CLI) | payer MEDICARE ==
[2019-03-17 15:13] LABS: Appearance,Urine Clear (Clear); Bilirubin,Urine Negative (Negative); Blood,Urine Negative (Negative); Color,Urine Yellow; Glucose,Urine (UA) Negative (Negative); Ketones,Urine Trace (Negative); Leukocyte Esterase,Urine Trace (Negative); Mucus,Urine Occasional /hpf; Nitrite,Urine Negative (Negative); Protein,Urine Negative (Negative); RBC,Urine 1 /hpf (0-5); Specific Gravity,Urine 1.012 (1.001-1.035); Squamous Epithelial Cell,Urine <1 /hpf (0-4); Urobilinogen,Urine <2.0 mg/dL (<2.0); WBC,Urine 3 /hpf (0-5)
[2019-03-17 15:15] LABS: Basophils % (A) 1 %; Eosinophils # (A) 0.1 k/uL (0-0.7); Eosinophils % (A) 1 %; HCT 47.2 % (34.0-46.0); Lymphocytes # (A) 2.1 k/uL (1.0-4.8); Lymphocytes % (A) 39 %; MCH 30.1 pg (25.0-35.0); MCHC 31.8 g/dL (31.0-37.0); MCV 94.4 fL (80.0-100.0); Mean Platelet Volume 7.3; Monocytes # (A) 0.3 k/uL (0-1.0); Monocytes % (A) 6 %; Neutrophils # (A) 2.7 k/uL (1.3-7.7); Neutrophils % (A) 51 %; Platelet Count 347 k/uL (150-450); RDW 14.4 % (11.5-15.5); WBC 5.3 k/uL (3.8-10.6)
[2019-03-17 18:32] LABS: ALT 24 U/L (8-44); AST 26 U/L (13-35); African American GFR (CKD) 89.7 (60.0-200.0); Albumin/Globulin Ratio 2.42 (1.60-3.17); Alkaline Phosphatase 60 U/L (41-126); BUN/Creat Ratio 18.75 Ratio (12.00-20.00); C Reactive Protein <0.4 mg/dL (0.0-0.8); Calcium 10.3 mg/dL (8.7-10.3); Carbon Dioxide 26.8 mmol/L (21.6-31.8); Chloride 104 mmol/L (96-109); Chol/HDL Ratio 1.68; Cholesterol 173 mg/dL (0-200); Creatine Kinase 90 U/L (26-186); Globulin 1.9 g/dL (1.6-3.3); Glucose 94 mg/dL (70-110); LDL Cholesterol,Calculated 59.4 mg/dL (0.0-131.0); Non-African American GFR(CKD) 77.4 (60.0-200.0); Phosphorus 3.9 mg/dL (2.4-5.1); Potassium 5.2 mmol/L (3.5-5.5); Sodium 138 mmol/L (135-145); Total Bilirubin 0.4 mg/dL (0.3-1.2); Total Protein 6.5 g/dL (6.2-8.2)
[2019-03-17 19:24] LABS: Erythrocyte Sedimentation Rate 4 mm/hr (0-20)
[2019-03-17 20:08] LABS: Hepatitis A Antibody IgM Non-Reactive (Non-Reactive); Hepatitis B Core IgM Non-Reactive (Non-Reactive); Hepatitis B Surface Antigen Non-Reactive (Non-Reactive); Hepatitis C IgG Antibody Non-Reactive (Non-Reactive)
[2019-03-17 22:19] LABS: Hemoglobin A1C 5.6 % (4.0-6.0)
== END | disposition home or self-care (01) ==
LOC: LABWHC1 14:23
PROVIDERS: ATTEND Internal Medicine
DX: D64.9 Anemia, unspecified (principal); E11.9 Type 2 diabetes mellitus without complications; N20.0 Calculus of kidney; E03.9 Hypothyroidism, unspecified; E78.5 Hyperlipidemia, unspecified; E55.9 Vitamin D deficiency, unspecified
CPT/HCPCS: 36415; 80053; 80061; 80074; 81001; 82306; 82550; 83036; 83735; 84100; 84443; 85025; 85652; 86140

== ENCOUNTER → 2019-05-11 | Outpatient (CLI) | payer MEDICARE ==
--- NOTE | 2019-05-11 15:49 | CT ---
EXAMINATION TYPE: CT chest w con DATE OF EXAM: 05/11/2019 COMPARISON: CT chest September 29, 2018 HISTORY: lung nodule CT DLP: 353.5 mGycm. Automated Exposure Control for Dose Reduction was Utilized. TECHNIQUE: CT scan of the thorax is performed following with IV Contrast, patient injected with 100 mL of Isovue 300. FINDINGS: LUNGS: Interval resolution of irregular right infrahilar consolidation involving middle and to greate r degree lower lobes. Prior visualized 5 mm right upper lobe nodule or nodular consolidation presumed axial image 23 though imaging is not marked as not clearly identified on current study was done with resolution of nodular consolidation. No new greater than 5 mm pulmonary nodules or masses bilaterall y. There is no pleural effusion or pneumothorax seen. The tracheobronchial tree is patent. MEDIASTINUM: There are no new greater than 1 cm hilar or mediastinal lymph nodes. No cardiomegaly o r pericardial effusion is seen. Somewhat small thyroid gland. Coronary artery calcification redemons trated which is noted marker for underlying coronary artery disease. OTHER: Cholecystectomy clips redemonstrated. Stable thin-walled 2.8 cm cyst left hepatic lobe near in terlobar fissure axial image [address] Mild multilevel spurring in the thoracic spine. IMPRESSION: Interval resolution of right mid to lower lung infiltrate. Interval resolution of 5 mm no dule or nodular consolidation. No new suspicious nodules or masses.
== END | disposition home or self-care (01) ==
LOC: RADCTMAIN 14:15
PROVIDERS: ATTEND Internal Medicine
DX: R91.1 Solitary pulmonary nodule (principal); Z88.5 Allergy status to narcotic agent; Z88.8 Allergy status to other drugs, medicaments and biological substances
CPT/HCPCS: 82565; 84520; 71260; 36415; Q9967

== ENCOUNTER → 2019-05-15 | Outpatient (CLI) | payer MEDICARE ==
--- NOTE | 2019-05-15 12:07 | XR ---
EXAMINATION TYPE: XR chest 2V DATE OF EXAM: 05/15/2019 COMPARISON: 09/29/2018 HISTORY: Cough TECHNIQUE: Frontal and lateral views of the chest are obtained. FINDINGS: Chronic interstitial prominence. There is no focal air space opacity, pleural effusion, or pneumothorax seen. The cardiac silhouette size is within normal limits. The osseous structures ar e intact. Mild multilevel degenerative change of the spine. Cholecystectomy clips are seen. IMPRESSION: No acute cardiopulmonary process.
== END | disposition home or self-care (01) ==
LOC: RADXRMAIN 11:21
PROVIDERS: ATTEND Internal Medicine
DX: E53.8 Deficiency of other specified B group vitamins (principal); R05 Cough
CPT/HCPCS: 71046

== ENCOUNTER → 2019-07-19 | Outpatient (CLI) | payer MEDICARE | END | disposition home or self-care (01) | LOC: LABWHC1 08:08 | PROVIDERS: ATTEND Internal Medicine Endocrinology, Diabetes & Metabolism | DX: E03.8 Other specified hypothyroidism (principal) | CPT/HCPCS: 36415; 84443 ==

== ENCOUNTER → 2020-01-02 | Outpatient (CLI) | payer MEDICARE ==
[2020-01-02 16:38] LABS: Basophils # (A) 0.1 k/uL (0-0.2); Basophils % (A) 1 %; Eosinophils # (A) 0.4 k/uL (0-0.7); Eosinophils % (A) 5 %; HCT 47.5 % (34.0-46.0); HGB 15.2 gm/dL (11.4-16.0); Lymphocytes # (A) 2.4 k/uL (1.0-4.8); Lymphocytes % (A) 33 %; MCH 30.4 pg (25.0-35.0); MCV 95.2 fL (80.0-100.0); Mean Platelet Volume 8.1; Monocytes # (A) 0.7 k/uL (0-1.0); Monocytes % (A) 9 %; Neutrophils # (A) 3.7 k/uL (1.3-7.7); Neutrophils % (A) 51 %; Platelet Count 264 k/uL (150-450); RBC 4.99 m/uL (3.80-5.40); RDW 13.7 % (11.5-15.5); WBC 7.3 k/uL (3.8-10.6)
--- NOTE | 2020-01-03 07:01 | XR ---
EXAMINATION TYPE: XR chest 2V DATE OF EXAM: 01/02/2020 COMPARISON: 05/15/2019 HISTORY: Shortness of breath TECHNIQUE: Frontal and lateral views of the chest are obtained. FINDINGS: Scattered senescent parenchymal changes noted. Hyperinflation compatible with COPD. No evidence for infiltrate. No evidence for atelectasis. Heart size is stable. Mediastinal structures are stable and grossly unremarkable. No evidence for hilar prominence. Degenerative changes dorsal spine. IMPRESSION: 1. No evidence for acute pulmonary disease.
== END | disposition home or self-care (01) ==
LOC: LABWHC1 15:49
PROVIDERS: ATTEND Internal Medicine
DX: J12.9 Viral pneumonia, unspecified (principal); J06.9 Acute upper respiratory infection, unspecified
CPT/HCPCS: 36415; 71046; 85025

== ENCOUNTER → 2020-02-22 | Outpatient (CLI) | payer MEDICARE ==
--- NOTE | 2020-02-22 13:04 | CONS ---
CONSULTATION DATE OF SERVICE: 02/22/2020 A 64-year-old lady who has been [facility]evaluated [facility] for obstructive sleep apnea-hypopnea syndrome. HISTORY OF PRESENT ILLNESS/SLEEP WAKE EVALUATION: Patient has been diagnosed with obstructive sleep apnea about 9 years ago. Since that time, she is on treatment with CPAP. Presently her sleep schedule from 10 pm - 3 am until 7:30 am. She does have problems with falling asleep. Has TV set in bedroom, she usually sleeps on the side position. She wakes up from sleep at least 3 times with nocturia. During the day, she may seldom take any naps, usually in the middle of the day. She usually feels refreshed after a nap. Does not see dreams in her naps. No history of hypnagogic hallucinations, sleep paralysis or cataplexy. [place] Sleepiness Scale is 5. PAST MEDICAL HISTORY: Positive for atrial fibrillation, several episodes of pneumonia, hypertension, hyperlipidemia, acid reflux. History of depression, history of sinusitis, history of restless legs syndrome. PAST SURGICAL HISTORY: Esophageal surgery several times, tubal ligation, cholecystectomy, splenectomy. MEDICATIONS: 100 mg, omeprazole 40 mg, Eliquis 5 mg, levocetirizine 5 mg, atorvastatin 20 mg, Imitrex 100 mg, 300 mg. SOCIAL HISTORY: Negative for smoking, history of ETOH abuse in the past. FAMILY HISTORY: Hypertension, headaches, thyroid problem, mental illness. REVIEW OF SYSTEMS: Awakenings from sleep. PHYSICAL EXAM: lady without distress, BP 130/82, HR 72, RR 15, height 5, 2, weight 172.2, BMI 31.4, temperature 98.4, oxygen saturation from 94%. OROPHARYNX: Low position of soft palate, Mallampati 3. HEART: S1, S2 with some irregularities. I checked patient's CPAP unit. CPAP pressure is 10 cm of water, usage is 26/30 nights and 15 times more than 4 hours, average usage 4.5 hours per night. Leak is 31 L/minute. Apnea-hypopnea index 12.6 and central apnea index 6.4 for the last month and for the last 6 months, index 12.7 with a central index 7.4. IMPRESSION: 1. Obstructive sleep apnea-hypopnea syndrome. Patient demonstrated borderline compliance with treatment. Reading from the machine still showed some abnormalities of respiration including central apneas. 2. Hypertension. 3. History of atrial fibrillation. 4. Status post nasal septoplasty. 5. Hypothyroidism. 6. Status post several pneumonias. 7. Status post several esophageal surgeries. 8. Status post cholecystectomy. 9. Status post splenectomy. 10.History of depression. 11.History of sinusitis. PLAN: 1. I adjusted CPAP unit posttraumatic regimen range of the pressure 5-13. 2. Patient should continue to use her CPAP equipment every night for the whole night. 3. Prescription for CPAP supplies, including full-face mask. 4. Precautions related to driving. No driving if feeling sleepiness. 5. I will see patient for followup visit in about 3 months to re-evaluate her compliance with treatment and activity of CPAP treatment with automatic regimen. If the patient will continue to have abnormalities of respiration, she will be a candidate for CPAP if necessary, BiPAP titration with an ST mode for correction of the central and obstructive apneas. Thank you very much for allowing me to participate in management of your patient. Sincerely, Cholo Nielsen MD, PhD, FAASM Diplomat of [employer] Install[employer] of [facility] [place] MMODL / IJN: [id number] /
== END | disposition home or self-care (01) ==
LOC: SLEEP 11:02
PROVIDERS: ATTEND Internal Medicine
DX: G47.33 Obstructive sleep apnea (adult) (pediatric) (principal); I10 Essential (primary) hypertension; E03.9 Hypothyroidism, unspecified; Z90.49 Acquired absence of other specified parts of digestive tract; Z79.899 Other long term (current) drug therapy; Z79.01 Long term (current) use of anticoagulants; Z87.01 Personal history of pneumonia (recurrent); Z87.448 Personal history of other diseases of urinary system; Z86.59 Personal history of other mental and behavioral disorders; Z86.79 Personal history of other diseases of the circulatory system; Z87.09 Personal history of other diseases of the respiratory system
CPT/HCPCS: 99211

== ENCOUNTER → 2020-03-12 | Outpatient (CLI) | payer MEDICARE ==
[2020-03-12 14:55] VITALS: BP 117/73; PULSE 70; RESP 18; TEMP 98.2
--- NOTE | 2020-03-12 17:48 | P.HPOB ---
History of Present Illness H&P Date: 03/12/20 Chief Complaint: The patient is here for her routine gynecologic exam and ma mmogram. This is a 64-year-old with an LMP of approximately 2000. She is here to establish with this office. Her last pelvic exam was about 1 year ago. The patient is without gynecologic complaints and denies any postmenopausal bleeding. Review of Systems Her weight has been stable.. She denies respiratory, cardiac and G.I. problems. She denies maltreatment or problems with falling. : She has been experiencing more urinary incontinence. She has a history of stress urinary incontinence treated with a sling procedure done by Dr. Mims and she plans on seeing him in the near future for her incontinence. Past Medical History Past Medical History: Fibromyalgia, GERD/Reflux, Hypertension, Neurologic Disorder, Osteoarthritis (OA), Pneumonia, Seizure Disorder, Sleep Apnea/CPAP/BIPAP, Thyroid Disorder Additional Past Medical History / Comment(s): Migraines, past ETOH abuse but no alcohol since 1996, seizure associated with alcohol withdrawal around 1996, small bowel ileus, RLS, arthritis multiple joints, hypothyroid, pneumonia (September 2018), scoliosis, sees chiropractor. Sinus problems with seasonal ALLERGIES. IBS. Osteopenia. PAST PR[employer]ED [employer]IP[employer]ER HISTORY: She has no history of STDs. History of Any Multi-Drug Resistant Organisms: None Reported Past Surgical History: Bladder Surgery, Cholecystectomy, Orthopedic Surgery, Tubal Ligation Additional Past Surgical History / Comment(s): edmond fundloplasty then takedown which pt states involved her pancreas, pubovaginal sling, bilateral carpal tunnel releases, L knee ligament release, bilateral feet bunionectomy/reconstruction, several trigger fingers/toes, EGD with dilation, colonoscopy 2016(next after 10yr), spleenectomy. Bunionectomy. Wrist surgery. Past Anesthesia/Blood Transfusion Reactions: No Reported Reaction Past Psychological History: Anxiety, Bipolar Additional Psychological History / Comment(s): states hx psycosis. Smoking Status: Never smoker Past Alcohol Use History: Abuse (Has not drank since 1996.) Additional Past Alcohol Use History / Comment(s): recovered alcoholic 1996. Past Drug Use History: None Reported Additional History: She has been since age 16. She is retired. - Past Family History Father Family Medical History: CVA/TIA, Myocardial Infarction ([place]) Additional Family Medical History / Comment(s): Paternal grandmother had breast cancer. Mother Family Medical History: Cancer, Congestive Heart Failure (CHF) Additional Family Medical History / Comment(s): pulmonary edema. Mother of lung cancer and CHF. Sister(s) Family Medical History: Diabetes Mellitus, Myocardial Infarction ([place]) Medications and Allergies Home Medications Medication Instructions Recorded Confirmed Type LORazepam [Lorazepam] 1 mg PO TID PRN 05/04/14 03/12/20 History Zolpidem [Ambien] 10 mg PO HS PRN 02/05/17 03/12/20 History Cholecalciferol [Vitamin D3 (25 2,000 unit PO DAILY 01/15/18 03/12/20 History Mcg = 1000 Iu)] Ferrous Sulfate [Iron] 325 mg PO DAILY 01/15/18 03/12/20 History OXcarbazepine [Trileptal] 300 mg PO BID 01/15/18 03/12/20 History QUEtiapine [SEROquel] 300 mg PO HS PRN 01/15/18 03/12/20 History SUMAtriptan succinate [Imitrex] 100 mg PO DIRECTED PRN 01/15/18 03/12/20 History Levothyroxine Sodium [Synthroid] 75 mcg PO DAILY 08/22/18 03/12/20 History Aspirin EC [Ecotrin Low Dose] 81 mg PO DAILY #30 tablet. 08/24/18 03/12/20 Rx Losartan [Cozaar] 25 mg PO DAILY 09/27/18 03/12/20 History amLODIPine [Norvasc] 5 mg PO DAILY 09/27/18 03/12/20 History Apixaban [Eliquis] 5 mg PO BID #60 tab 09/28/18 03/12/20 Rx Atorvastatin [Lipitor] 40 mg PO HS 02/20/19 03/12/20 History Biotin 10,000 mcg PO DAILY 02/20/19 03/12/20 History Calcium Carbonate [Calcium] 800 mg PO DAILY 02/20/19 03/12/20 History Magnesium (Unknown Dose) 1 tab PO DAILY 02/20/19 03/12/20 History Vitamin B Complex 1 each PO DAILY 02/20/19 03/12/20 History Vitamin E With Fish Oil 1 tab PO DAILY 02/20/19 03/12/20 History Dicyclomine [Bentyl] 10 mg PO TID 03/12/20 03/12/20 History Esomeprazole Magnesium [NexIUM] 40 mg PO DAILY PRN 03/12/20 03/12/20 History Fexofenadine HCl [Rose Allergy] 180 mg PO DAILY PRN 03/12/20 03/12/20 History Ketoconazole/Hydrocortisone 1 applic TOPICAL DAILY 03/12/20 03/12/20 History [Hydrocort 2.5%-Ketoconazole 2%] Melatonin 10 mg PO HS PRN 03/12/20 03/12/20 History Ondansetron Odt [Zofran Odt] 4 mg PO Q12HR PRN 03/12/20 03/12/20 History hydrALAZINE HCL 25 mg PO HS 03/12/20 03/12/20 History traMADol HCL [Ultram] 50 mg PO Q4HR PRN 03/12/20 03/12/20 History Allergies Allergy/AdvReac Type Severity Reaction Status Date / Time codeine AdvReac Nausea Verified 03/12/20 14:49 trazodone AdvReac NIGHTMARES Verified 03/12/20 14:49 Exam Vital Signs Temp Pulse Resp BP Pulse Ox 03/12/20 14:51 98.2 F 70 18 117/73 94 L Intake and Output 03/12/20 03/12/20 03/12/20 06:59 14:59 22:59 Other: Weight 78.925 kg Height 5 feet 1 inch, weight 174 pounds, BMI 32.9. This is a well-developed well-nourished white female who is alert and oriented times 3 in no acute distress. HEENT: Within normal limits. NECK: Supple without mass or thyromegaly. CHEST AND LUNGS: Clear to auscultation. HEART: Regular rate and rhythm. BREASTS: Are without mass or discharge. AXILLARY EXAM: Negative for adenopathy. BACK: Negative for CVA tenderness. ABDOMEN: Soft, nontender, without palpable masses. PELVIC EXAM: Normal external genitalia with mild atrophy. Cervix and vagina appear normal with mild atrophy. There is no unusual discharge. There is no evidence of prolapse. The uterus is midposition, nongravid size and nontender. There are no palpable adnexal masses or tenderness. RECTAL EXAM: Rectovaginal exam is negative for mass or tenderness and is negative for occult blood. EXTREMITIES: Nontender. IMPRESSION: 1. 64-year-old menopausal female with normal gynecologic exam. 2. History of osteopenia. PLAN: 1. Pap smear was performed. She has signed a records release to obtain her previous for Pap smears from Dr. Hall's office. Dr. Hall was her prior PCP where she had her pelvic exam is done. After reviewing those Pap smears and her current Pap smear, we will determine if we can discontinue her Pap smears for cervical screening. 2. Self breast awareness was discussed with the patient. 3. Screening mammogram will be done today. 4. Osteoporosis prevention was discussed. I have stressed the importance of adequate calcium, vitamin D and regular exercise. Recommended amounts of calcium and vitamin D were also discussed. We will plan on repeating bone density testing in 1 year. 5. She did receive her flu shot this past fall. 6. She will follow up with her urologist for urinary incontinence. 7. She was advised to return in one year for her annual well woman exam.
--- NOTE | 2020-03-13 13:46 | MM ---
Reason for exam: screening (asymptomatic). Last mammogram was performed 1 year ago. History: Patient is postmenopausal. Family history of breast cancer in sister at age 57 and breast cancer in grandmother. Benign excisional biopsy of the right breast, October 29, 2000. Took hormonal contraceptives for 4 years beginning at age 9. Physical Findings: A clinical breast exam by your physician is recommended on an annual basis and results should be correlated with mammographic findings. MG 3D Screening Mammo W/Cad Bilateral CC and MLO view(s) were taken. Prior study comparison: March 03, 2019, bilateral MG 3d screening mammo w/cad. January 20, 2018, bilateral MG 3d screening mammo w/cad. There are scattered fibroglandular densities. Previous mammotome biopsy in the right breast. 5mm anterior left CC view nodularity is more defined. Otherwise, no significant change. ASSESSMENT: Incomplete: need additional imaging evaluation, BI-RAD 0 RECOMMENDATION: Special view mammogram of the left breast. (3D) If lesion persists on supplemental views, image directed ultrasound is recommended. [facility] will attempt to contact patient to return for supplemental views and ultrasound if indicated.
== END | disposition home or self-care (01) ==
LOC: WWCWWP 14:00
PROVIDERS: ATTEND Obstetrics & Gynecology
DX: Z12.31 Encounter for screening mammogram for malignant neoplasm of breast (principal)
CPT/HCPCS: 77063; 77067

== ENCOUNTER → 2020-03-15 | Outpatient (CLI) | payer MEDICARE ==
--- NOTE | 2020-03-15 11:21 | MM ---
Reason for exam: additional evaluation requested from abnormal screening. Last mammogram was performed less than 1 month ago. History: Patient is postmenopausal. Family history of breast cancer in sister at age 57 and breast cancer in grandmother. Benign excisional biopsy of the right breast, October 29, 2000. Took hormonal contraceptives for 4 years beginning at age 9. Physical Findings: Nurse did not find any significant physical abnormalities on exam. MG 3D Work Up W/Cad LT Spot compression CC, spot compression MLO, and ML view(s) were taken of the left breast. Prior study comparison: March 12, 2020, bilateral MG 3d screening mammo w/cad. March 03, 2019, bilateral MG 3d screening mammo w/cad. There are scattered fibroglandular densities. There is no discrete abnormality. These results were verbally communicated with the patient and result sheet given to the patient on 03/15/20. ASSESSMENT: Negative, BI-RAD 1 RECOMMENDATION: Return to routine screening mammogram schedule for both breasts.
== END | disposition home or self-care (01) ==
LOC: RADMAMWWP 09:33
PROVIDERS: ATTEND Obstetrics & Gynecology
DX: R92.8 Other abnormal and inconclusive findings on diagnostic imaging of breast (principal)
CPT/HCPCS: 77065; G0279; 77061

== ENCOUNTER 2020-03-25 09:12 | Day surgery (SDC) | payer MEDICARE ==
[2020-03-21 13:26] VITALS: BMI 34.0
[~2020-03-25 09:12] MED LIST changes: +LIDOCAINE 1% (10MG/ML) FOR IV START INTRADERMA PRN
[2020-03-25 09:51] VITALS: RESP 16; TEMP 97.6
[2020-03-25] MEDS ORDERED: PROPOFOL 10 MG/ML 20 ML VIAL IV ONE (10:07)
--- NOTE | 2020-03-25 10:50 | P.PCN ---
Date of Procedure: 03/25/20 Description of Procedure: BRIEF HISTORY: Patient is a 64-year-old female who presents for outpatient colonoscopy for evaluation of hemorrhage of the anus and rectum. The patient reports intermittent episodes of bright red blood per rectum. He states that she has been reading and feels her symptoms are suggestive of irritable bowel syndrome. Last colonoscopy 2017 and normal. PROCEDURE PERFORMED: Colonoscopy with biopsy. PREOPERATIVE DIAGNOSIS: Hemorrhage of the anus and rectum, last colonoscopy 2017. ESTIMATED BLOOD LOSS: Minimal. IV sedation per Anesthesia. PROCEDURE: After informed consent was obtained, the patient, was brought into the endoscopy unit. IV sedation was administered by Anesthesia under continuous monitoring. Digital rectal examination was normal. Initially the Olympus CF-190 flexible video colonoscope was then inserted in the rectum, gradually advanced into the cecum without any difficulty. Careful examination was performed as the scope was gradually being withdrawn. Ileocecal valve and the appendiceal orifice were visualized and appeared normal. Prep was excellent. Mucosa of the cecum, ascending colon, transverse colon, descending colon, sigmoid colon, and rectum appeared normal. Random biopsies taken of the right and left colon to rule out inflammatory bowel disease. Retroflexion was performed in the rectum and no lesions were seen, both internal hemorrhoids. The patient tolerated the procedure well. IMPRESSION: Normal-appearing colon from rectum to cecum and normal-appearing terminal ileum. Random biopsies taken of the right and left colon. RECOMMENDATIONS: Findings of this examination were discussed with the patient and her family. Okay to resume diet. Okay to resume medications. Recommend local hemorrhoidal care with warm bath, Tucks pads and local steroid therapy if patient has symptoms of blood per rectum.
[2020-03-25 11:04] VITALS: BP 117/66; PULSE 72
== END 2020-03-25 11:35 | disposition home or self-care (01) ==
LOC: ORWHC2ENDO 09:12
PROVIDERS: ATTEND Internal Medicine
DX: K62.5 Hemorrhage of anus and rectum (principal); I10 Essential (primary) hypertension; I48.91 Unspecified atrial fibrillation; E07.9 Disorder of thyroid, unspecified; F31.9 Bipolar disorder, unspecified; Z79.01 Long term (current) use of anticoagulants; Z79.890 Hormone replacement therapy; Z79.891 Long term (current) use of opiate analgesic; Z79.899 Other long term (current) drug therapy; Z88.5 Allergy status to narcotic agent; Z88.8 Allergy status to other drugs, medicaments and biological substances
CPT/HCPCS: 88305; 45380; J2704

== ENCOUNTER → 2020-05-08 | Outpatient (CLI) | payer MEDICARE ==
--- NOTE | 2020-05-08 20:09 | MR ---
EXAMINATION TYPE: MR brain wo/w con DATE OF EXAM: 05/08/2020 COMPARISON: None HISTORY: Memory loss. CONTRAST: Performed utilizing 7 mL intravenous Gadavist gadolinium contrast. TECHNIQUE: Multiplanar, multiecho imaging on a 3.0 Perla magnet is performed through the brain. Stud y is performed within 24 hours of arrival to the hospital. The craniovertebral junction is normal. The pituitary is normal. Diffusion-weighted imaging is performed. No abnormal hyperintensity is present to suggest an acute i ntracranial infarct or acute ischemic change. There is some periventricular hyperintensities adjacent to the left lateral ventricle measuring 0.5 a nd 0.6 cm. Smaller areas over the right lateral ventricle. Findings are nonspecific. Microvascular is chemic change could be considered. Multiple sclerosis would be within the differential. Ventricles and sulci are appropriate for the patient age. There is mucosal thickening through the right maxillary sinus. Remaining paranasal sinuses and mastoi d air cells are clear. Following contrast, no abnormal enhancement is evident. Venous angiomas likely within the right front al region IMPRESSIONS: 1. Chronic appearing Periventricular white matter ischemic type changes. 2. Correlate for chronic right maxillary sinusitis
== END | disposition home or self-care (01) ==
LOC: RADMRIMAIN 16:45
PROVIDERS: ATTEND Psychiatry & Neurology Neurology
DX: I67.82 Cerebral ischemia (principal)
CPT/HCPCS: 70553; A9585

== ENCOUNTER → 2020-05-10 | Outpatient (CLI) | payer MEDICARE ==
[2020-05-10 23:19] LABS: Non-African American GFR(CKD) 76.8 (60.0-200.0)
[2020-05-10 23:34] LABS: Folate, Serum 19.8 ng/mL
== END | disposition home or self-care (01) ==
LOC: LABWHC1 11:22
PROVIDERS: ATTEND Psychiatry & Neurology Neurology
DX: G30.0 Alzheimer's disease with early onset (principal)
CPT/HCPCS: 36415; 82565; 82607; 82746; 84520

== ENCOUNTER 2020-07-23 08:50 | Day surgery (SDC) | payer MEDICARE ==
[2020-07-22 09:23] VITALS: BMI 34.0
[2020-07-23 09:10] VITALS: TEMP 97.3
[2020-07-23] MEDS ORDERED: PROPOFOL 10 MG/ML 20 ML VIAL IV ONE (09:34)
[2020-07-23] MEDS ORDERED: LIDOCAINE 1% INJ 10MG/ML (20 ML MDV) ONE (09:34)
--- NOTE | 2020-07-23 10:06 | P.PCN ---
Date of Procedure: 07/23/20 Description of Procedure: BRIEF HISTORY: Patient is a 64-year-old female presenting for outpatient esophagogastroduodenoscopy for evaluation of esophageal obstruction. Patient has previously undergone EGD with dilation. She is status post Sveta fundoplication in the past. She reports intermittent solid food dysphagia. PROCEDURE PERFORMED: Esophagogastroduodenoscopy with biopsy and fwjagez-abd-chppp balloon dilation of the esophagus. PREOPERATIVE DIAGNOSIS: Esophageal stricture, GERD. ESTIMATED BLOOD LOSS: Minimal. IV sedation per anesthesia. PROCEDURE: After informed consent was obtained, the patient was brought into the endoscopy unit. IV sedation was administered by Anesthesia under continuous monitoring. Initially the Olympus GIF-190 video endoscope was inserted into the mouth. Esophagus intubated without any difficulty. It was gradually advanced into the stomach and duodenum and carefully examined. The bulb and the second part of the duodenum appeared normal, with biopsies taken. The scope at this time was withdrawn to the stomach, adequately insufflated with air, and upon careful examination, mucosa of the antrum, body, cardia and the fundus appeared normal, except for some mild scattered erythema in the antrum and body suggestive of mild gastritis with biopsies. The scope was then withdrawn into the esophagus. The GE junction was located at 36 cm from the incisors, with a small 2 cm hiatal hernia noted as well as a benign-appearing distal esophageal stricture serially dilated with a hfimvyg-ivu-nqonk balloon dilator up to [phone] mm. The esophagus appeared normal. There were no erosions or ulcerations seen and the patient tolerated the procedure well. IMPRESSION: 1. Benign-appearing distal esophageal stricture serially dilated with wyvmdtg-hxp-qwgtr balloon dilator. 2. Mild gastritis. 3. Small hiatal hernia. 4. Biopsies of the duodenum, antrum and body. RECOMMENDATIONS: The findings of this examination were discussed with the patient and her family. Okay to resume diet. Okay to resume medications. Await pathology from biopsies. Follow up in the GI clinic as scheduled..
[2020-07-23 10:18] VITALS: PULSE 77
[2020-07-23 10:39] VITALS: BP 122/74; RESP 14
== END 2020-07-23 10:39 | disposition home or self-care (01) ==
LOC: ORWHC2ENDO 08:50
PROVIDERS: ATTEND Internal Medicine
DX: K22.2 Esophageal obstruction (principal); K44.9 Diaphragmatic hernia without obstruction or gangrene; K29.50 Unspecified chronic gastritis without bleeding; Z90.49 Acquired absence of other specified parts of digestive tract; Z98.42 Cataract extraction status, left eye; Z98.41 Cataract extraction status, right eye; Z98.890 Other specified postprocedural states; I10 Essential (primary) hypertension; I48.91 Unspecified atrial fibrillation; G47.33 Obstructive sleep apnea (adult) (pediatric); E07.9 Disorder of thyroid, unspecified; G89.29 Other chronic pain; K21.9 Gastro-esophageal reflux disease without esophagitis; R56.9 Unspecified convulsions; Z79.890 Hormone replacement therapy; Z79.891 Long term (current) use of opiate analgesic; Z79.899 Other long term (current) drug therapy; Z79.84 Long term (current) use of oral hypoglycemic drugs; Z79.82 Long term (current) use of aspirin; Z88.5 Allergy status to narcotic agent; Z88.8 Allergy status to other drugs, medicaments and biological substances
CPT/HCPCS: 88305; 43239; 43249; J2001; J2704; C1726 ×2

== ENCOUNTER 2021-01-21 00:01 | Emergency (ER) | payer MEDICARE ==
--- NOTE | 2021-01-21 00:46 | ED ---
Chest Pain HPI - General Chief Complaint: Chest Pain Stated Complaint: SOB, chest pain Time Seen by Provider: 01/21/21 00:30 Source: patient Mode of arrival: ambulatory Limitations: no limitations - Related Data Home Medications Medication Instructions Recorded Confirmed LORazepam [Lorazepam] 1 mg PO TID 05/04/14 07/23/20 Zolpidem [Ambien] 10 mg PO HS PRN 02/05/17 07/23/20 Cholecalciferol [Vitamin D3 (25 2,000 unit PO DAILY 01/15/18 07/23/20 Mcg = 1000 Iu)] Ferrous Sulfate [Iron] 325 mg PO DAILY 01/15/18 07/23/20 QUEtiapine [SEROquel] 300 mg PO HS 01/15/18 07/23/20 SUMAtriptan succinate [Imitrex] 100 mg PO DIRECTED PRN 01/15/18 07/23/20 Levothyroxine Sodium [Synthroid] 75 mcg PO DAILY 08/22/18 07/23/20 amLODIPine [Norvasc] 5 mg PO HS 09/27/18 07/23/20 Atorvastatin [Lipitor] 40 mg PO HS 02/20/19 07/23/20 Calcium Carbonate [Calcium] 600 mg PO DAILY 02/20/19 07/23/20 Vitamin B Complex 1 each PO DAILY 02/20/19 07/23/20 Dicyclomine [Bentyl] 10 mg PO DIRECTED 03/12/20 07/23/20 Ondansetron Odt [Zofran Odt] 4 mg PO DIRECTED PRN 03/12/20 07/23/20 hydrALAZINE HCL 25 mg PO BID 03/12/20 07/23/20 traMADol HCL [Ultram] 50 mg PO QID PRN 03/12/20 07/23/20 Hydrocortisone Cream 1 applic TOPICAL DIRECTED 03/21/20 07/23/20 [Hydrocortisone 2.5% Cream] Losartan [Cozaar] 50 mg PO HS 03/21/20 07/23/20 OXcarbazepine [Trileptal] 300 mg PO HS 03/21/20 07/23/20 Beet Root 1,000 mg PO DAILY 07/22/20 07/23/20 Biotin [Biotin Disolve] 5,000 mcg PO DAILY 07/22/20 07/23/20 Levocetirizine Dihydrochloride 5 mg PO DAILY 07/22/20 07/23/20 Magnesium 250 mg PO DAILY 07/22/20 07/23/20 Mct Oil 1,000 mg PO DAILY 07/22/20 07/23/20 Metoprolol Succinate (ER) [Toprol 25 mg PO DAILY 07/22/20 07/23/20 Xl] Niacin 500 mg PO DAILY 07/22/20 07/23/20 [place]-3 Fatty Acids [[place]-3] 1,000 mg PO DAILY 07/22/20 07/23/20 Omeprazole 40 mg PO DAILY 07/22/20 07/23/20 Turmeric Root Extract [Turmeric] 500 mg PO DAILY 07/22/20 07/23/20 Vit C/E/Zn/Coppr/Lutein/Zeaxan 1 each PO DAILY 07/22/20 07/23/20 [Preservision Areds 2 Softgel] Previous Rx's Medication Instructions Recorded Aspirin EC [Ecotrin Low Dose] 81 mg PO DAILY #30 tablet. 08/24/18 Apixaban [Eliquis] 5 mg PO BID #60 tab 09/28/18 Allergies Allergy/AdvReac Type Severity Reaction Status Date / Time codeine AdvReac Nausea Verified 01/21/21 00:05 trazodone AdvReac NIGHTMARES Verified 01/21/21 00:05 Review of Systems ROS Statement: Those systems with pertinent positive or pertinent negative responses have been documented in the HPI. ROS Other: All systems not noted in ROS Statement are negative. EKG Findings - EKG Results: EKG: interpreted by CURTIS, sinus rhythm, normal axis, normal QRS, normal ST/T EKG shows: tachycardia (Rate 110 bpm) Past Medical History Past Medical History: Atrial Fibrillation, Fibromyalgia, GERD/Reflux, Hypertension, Neurologic Disorder, Osteoarthritis (OA), Pneumonia, Seizure Disorder, Sleep Apnea/CPAP/BIPAP, Thyroid Disorder Additional Past Medical History / Comment(s): Migraines, past ETOH abuse but no alcohol since prior 1996, seizure associated with alcohol withdrawal prior 1996, small bowel ileus, RLS, arthritis multiple joints, hypothyroid, scoliosis, sees chiropractor. Sinus problems with seasonal ALLERGIES. IBS. Osteopenia. , states having problems swallowing meat and pills- states hx of EGD with dilation. History of Any Multi-Drug Resistant Organisms: None Reported Past Surgical History: Bladder Surgery, Cholecystectomy, Orthopedic Surgery, Tubal Ligation Additional Past Surgical History / Comment(s): demond fundloplasty then takedown which pt states involved her pancreas, pubovaginal sling, bilateral carpal tunnel releases, L knee ligament release, bilateral feet bunionectomy/reconstruction, several trigger fingers/toes, EGD with dilation, colonoscopy, spleenectomy. Bunionectomy. Wrist surgery. Past Anesthesia/Blood Transfusion Reactions: No Reported Reaction Past Psychological History: Anxiety, Bipolar Smoking Status: Never smoker Past Alcohol Use History: Abuse Past Drug Use History: None Reported - Past Family History Sister(s) Family Medical History: Cancer Additional Family Medical History / Comment(s): breast cancer Mother Family Medical History: Cancer Additional Family Medical History / Comment(s): lung cancer General Exam Limitations: no limitations Course Vital Signs 01/21/21 01/21/21 01/21/21 00:01 01:47 02:46 Temperature 99.9 F H Pulse Rate 91 88 103 H Respiratory 22 16 18 Rate Blood Pressure 140/63 135/77 117/55 O2 Sat by Pulse 97 93 L 94 L Oximetry Disposition Clinical Impression: COVID-19 Disposition: HOME SELF-CARE Condition: Fair Instructions (If sedation given, give patient instructions): Coronavirus Disease 2019 (COVID-19) Is patient prescribed a controlled substance at d/c from ED?: No Referrals: Dima Bryson MD [Primary Care Provider] - 1-2 days
--- NOTE | 2021-01-21 00:51 | XR ---
EXAMINATION TYPE: XR chest 2V DATE OF EXAM: 01/21/2021 COMPARISON: 01/02/2020 TECHNIQUE: PA and lateral views submitted. HISTORY: Chest pain FINDINGS: The lungs are clear and there is no pneumothorax, pleural effusion, or focal pneumonia. Arthropathy shoulders and diffuse osteopenia. Coarsened interstitium. Heart size normal. Degenerative changes sp ine. Surgical clips in the abdomen. IMPRESSION: 1. COPD correlate for chronic interstitial lung disease..
[2021-01-21 01:27] LABS: Basophils # (A) 0.1 k/uL (0-0.2); Basophils % (A) 1 %; Eosinophils # (A) 0.2 k/uL (0-0.7); Eosinophils % (A) 2 %; HCT 46.1 % (34.0-46.0); HGB 14.8 gm/dL (11.4-16.0); Lymphocytes # (A) 0.5 k/uL (1.0-4.8); Lymphocytes % (A) 6 %; MCH 30.8 pg (25.0-35.0); MCHC 32.2 g/dL (31.0-37.0); MCV 95.5 fL (80.0-100.0); Mean Platelet Volume 8.2; Monocytes # (A) 0.5 k/uL (0-1.0); Monocytes % (A) 6 %; Neutrophils # (A) 7.4 k/uL (1.3-7.7); Neutrophils % (A) 84 %; Platelet Count 285 k/uL (150-450); RBC 4.83 m/uL (3.80-5.40); RDW 13.2 % (11.5-15.5); WBC 8.8 k/uL (3.8-10.6)
[2021-01-21 01:37] LABS: Albumin 4.5 g/dL (3.5-5.0); Calcium 9.5 mg/dL (8.4-10.2); Magnesium 2.1 mg/dL (1.6-2.3); Potassium 4.4 mmol/L (3.5-5.1); Total Bilirubin 0.4 mg/dL (0.2-1.3); Total Protein 7.7 g/dL (6.3-8.2)
[2021-01-21 01:53] LABS: INR 0.9 (<1.2); Prothrombin Time 9.5 sec (9.0-12.0)
[2021-01-21 01:56] LABS: Partial Thromboplastin Time 19.6 sec (22.0-30.0)
[2021-01-21] MEDS ORDERED: CASIRIVIMAB (REGN10933) (EUA) 600 MG, IMDEVIMAB (REGN10987) (EUA) 600 MG in SODIUM CHLO... IVPB ONE (02:30)
[2021-01-21] MEDS ORDERED: SODIUM CHLORIDE 0.9% 50 ML IVPB ONE (02:30)
[2021-01-21 02:47] VITALS: RESP 18
[2021-01-21] MEDS ORDERED: ACETAMINOPHEN TAB 325 MG TAB PO STA (04:11)
[2021-01-21 04:31] VITALS: BP 124/61; PULSE 96; TEMP 102.2
== END 2021-01-21 04:22 | disposition home or self-care (01) ==
LOC: EC 00:01
DX: U07.1 COVID-19 (principal); I10 Essential (primary) hypertension; I48.91 Unspecified atrial fibrillation; K21.9 Gastro-esophageal reflux disease without esophagitis; M19.90 Unspecified osteoarthritis, unspecified site; E07.9 Disorder of thyroid, unspecified; F41.9 Anxiety disorder, unspecified; F31.9 Bipolar disorder, unspecified; Z79.82 Long term (current) use of aspirin; Z79.01 Long term (current) use of anticoagulants; Z88.5 Allergy status to narcotic agent; Z90.49 Acquired absence of other specified parts of digestive tract; Z98.51 Tubal ligation status
CPT/HCPCS: 36415; 71046; 80053; 83735; 84484; 85025; 85610; 85730; 87635; 93005; 99285

== ENCOUNTER → 2021-03-18 | Outpatient (CLI) | payer MEDICARE | END | disposition home or self-care (01) | LOC: RADXRMAIN 07:17 | PROVIDERS: ATTEND Internal Medicine | DX: Z53.9 Procedure and treatment not carried out, unspecified reason (principal) ==

== ENCOUNTER 2021-04-03 14:44 | Emergency (ER) | payer MEDICARE ==
[2021-04-03 15:08] VITALS: RESP 16; TEMP 98.6
[2021-04-03 15:41] LABS: Basophils % (A) 0 %; Eosinophils # (A) 0.2 k/uL (0-0.7); Eosinophils % (A) 3 %; HCT 43.9 % (34.0-46.0); HGB 14.3 gm/dL (11.4-16.0); Lymphocytes # (A) 2.4 k/uL (1.0-4.8); Lymphocytes % (A) 38 %; MCH 30.8 pg (25.0-35.0); MCHC 32.6 g/dL (31.0-37.0); MCV 94.7 fL (80.0-100.0); Mean Platelet Volume 7.9; Monocytes # (A) 0.6 k/uL (0-1.0); Monocytes % (A) 9 %; Neutrophils # (A) 3.1 k/uL (1.3-7.7); Neutrophils % (A) 48 %; Platelet Count 340 k/uL (150-450); RBC 4.64 m/uL (3.80-5.40); RDW 13.7 % (11.5-15.5); WBC 6.5 k/uL (3.8-10.6)
--- NOTE | 2021-04-03 15:41 | ED ---
Chest Pain HPI - General Chief Complaint: Chest Pain Stated Complaint: Chest Pain Time Seen by Provider: 04/03/21 15:05 Source: patient, RN notes reviewed Mode of arrival: ambulatory Limitations: no limitations - History of Present Illness Initial Comments: 65-year-old female presents with complaints of sharp left-sided chest pain she's had it 1 week off and on worse today. She's had intermittent episodes of this pain is sharp going on for quite a bit of time today but stopped about one hour ago. It radiates to the lower end of her left shoulder blade when it is there. Nothing makes it better nothing makes it worse she does have some exertional dyspnea also. No fevers chills nausea vomiting sweats no other modifying factors at this time she does have a family history of heart disease she has personal history of A. fib and hypertension MD Complaint: chest pain - Related Data Home Medications Medication Instructions Recorded Confirmed LORazepam [Lorazepam] 1 mg PO TID PRN 05/04/14 04/03/21 Zolpidem [Ambien] 10 mg PO HS PRN 02/05/17 04/03/21 QUEtiapine [SEROquel] 300 mg PO HS 01/15/18 04/03/21 Levothyroxine Sodium [Synthroid] 75 mcg PO DAILY 08/22/18 04/03/21 amLODIPine [Norvasc] 5 mg PO HS 09/27/18 04/03/21 hydrALAZINE HCL 25 mg PO DAILY PRN 03/12/20 04/03/21 Hydrocortisone Cream 1 applic TOPICAL DAILY 03/21/20 04/03/21 [Hydrocortisone 2.5% Cream] Losartan [Cozaar] 50 mg PO DAILY 03/21/20 04/03/21 OXcarbazepine [Trileptal] 600 mg PO HS 03/21/20 04/03/21 Atorvastatin [Lipitor] 40 mg PO DAILY 04/03/21 04/03/21 Dicyclomine HCl 20 mg PO TID 04/03/21 04/03/21 Esomeprazole Magnesium [NexIUM] 40 mg PO DAILY 04/03/21 04/03/21 Fexofenadine HCl [Rose Allergy] 180 mg PO DAILY PRN 04/03/21 04/03/21 HYDROcodone/APAP 5-325MG [Sarepta 1 tab PO QID PRN 04/03/21 04/03/21 5-325] Melatonin 10 mg PO HS PRN 04/03/21 04/03/21 SUMAtriptan SUCCINATE [Imitrex] 100 mg PO DAILY PRN 04/03/21 04/03/21 hydrALAZINE HCL [Apresoline] 25 mg PO HS 04/03/21 04/03/21 Previous Rx's Medication Instructions Recorded Aspirin EC [Ecotrin Low Dose] 81 mg PO DAILY #30 tablet. 08/24/18 Apixaban [Eliquis] 5 mg PO BID #60 tab 09/28/18 Allergies Allergy/AdvReac Type Severity Reaction Status Date / Time codeine AdvReac Nausea Verified 04/03/21 15:56 trazodone AdvReac NIGHTMARES Verified 04/03/21 15:56 Review of Systems ROS Statement: Those systems with pertinent positive or pertinent negative responses have been documented in the HPI. ROS Other: All systems not noted in ROS Statement are negative. EKG Findings - EKG Results: EKG: interpreted by NLALELY ACEVEDO, sinus rhythm, normal axis, normal QRS, normal ST/T, no acute changes (Normal sinus rhythm a 75 appear interval 182 QRS duration 90 daily since QTC 346/[address]-T wave changes) Past Medical History Past Medical History: Atrial Fibrillation, Fibromyalgia, GERD/Reflux, Hypertension, Neurologic Disorder, Osteoarthritis (OA), Pneumonia, Seizure Disorder, Sleep Apnea/CPAP/BIPAP, Thyroid Disorder Additional Past Medical History / Comment(s): Migraines, past ETOH abuse but no alcohol since prior 1996, seizure associated with alcohol withdrawal prior 1996, small bowel ileus, RLS, arthritis multiple joints, hypothyroid, scoliosis, sees chiropractor. Sinus problems with seasonal ALLERGIES. IBS. Osteopenia. , states having problems swallowing meat and pills- states hx of EGD with dilation. History of Any Multi-Drug Resistant Organisms: None Reported Past Surgical History: Bladder Surgery, Cholecystectomy, Orthopedic Surgery, Tubal Ligation Additional Past Surgical History / Comment(s): edmond fundloplasty then takedown which pt states involved her pancreas, pubovaginal sling, bilateral carpal tunnel releases, L knee ligament release, bilateral feet bunionectomy/reconstruction, several trigger fingers/toes, EGD with dilation, colonoscopy, spleenectomy. Bunionectomy. Wrist surgery. Past Anesthesia/Blood Transfusion Reactions: No Reported Reaction Past Psychological History: Anxiety, Bipolar Smoking Status: Never smoker Past Alcohol Use History: Abuse Past Drug Use History: None Reported - Past Family History Sister(s) Family Medical History: Cancer Additional Family Medical History / Comment(s): breast cancer Mother Family Medical History: Cancer Additional Family Medical History / Comment(s): lung cancer General Exam - General Exam Comments Initial Comments: This is a well-developed well-nourished awake alert oriented 3 female Limitations: no limitations General appearance: anxious Head exam: Present: atraumatic, normocephalic, normal inspection Eye exam: Present: normal appearance, PERRL, EOMI. Absent: scleral icterus, conjunctival injection, periorbital swelling ENT exam: Present: normal exam, mucous membranes moist Neck exam: Present: normal inspection, full ROM, other. Absent: tenderness, meningismus, lymphadenopathy Respiratory exam: Present: normal lung sounds bilaterally. Absent: respiratory distress, wheezes, rales, rhonchi, stridor, chest wall tenderness (No stridor or bruits) Cardiovascular Exam: Present: regular rate, normal rhythm, normal heart sounds. Absent: systolic murmur, diastolic murmur, rubs, gallop, clicks GI/Abdominal exam: Present: soft, normal bowel sounds. Absent: distended, tenderness, guarding, rebound, rigid Extremities exam: Present: normal inspection, full ROM, normal capillary refill. Absent: tenderness, pedal edema, joint swelling, calf tenderness Back exam: Present: normal inspection Neurological exam: Present: alert, oriented X3, CN II-XII intact Psychiatric exam: Present: normal affect, normal mood Skin exam: Present: warm, dry, intact, normal color. Absent: rash Course Vital Signs 04/03/21 15:02 Temperature 98.6 F Pulse Rate 74 Respiratory 16 Rate Blood Pressure 153/93 O2 Sat by Pulse 94 L Oximetry Chest Pain MDM - MDM Imaging reviewed no acute findings I did have a long discussion with the patient the presentation appears be consistent with costochondritic strain we did discuss this all imaging is negative as well as lab work patient will be discharged Disposition Clinical Impression: Costochondritis, Chest wall syndrome Disposition: HOME SELF-CARE Condition: Good Instructions (If sedation given, give patient instructions): Costochondritis (ED) Additional Instructions: [id number] Tylenol or Advil for pain Is patient prescribed a controlled substance at d/c from ED?: No Referrals: Dima Bryson MD [Primary Care Provider] - 1-2 days
[2021-04-03 15:53] LABS: Albumin 4.4 g/dL (3.5-5.0); Potassium 4.5 mmol/L (3.5-5.1); Total Bilirubin 0.3 mg/dL (0.2-1.3); Total Protein 7.4 g/dL (6.3-8.2)
[2021-04-03 15:55] LABS: INR 0.9 (<1.2); Prothrombin Time 9.9 sec (9.0-12.0)
--- NOTE | 2021-04-03 15:58 | XR ---
EXAMINATION TYPE: XR chest 2V DATE OF EXAM: 04/03/2021 COMPARISON: 01/21/2021 HISTORY: 65-year-old female with chest pain TECHNIQUE: PA and lateral views FINDINGS: Heart normal size. Aorta and pulmonary vasculature within normal limits. Strandy atelectasis lower quyen ngs. Hyperinflation. Mild interstitial prominence is unchanged. No consolidation or pleural effusion. IMPRESSION: Possible underlying COPD. No acute process seen.
[2021-04-03 17:27] VITALS: BP 148/78; PULSE 66
== END 2021-04-03 17:24 | disposition home or self-care (01) ==
LOC: EC 14:44
DX: M94.0 Chondrocostal junction syndrome [Tietze] (principal); I10 Essential (primary) hypertension; I48.91 Unspecified atrial fibrillation; K21.9 Gastro-esophageal reflux disease without esophagitis; G40.909 Epilepsy, unspecified, not intractable, without status epilepticus; M79.7 Fibromyalgia; M19.90 Unspecified osteoarthritis, unspecified site; E03.9 Hypothyroidism, unspecified; Z79.01 Long term (current) use of anticoagulants; Z79.82 Long term (current) use of aspirin; Z79.899 Other long term (current) drug therapy; Z88.5 Allergy status to narcotic agent; Z79.890 Hormone replacement therapy
CPT/HCPCS: 36415; 71046; 80053; 83690; 83735; 83880; 84484; 85025; 85379; 85610; 85730; 93005; 99285

== ENCOUNTER 2021-04-04 12:08 | Observation (INO) | payer MEDICARE ==
[2021-04-04] MEDS ORDERED: LORazepam 1 MG TAB PO STA (12:52)
[2021-04-04] MEDS ORDERED: ASPIRIN 81 MG PO STA (13:01)
--- NOTE | 2021-04-04 13:01 | ED ---
General Adult HPI - General Chief complaint: Arrhythmia/Palpitations Stated complaint: revisit - palpitations Time Seen by Provider: 04/04/21 12:33 Source: patient Mode of arrival: ambulatory Limitations: no limitations - History of Present Illness Initial comments: Dictation was produced using [employer] dictation software. please excuse any grammatical, word or spelling errors. Chief Complaint: 65-year-old female multiple comorbidities presents to the emergency department for chest pressure History of Present Illness: Patient is 65-year-old female she has past medical history of atrial fibrillation, pneumonia seizure disorder. She was seen here in emergency department yesterday for sharp chest pain. She had blood work done and was discharge. She says that she was diagnosed with costochondritis. Patient states that she felt fine yesterday after being discharged from the emergency department. This morning she woke up with some chest pressure. She localizes it to the substernal area. Nonradiating. Associated with nausea. She reports that she is extensive family history of coronary artery disease. She states that her mother was diagnosed with a heart attack in her 40s. Patient states that she has had stress tests several years ago that was negative. She had she been some of her symptoms to trying to wean herself off of benzodiazepines. Denies any fever. She states that her pain is not reproducible with movement, palpation or deep inspiration. The ROS documented in this emergency department record has been reviewed and confirmed by me. Those systems with pertinent positive or negative responses have been documented in the HPI. All other systems are other negative and/or noncontributory. PHYSICAL EXAM: General Impression: Alert and oriented x3, not in acute distress HEENT: Normocephalic atraumatic, extra-ocular movements intact, pupils equal and reactive to light bilaterally, mucous membranes moist. Cardiovascular: Heart regular rate and rhythm Chest: Able to complete full sentences, no retractions, no tachypnea Abdomen: abdomen soft, non-tender, non-distended, no organomegaly Musculoskeletal: Pulses present and equal in all extremities, no peripheral edema Motor: no focal deficits noted Neurological: CN II-XII grossly intact, no focal motor or sensory deficits noted Skin: Intact with no visualized rashes Psych: Normal affect and mood ED course: 65-year-old female presents to the emergency department for chest pressure. Clinical presentation concerning for acute coronary syndrome. Vital signs upon arrival are within acceptable limits. EKGs benign. No signs of ischemia or infarction. Laboratory evaluation obtained. CBC unremarkable. Coag panel is negative. Metabolic panel is negative. Troponin is normal. Patient reevaluated at bedside at 2:00 PM found to be stable medical condition. She does still complain of some mild chest pressure however unchanged being in the emergency room. Patient given some sublingual nitro. Disposition options were discussed. Patient is agreeable for admission for cardiac monitoring, cardiology consultation and serial troponins. EKG interpretation: Ventricular rate 70, normal sinus rhythm,. 182, QRS 92, QTC 399. No AR prolongation, no QTC prolongation, no ST or T-wave changes noted. EKG compared to 04/03/2021 showing no changes. Overall, this EKG is unremarkable - Related Data Home Medications Medication Instructions Recorded Confirmed LORazepam [Lorazepam] 1 mg PO TID PRN 05/04/14 04/04/21 Zolpidem [Ambien] 10 mg PO HS PRN 02/05/17 04/04/21 QUEtiapine [SEROquel] 300 mg PO HS 01/15/18 04/04/21 Levothyroxine Sodium [Synthroid] 75 mcg PO DAILY 08/22/18 04/04/21 amLODIPine [Norvasc] 5 mg PO HS 09/27/18 04/04/21 hydrALAZINE HCL 25 mg PO DAILY PRN 03/12/20 04/04/21 Hydrocortisone Cream 1 applic TOPICAL DAILY 03/21/20 04/04/21 [Hydrocortisone 2.5% Cream] Losartan [Cozaar] 50 mg PO DAILY 03/21/20 04/04/21 OXcarbazepine [Trileptal] 600 mg PO HS 03/21/20 04/04/21 Atorvastatin [Lipitor] 40 mg PO DAILY 04/03/21 04/04/21 Dicyclomine HCl 20 mg PO TID 04/03/21 04/04/21 Esomeprazole Magnesium [NexIUM] 40 mg PO DAILY 04/03/21 04/04/21 Fexofenadine HCl [Rose Allergy] 180 mg PO DAILY PRN 04/03/21 04/04/21 HYDROcodone/APAP 5-325MG [[place]aver 1 tab PO QID PRN 04/03/21 04/04/21 5-325] Melatonin 10 mg PO HS PRN 04/03/21 04/04/21 SUMAtriptan SUCCINATE [Imitrex] 100 mg PO DAILY PRN 04/03/21 04/04/21 hydrALAZINE HCL [Apresoline] 25 mg PO HS 04/03/21 04/04/21 Previous Rx's Medication Instructions Recorded Aspirin EC [Ecotrin Low Dose] 81 mg PO DAILY #30 tablet. 08/24/18 Apixaban [Eliquis] 5 mg PO BID #60 tab 09/28/18 Allergies Allergy/AdvReac Type Severity Reaction Status Date / Time codeine AdvReac Nausea Verified 04/04/21 13:08 trazodone AdvReac NIGHTMARES Verified 04/04/21 13:08 Review of Systems ROS Statement: Those systems with pertinent positive or pertinent negative responses have been documented in the HPI. ROS Other: All systems not noted in ROS Statement are negative. Past Medical History Past Medical History: Atrial Fibrillation, Fibromyalgia, GERD/Reflux, Hypertension, Neurologic Disorder, Osteoarthritis (OA), Pneumonia, Seizure Disorder, Sleep Apnea/CPAP/BIPAP, Thyroid Disorder Additional Past Medical History / Comment(s): Migraines, past ETOH abuse but no alcohol since prior 1996, seizure associated with alcohol withdrawal prior 1996, small bowel ileus, RLS, arthritis multiple joints, hypothyroid, scoliosis, sees chiropractor. Sinus problems with seasonal ALLERGIES. IBS. Osteopenia. , states having problems swallowing meat and pills- states hx of EGD with dilation. History of Any Multi-Drug Resistant Organisms: None Reported Past Surgical History: Bladder Surgery, Cholecystectomy, Orthopedic Surgery, Tubal Ligation Additional Past Surgical History / Comment(s): edmond fundloplasty then takedown which pt states involved her pancreas, pubovaginal sling, bilateral carpal tunnel releases, L knee ligament release, bilateral feet bunionectomy/reconstruction, several trigger fingers/toes, EGD with dilation, colonoscopy, spleenectomy. Bunionectomy. Wrist surgery. Past Anesthesia/Blood Transfusion Reactions: No Reported Reaction Past Psychological History: Anxiety, Bipolar Smoking Status: Never smoker Past Alcohol Use History: Abuse Past Drug Use History: None Reported - Past Family History Sister(s) Family Medical History: Cancer Additional Family Medical History / Comment(s): breast cancer Mother Family Medical History: Cancer Additional Family Medical History / Comment(s): lung cancer General Exam Limitations: no limitations Course Vital Signs 04/04/21 04/04/21 12:18 12:54 Temperature 98.4 F Pulse Rate 104 H Pulse Rate [ 71 Sitting Quality Management Coordinator] Respiratory 18 Rate Blood Pressure 143/82 O2 Sat by Pulse 98 Oximetry Medical Decision Making - Lab Data Result diagrams: 04/04/21 12:46 04/04/21 12:46 Lab Results 04/04/21 04/04/21 04/04/21 Range/Units 12:46 12:46 12:46 WBC 7.9 (3.8-10.6) k/uL RBC 4.88 (3.80-5.40) m/uL Hgb 15.0 (11.4-16.0) gm/dL Hct 46.3 H (34.0-46.0) % MCV 94.9 (80.0-100.0) fL MCH 30.7 (25.0-35.0) pg MCHC 32.4 (31.0-37.0) g/dL RDW 13.8 (11.5-15.5) % Plt Count 298 (150-450) k/uL MPV 8.2 Neutrophils % 42 % Lymphocytes % 46 % Monocytes % 7 % Eosinophils % 2 % Basophils % 1 % Neutrophils # 3.3 (1.3-7.7) k/uL Lymphocytes # 3.7 (1.0-4.8) k/uL Monocytes # 0.6 (0-1.0) k/uL Eosinophils # 0.2 (0-0.7) k/uL Basophils # 0.1 (0-0.2) k/uL PT 10.3 (9.0-12.0) sec INR 1.0 (<1.2) APTT 25.1 (22.0-30.0) sec Sodium 135 L (137-145) mmol/L Potassium 4.2 (3.5-5.1) mmol/L Chloride 104 (98-107) mmol/L Carbon Dioxide 19 L (22-30) mmol/L Anion Gap 12 mmol/L BUN 15 (7-17) mg/dL Creatinine 0.83 (0.52-1.04) mg/dL Est GFR (CKD-EPI)AfAm 85 (>60 ml/min/1.73 sqM) Est GFR (CKD-EPI)NonAf 74 (>60 ml/min/1.73 sqM) Glucose 106 H (74-99) mg/dL Calcium 10.3 H (8.4-10.2) mg/dL Magnesium 2.1 (1.6-2.3) mg/dL Total Bilirubin 0.6 (0.2-1.3) mg/dL AST 30 (14-36) U/L ALT 27 (4-34) U/L Alkaline Phosphatase 83 (38-126) U/L Troponin I (0.000-0.034) ng/mL Total Protein 8.3 H (6.3-8.2) g/dL Albumin 4.8 (3.5-5.0) g/dL 04/04/21 Range/Units 12:46 WBC (3.8-10.6) k/uL RBC (3.80-5.40) m/uL Hgb (11.4-16.0) gm/dL Hct (34.0-46.0) % MCV (80.0-100.0) fL MCH (25.0-35.0) pg MCHC (31.0-37.0) g/dL RDW (11.5-15.5) % Plt Count (150-450) k/uL MPV Neutrophils % % Lymphocytes % % Monocytes % % Eosinophils % % Basophils % % Neutrophils # (1.3-7.7) k/uL Lymphocytes # (1.0-4.8) k/uL Monocytes # (0-1.0) k/uL Eosinophils # (0-0.7) k/uL Basophils # (0-0.2) k/uL PT (9.0-12.0) sec INR (<1.2) APTT (22.0-30.0) sec Sodium (137-145) mmol/L Potassium (3.5-5.1) mmol/L Chloride (98-107) mmol/L Carbon Dioxide (22-30) mmol/L Anion Gap mmol/L BUN (7-17) mg/dL Creatinine (0.52-1.04) mg/dL Est GFR (CKD-EPI)AfAm (>60 ml/min/1.73 sqM) Est GFR (CKD-EPI)NonAf (>60 ml/min/1.73 sqM) Glucose (74-99) mg/dL Calcium (8.4-10.2) mg/dL Magnesium (1.6-2.3) mg/dL Total Bilirubin (0.2-1.3) mg/dL AST (14-36) U/L ALT (4-34) U/L Alkaline Phosphatase (38-126) U/L Troponin I <0.012 (0.000-0.034) ng/mL Total Protein (6.3-8.2) g/dL Albumin (3.5-5.0) g/dL Disposition Clinical Impression: Chest pain Disposition: ADMITTED IP TO THIS HOSP Condition: Fair Referrals: Dima Bryson MD [Primary Care Provider] - 1-2 days
--- NOTE | 2021-04-04 13:01 | XR ---
EXAMINATION TYPE: XR chest 1V DATE OF EXAM: 04/04/2021 COMPARISON: 04/03/2021 HISTORY: 65-year-old female palpitations and chest pain TECHNIQUE: Single frontal view of the chest is obtained. FINDINGS: Heart borderline enlarged. Aorta and pulmonary vasculature within normal limits. Mild hyperinflation and mild interstitial prominence are unchanged. No consolidation or pleural effusion. IMPRESSION: COPD and borderline cardiomegaly. No definite acute process.
[2021-04-04 13:14] LABS: Basophils # (A) 0.1 k/uL (0-0.2); Basophils % (A) 1 %; Eosinophils # (A) 0.2 k/uL (0-0.7); Eosinophils % (A) 2 %; HCT 46.3 % (34.0-46.0); Lymphocytes # (A) 3.7 k/uL (1.0-4.8); Lymphocytes % (A) 46 %; MCH 30.7 pg (25.0-35.0); MCHC 32.4 g/dL (31.0-37.0); MCV 94.9 fL (80.0-100.0); Mean Platelet Volume 8.2; Monocytes # (A) 0.6 k/uL (0-1.0); Monocytes % (A) 7 %; Neutrophils # (A) 3.3 k/uL (1.3-7.7); Neutrophils % (A) 42 %; Platelet Count 298 k/uL (150-450); RBC 4.88 m/uL (3.80-5.40); RDW 13.8 % (11.5-15.5); WBC 7.9 k/uL (3.8-10.6)
[2021-04-04 13:19] LABS: Albumin 4.8 g/dL (3.5-5.0); Calcium 10.3 mg/dL (8.4-10.2); Magnesium 2.1 mg/dL (1.6-2.3); Potassium 4.2 mmol/L (3.5-5.1); Total Bilirubin 0.6 mg/dL (0.2-1.3); Total Protein 8.3 g/dL (6.3-8.2)
[2021-04-04 13:27] LABS: Partial Thromboplastin Time 25.1 sec (22.0-30.0); Prothrombin Time 10.3 sec (9.0-12.0)
[2021-04-04] MEDS ORDERED: NITROGLYCERIN SL TABS 0.4 MG TAB SUBLINGUAL STA (14:17)
[2021-04-04] MEDS ORDERED: SUMAtriptan succinate 50 MG TAB PO PRN (17:44)
[2021-04-04] MEDS ORDERED: HYDROcodone/APAP 5-325MG 1 EACH TAB PO PRN (17:44)
[2021-04-04] MEDS ORDERED: LORATADINE 10 MG TAB PO PRN (17:44)
[2021-04-04] MEDS ORDERED: LORazepam 1 MG TAB PO PRN (17:44)
[2021-04-04] MEDS ORDERED: MELATONIN 5 MG TABLET PO PRN (17:44)
[2021-04-04] MEDS ORDERED: LOSARTAN 50 MG TAB PO SCH (18:00)
[2021-04-04] MEDS: hydrALAZINE HCL 25 MG TAB PO SCH ×2 (18:08→22:11)
[2021-04-04] MEDS: ATORVASTATIN 40 MG TAB PO SCH (18:08)
[2021-04-04] MEDS ORDERED: SODIUM CHLORIDE 0.9% 1,000 ML IV SCH (18:15)
--- NOTE | 2021-04-04 19:06 | P.HPIM ---
History of Present Illness H&P Date: 04/04/21 (Chest pain and palpitation) Chief Complaint: Patient experienced chest discomfort with increased palpitation of the ches History and physical dictation date of service 04/04/2021 Corinne Curiel Patient 65 years old white female , she did go this morning to have a lori pping at the grocery store, at the end of her shopping she felt that she is dizzy and the heart palpitating very fast and sweaty subsequently she drove herself to the hospital. Patient stated that she had similar symptoms yesterday she came to the emergency room and the ER physician see her and they decided that she had musculoskeletal pain with the costochondritis and the send her home. Patient also has been at [facility] where the examined her evaluated her for atrial fibrillation with RVR and they placed the device to record her heart rate lost weight and she may lead to him currently patient does not have a pacemaker. She had similar episode of these palpitation and the chest pain in the past now is increasing the present. Patient came to be evaluated by the ER physician, he did examine her and found that EKG is normal cardiac enzyme is normal and he requested to be admitted to be seen by cardiology and evaluated subsequently patient was [facility] reviewed her medication apparently she taken also for underlying depression bipolar and anxiety from Dr. Dumont, the psychiatrist and she taken Anacin for the psychiatric point of view and apparently may cause her heart rate to be paid up and cause the underlying paroxysmal atrial fibrillation. And some of the medication can cause increase in irritability as prolongation of the QT interval. Patient is currently on medication at home for hypertension, bipolar disorder and depression as well as hypothyroidism as well as chronic pain, hyperlipidemia and Eliiquis I have milligrams twice a day ordered by the [facility]. And she is also on Serevent while 300 mg at at bedtime as well as triptal antidepressant which can cause atrial fibrillation/or tachycardia. Which has been withheld on this admission. Line patient has also migraine headache and she received Soma triptan succinate Imitrex 100 mg on when necessary basis she did not use it recently. Her quite deep and is at 300 mg by mouth at at bedtime for her psychiatric disorder and we did not hold it yet we will let the cardiology to see her first and to see what seems to pain and back matter Past medical history: Anxiety disorder, hypertension, gastroesophageal reflux disease without esophagitis, hyperlipidemia, hypothyroidism, vitamin D deficiency, irritable bowel syndrome,. The medication we held Trileptal L1 [address] Tatum. Reviewing of system: At the time of the exam patient had no chest pain, no palpitation, her EKG was regular sinus rhythm rate was well-controlled. No symptoms of respiratory No symptoms of cardiovascular. No symptoms of GI. She had history of incontinent and she was planning to see the urologist at [facility] for overactive bladder Dr. Manan GARRETT OFFEL Musculoskeletal she had some arthritis of the hip. Endocrine she had a hypothyroidism and is did with levothyroxine. Obstructive sleep apnea and vertigo included 9 lost visit Added to the above no other bullet of complain. Lost visit to [facility] seen by Dr. Barrios lost name first name is Dr. sophia MD last visit to [facility] 03/14/2021 line She also was seen in the cardiology for evaluation for preop for her incontinent of the urine and she was seen for overactive bladder in 02/21/[address] Back. On the physical exam: Head was normocephalic and atraumatic, pupil was equal reactive, normal hearing, oropharynx natural teas with uvula midline no evidence of stroke or facial asymmetry. Neck was supple no JVD no thyromegaly no lymphadenopathy trachea midline. Chest clear to auscultation and percussion no wheezes no rhonchi's. The heart: Regular sinus rhythm and the mild cardiomegaly PMI in the fifth intercostal space outside midclavicular line her blood pressure was 170 systolic and she taken medication in the morning. Abdomen is soft obese positive bowel sounds. Genitourinary history of overactive bladder and urinary incontinence. Extremities no edema positive pulses. Psychiatry patient is currently stable the adjusted some vitamin medication that can cause the increased heart rate. Neurologically no lateralizing sign and she is ambulatory and she drove her car to the hospital. Assessment: #1 chest pain #2 atrial fibrillation with RVR not captured in the ER as when she arrived was stabilized with a history of atrial fibrillation from [facility]. #3 normal EKG, normal troponin so far however we will continue to monitor. #4 no migraine headache at the time of the admission. Underlying history of bipolar and major depression and anxiety and treated by Dr. Tatum we will continue his medication except only medication we will be he ld is a Trileptal L. Underlying coronary artery disease atherosclerotic heart disease and unstable a ngina was considered and would leave that up to the cardiology evaluation and treatment. Dehydration mild. Plan she is on eliquis chronic atrial fibrillation by [facility] will continue the same medication #2 consultation with the cardiology. #3 patient had mild acidemia with the carbon dioxide is 19, we will obtain lactic acid as well as will repeat labs in the morning also her hemoglobin and hematocrits is elevated with the underlying mild dehydration and we'll be gentle hydration. Lab ordered for tomorrow. Past Medical History Past Medical History: Atrial Fibrillation, Fibromyalgia, GERD/Reflux, Hypertension, Neurologic Disorder, Osteoarthritis (OA), Pneumonia, Seizure Disorder, Sleep Apnea/CPAP/BIPAP, Thyroid Disorder Additional Past Medical History / Comment(s): Migraines, past ETOH abuse but no alcohol since prior 1996, seizure associated with alcohol withdrawal prior 1996, small bowel ileus, RLS, arthritis multiple joints, hypothyroid, scoliosis, sees chiropractor. Sinus problems with seasonal ALLERGIES. IBS. Osteopenia. , states having problems swallowing meat and pills- states hx of EGD with dilation. History of Any Multi-Drug Resistant Organisms: None Reported Past Surgical History: Bladder Surgery, Cholecystectomy, Orthopedic Surgery, T ubal Ligation Additional Past Surgical History / Comment(s): edmond fundloplasty then takedown which pt states involved her pancreas, pubovaginal sling, bilateral carpal tunne l releases, L knee ligament release, bilateral feet bunionectomy/reconstruction, several trigger fingers/toes, EGD with dilation, colonoscopy, spleenectomy. Bunionectomy. Wrist surgery. bladder stimulator placed for overactive bladder- battery placed in buttox. Past Anesthesia/Blood Transfusion Reactions: No Reported Reaction Past Psychological History: Anxiety, Bipolar Additional Psychological History / Comment(s): states hx psycosis. Smoking Status: Never smoker Past Alcohol Use History: Abuse Additional Past Alcohol Use History / Comment(s): recovered alcoholic 1996. Past Drug Use History: None Reported - Past Family History Sister(s) Family Medical History: Cancer Additional Family Medical History / Comment(s): breast cancer Mother Family Medical History: Cancer Additional Family Medical History / Comment(s): lung cancer Medications and Allergies Home Medications Medication Instructions Recorded Confirmed Type LORazepam [Lorazepam] 1 mg PO TID PRN 05/04/14 04/04/21 History Zolpidem [Ambien] 10 mg PO HS PRN 02/05/17 04/04/21 History QUEtiapine [SEROquel] 300 mg PO HS 01/15/18 04/04/21 History Levothyroxine Sodium [Synthroid] 75 mcg PO DAILY 08/22/18 04/04/21 History Aspirin EC [Ecotrin Low Dose] 81 mg PO DAILY #30 tablet. 08/24/18 04/04/21 Rx amLODIPine [Norvasc] 5 mg PO HS 09/27/18 04/04/21 History Apixaban [Eliquis] 5 mg PO BID #60 tab 09/28/18 04/04/21 Rx hydrALAZINE HCL 25 mg PO DAILY PRN 03/12/20 04/04/21 History Hydrocortisone Cream 1 applic TOPICAL DAILY 03/21/20 04/04/21 History [Hydrocortisone 2.5% Cream] Losartan [Cozaar] 50 mg PO DAILY 03/21/20 04/04/21 History OXcarbazepine [Trileptal] 600 mg PO HS 03/21/20 04/04/21 History Atorvastatin [Lipitor] 40 mg PO DAILY 04/03/21 04/04/21 History Dicyclomine HCl 20 mg PO TID 04/03/21 04/04/21 History Esomeprazole Magnesium [NexIUM] 40 mg PO DAILY 04/03/21 04/04/21 History Fexofenadine HCl [Rose Allergy] 180 mg PO DAILY PRN 04/03/21 04/04/21 History HYDROcodone/APAP 5-325MG [[place] 1 tab PO QID PRN 04/03/21 04/04/21 History 5-325] Melatonin 10 mg PO HS PRN 04/03/21 04/04/21 History SUMAtriptan SUCCINATE [Imitrex] 100 mg PO DAILY PRN 04/03/21 04/04/21 History hydrALAZINE HCL [Apresoline] 25 mg PO HS 04/03/21 04/04/21 History Allergies Allergy/AdvReac Type Severity Reaction Status Date / Time codeine AdvReac Nausea Verified 04/04/21 13:08 trazodone AdvReac NIGHTMARES Verified 04/04/21 13:08 Physical Exam Vitals: Vital Signs Temp Pulse Pulse Resp BP BP Pulse Ox 04/04/21 16:31 98.0 F 72 18 174/72 98 04/04/21 15:35 79 18 139/83 96 04/04/21 12:54 71 04/04/21 12:18 98.4 F 104 H 18 143/82 98 Intake and Output 04/04/21 04/04/21 04/04/21 06:59 14:59 22:59 Intake Total 118 Balance 118 Intake: Oral 118 Other: Weight 76.204 kg 76.204 kg Results CBC & Chem 7: 04/04/21 12:46 04/04/21 12:46 Labs: Abnormal Lab Results - Last 24 Hours (Table) 04/04/21 04/04/21 Range/Units 12:46 12:46 Hct 46.3 H (34.0-46.0) % Sodium 135 L (137-145) mmol/L Carbon Dioxide 19 L (22-30) mmol/L Glucose 106 H (74-99) mg/dL Calcium 10.3 H (8.4-10.2) mg/dL Total Protein 8.3 H (6.3-8.2) g/dL Thrombosis Risk Factor Assmnt - Choose All That Apply Any of the Below Risk Factors Present?: Yes Each Factor Represents 1 point: Obesity (BMI >25) Other Risk Factors: Yes Each Risk Factor Represents 2 Points: Age 61-74 years Thrombosis Risk Factor Assessment Total Risk Factor Score: 3 Thrombosis Risk Factor Assessment Level: Moderate Risk
[2021-04-04] MEDS ORDERED: QUEtiapine 100 MG TAB PO SCH (21:00)
[2021-04-04] MEDS: APIXABAN 5 MG TAB PO SCH (22:11)
[2021-04-04] MEDS: NITROGLYCERIN SL TABS 0.4 MG TAB SUBLINGUAL PRN ×2 (23:24→23:43)
[2021-04-05 00:47] VITALS: TEMP 98.1
[2021-04-05] MEDS ORDERED: LEVOTHYROXINE 75 MCG TAB PO SCH (06:30)
[2021-04-05] MEDS ORDERED: PANTOPRAZOLE 40 MG TABLET PO SCH (07:30)
[2021-04-05 07:59] LABS: African American GFR (CKD) >90 (>60 ml/min/1.73 sqM); Anion Gap 9 mmol/L; Blood Urea Nitrogen 14 mg/dL (7-17); Calcium 9.2 mg/dL (8.4-10.2); Carbon Dioxide 23 mmol/L (22-30); Chloride 106 mmol/L (98-107); Glucose 94 mg/dL (74-99); Magnesium 2.3 mg/dL (1.6-2.3); Non-African American GFR(CKD) >90 (>60 ml/min/1.73 sqM); Sodium 138 mmol/L (137-145)
[2021-04-05 08:01] LABS: Potassium 4.6 mmol/L (3.5-5.1)
[2021-04-05 08:25] VITALS: BP 115/68; PULSE 64; RESP 16
[2021-04-05] MEDS: APIXABAN 5 MG TAB PO SCH (08:49)
[2021-04-05] MEDS: hydrALAZINE HCL 25 MG TAB PO SCH (08:49)
[2021-04-05] MEDS: ATORVASTATIN 40 MG TAB PO SCH (08:49)
[2021-04-05] MEDS ORDERED: amLODIPine 5 MG TAB PO SCH (09:00)
[2021-04-05] MEDS ORDERED: ASPIRIN 81 MG PO SCH (09:00)
[2021-04-05] MEDS ORDERED: ASPIRIN 325 MG TAB PO SCH (09:00)
[2021-04-05 11:05] LABS: Basophils # (A) 0.04 X 10*3/uL (0.00-0.10); Basophils % (A) 0.9 %; Eosinophils # (A) 0.15 X 10*3/uL (0.04-0.35); Eosinophils % (A) 3.3 %; HCT 44.2 % (37.2-46.3); Lymphocytes # (A) 2.26 X 10*3/uL (0.90-5.00); MCH 30.2 pg (27.0-32.0); MCHC 31.7 g/dL (32.0-37.0); MCV 95.3 fL (80.0-97.0); Mean Platelet Volume 11.1 fL (9.5-12.2); Monocytes # (A) 0.59 X 10*3/uL (0.20-1.00); Monocytes % (A) 13.1 %; Neutrophils # (A) 1.47 X 10*3/uL (1.80-7.70); Neutrophils % (A) 32.5 %; Platelet Count 322 X 10*3/uL (140-440); RBC 4.64 X 10*6/uL (4.10-5.20); RDW 15.7 % (11.5-14.5); WBC 4.52 X 10*3/uL (4.50-10.00)
--- NOTE | 2021-04-05 11:27 | P.DS ---
Providers Date of admission: 04/04/21 14:17 Expected date of discharge: 04/05/21 Attending physician: Dima Bryson Consults: 04/04/21 14:16 Consult Physician Urgent Consulting Provider: Sylvain Coyle Consult Reason/Comments: chest pain Do you want consulting provider notified?: Yes Primary care physician: Dima Bryson Discharge summary dictation by Dr. Bryson date of service 04/05/2021. Patient seen by Dr. JULIANE Colmenares cardiology cleared for discharge and follow-up on Wednesday 3:15 PM for for further testing as outpatient. Diagnosis: #1 chest pain atypical #2 chronic history of atrial fibrillation, on Eliquis. Resume [place] 5 mg twice a day anticoagulant. #3 going for 04/07/2021 for the cardiology office which she had for further testing and stress test. #3 mild to moderate dehydration with elevated hematocrit, CO2 19 with mild metabolic acidosis. #4 underlying history of complex psychiatric disorder with a bipolar, depression, anxiety. #5 possible participation of the medication for increased tachycardia and possible atrial fibrillation, i.e. Trileptal L., Norvasc, with the association of decreased blood pressure in the hospital Norvasc was held. #6 iatrogenic high power thyroidism, levothyroxin decreased from 75- to 50 g new prescription given to the patient. 2 Dr. JULIANE Colmenares's office. 4 planning for follow-up and stress test. ER presentation: Chest pain atypical and pericardial associated with palpitation intermittently with paroxysmal atrial fibrillation, in the ER she had a regular sinus rhythm. And troponin was normal for the first reading. ER physician requested patient to be admitted for observation. And consultation with cardiology. Hospital course: Patient admitted to engine monitor 619 bed 1 and continued the monitoring and started IV fluid for hydration. And consultation with his model home sales greeter. On reviewing of her medication found that she is on Trileptal L which was given by psychiatry for for further control of her psych disorder. And also found that she was taken Norvasc for blood pressure. On evaluation of the thyroid laboratory indicating hyper thyroidism and we did adjust her thyroid medication as mentioned above and use prescription given to the patient. Patient stated no chest pain, no palpitation, feeling good, Dr. JULIANE Colmenares did discharge her from his cardiology point of view. Mzox-la-yniy examination Patient conscious alert oriented 3 No headache no migraine headache no blurred vision no chest pain, ambulatory. Wants to go home. Head was normocephalic and atraumatic pupil was equal reactive conjunctiva was pink sclera was nonicteric oropharynx natural teas able to eat and swallow. Neck was supple no JVD no thyromegaly no lymphadenopathy trachea midline. Chest clear to auscultation and percussion. No wheezes no rhonchi's Cardiac: No chest pain no palpitation no tenderness on the costochondral junction. Her troponin 3 times was normal and EKG was normal Abdomen soft positive bowel sound no organ enlargement. Extremities no edema and positive pulses. Neurologically: Stable no lateralizing sign, ambulatory no cranial nerve deficit. No tremors. Assessment and plan on discharge: Patient is stable general condition to be discharged home today, follow up with Dr. JULIANE Colmenares on Wednesday 3:15 PM in his office at the client services associate. Follow-up with Dr. Ruffin the PCP next week and call the office for appointment. Follow-up with Dr. Tatum the psychiatry, after complete testing with the cardiology, Patient Condition at Discharge: Fair Plan - Discharge Summary Discharge Rx Participant: No New Discharge Prescriptions: New hydrALAZINE HCL [Apresoline] 25 mg PO TID #45 tab Levothyroxine Sodium [Synthroid] 50 mcg PO DAILY@0630 #30 tab Continue LORazepam [Lorazepam] 1 mg PO TID PRN PRN Reason: Anxiety QUEtiapine [SEROquel] 300 mg PO HS Aspirin EC [Ecotrin Low Dose] 81 mg PO DAILY #30 tablet. Apixaban [Eliquis] 5 mg PO BID #60 tab Hydrocortisone Cream [Hydrocortisone 2.5% Cream] 1 applic TOPICAL DAILY Losartan [Cozaar] 50 mg PO DAILY Dicyclomine HCl 20 mg PO TID HYDROcodone/APAP 5-325MG [[place] 5-325] 1 tab PO QID PRN PRN Reason: Pain Atorvastatin [Lipitor] 40 mg PO DAILY Esomeprazole Magnesium [NexIUM] 40 mg PO DAILY Fexofenadine HCl [Rose Allergy] 180 mg PO DAILY PRN PRN Reason: Allergy Symptoms Melatonin 10 mg PO HS PRN PRN Reason: SLEEP SUMAtriptan SUCCINATE [Imitrex] 100 mg PO DAILY PRN PRN Reason: Migraine Headache Discontinued Zolpidem [Ambien] 10 mg PO HS PRN PRN Reason: Insomnia Levothyroxine Sodium [Synthroid] 75 mcg PO DAILY amLODIPine [Norvasc] 5 mg PO HS hydrALAZINE HCL 25 mg PO DAILY PRN PRN Reason: HIGH BLOOD PRESSURE OXcarbazepine [Trileptal] 600 mg PO HS hydrALAZINE HCL [Apresoline] 25 mg PO HS Discharge Medication List LORazepam [Lorazepam] 1 mg PO TID PRN 05/04/14 [History] QUEtiapine [SEROquel] 300 mg PO HS 01/15/18 [History] Aspirin EC [Ecotrin Low Dose] 81 mg PO DAILY #30 tablet. 08/24/18 [Rx] Apixaban [Eliquis] 5 mg PO BID #60 tab 09/28/18 [Rx] Hydrocortisone Cream [Hydrocortisone 2.5% Cream] 1 applic TOPICAL DAILY 03/21/20 [History] Losartan [Cozaar] 50 mg PO DAILY 03/21/20 [History] Atorvastatin [Lipitor] 40 mg PO DAILY 04/03/21 [History] Dicyclomine HCl 20 mg PO TID 04/03/21 [History] Esomeprazole Magnesium [NexIUM] 40 mg PO DAILY 04/03/21 [History] Fexofenadine HCl [Rose Allergy] 180 mg PO DAILY PRN 04/03/21 [History] HYDROcodone/APAP 5-325MG [[place] 5-325] 1 tab PO QID PRN 04/03/21 [History] Melatonin 10 mg PO HS PRN 04/03/21 [History] SUMAtriptan SUCCINATE [Imitrex] 100 mg PO DAILY PRN 04/03/21 [History] Levothyroxine Sodium [Synthroid] 50 mcg PO DAILY@0630 #30 tab 04/05/21 [Rx] hydrALAZINE HCL [Apresoline] 25 mg PO TID #45 tab 04/05/21 [Rx] Follow up Appointment(s)/Referral(s): Nieves Colmenares MD [STAFF PHYSICIAN] - 04/07/21 3:15 pm Dima Bryson MD [Primary Care Provider] - 1-2 days
--- NOTE | 2021-04-05 11:33 | CONS ---
CONSULTATION Pebbles Box is a 65-year-old lady who carries a diagnosis of hypertension and hyperlipidemia and paroxysmal atrial fibrillation. She sees Dr. Bryson from a primary care standpoint and used to see Dr. Dent and Dr. Wililngham in the past. She currently sees a supervisor shellfish farming in the [place] area. She came into the hospital actually day before yesterday with sharp pain in the chest, musculoskeletal in nature, was sent home. Came back again with recurrent pain while she was shopping at about 12 noon. She also felt some fluttering in the chest. She felt she may have atrial fib. EKG, however, revealed sinus rhythm. She is resting comfortably without symptoms. Has no elevation of any troponins. The quality of her pain is very atypical. Her thyroid functions are normal. All other laboratory data also is quite unremarkable. Her multiple EKGs were reviewed and all of these are unremarkable. PAST MEDICAL HISTORY: 1. Hypertension. 2. Hypercholesterolemia. 3. Paroxysmal atrial fib. 4. Hypothyroidism, on replacement therapy. 5. History of some migraine headaches. MEDICATIONS: Medications at home include hydralazine, amlodipine, losartan, Synthroid 75 mg daily, aspirin 81 mg daily, Eliquis 5 mg b.i.d., Lipitor 40 mg daily. She sees a supervisor shellfish farming in the [place] area, who has suggested the above medications. LABORATORY DATA: Here suggests that troponins are normal and no other significant abnormalities. EKG revealed a sinus rhythm with no acute changes. Chest x-ray revealed COPD type picture, but no significant changes. PHYSICAL EXAMINATION: On examination, blood pressure is 118/70, pulse rate 64 per minute, regular. HEENT unremarkable. Fundus was not examined by me. NECK is supple. No JVD. I do not hear a carotid bruit. There is no thyromegaly. HEART exam reveals S1, S2 heard normally in all areas without a rub murmur or gallop. LUNGS are clear. ABDOMEN is soft, nontender. Lower EXTREMITIES reveal normal pulses. No edema. CENTRAL NERVOUS SYSTEM is normal. EKG revealed sinus mechanism, no acute changes. IMPRESSION: 1. Atypical chest pain. 2. Hypertension. 3. Hypercholesterolemia. 4. Paroxysmal atrial fibrillation. RECOMMENDATIONS: I am recommending that we can increase activity and see how she does. If she has no further pain, she can be discharged and I will see her in the office on Wednesday at 3:15 pm. Advised to call if he has a question, concern or problem. I explained to the patient that all the laboratory workup is negative and stress test can be done as an outpatient. She is agreeable with this approach. She will ambulate and see how she does. If she has no further symptoms, she can be discharged. Thank you very much for the consult. KRISTIN / BRANDIE: [id number] /
[2021-04-05 11:45] LABS: Chol/HDL Ratio 2.67 Ratio; LDL Cholesterol,Calculated 115.5 mg/dL (0.0-131.0); VLDL Calculation 12.12 mg/dL (5.00-40.00)
[2021-04-05] MEDS ORDERED: LOSARTAN 50 MG TAB PO SCH (21:00)
[2021-04-06] MEDS ORDERED: LEVOTHYROXINE 50 MCG TAB PO SCH (06:30)
== END 2021-04-05 12:22 | disposition home or self-care (01) ==
LOC: EC 12:08 → 6NMEDSUR 14:17
PROVIDERS: ADMIT Internal Medicine; ATTEND Internal Medicine
DX: R07.89 Other chest pain (principal); I48.0 Paroxysmal atrial fibrillation; E87.2 Acidosis; E86.0 Dehydration; I10 Essential (primary) hypertension; G40.909 Epilepsy, unspecified, not intractable, without status epilepticus; M79.7 Fibromyalgia; G47.33 Obstructive sleep apnea (adult) (pediatric); K21.9 Gastro-esophageal reflux disease without esophagitis; E03.9 Hypothyroidism, unspecified; G43.909 Migraine, unspecified, not intractable, without status migrainosus; E78.00 Pure hypercholesterolemia, unspecified; R71.8 Other abnormality of red blood cells; N32.81 Overactive bladder; R32 Unspecified urinary incontinence; G25.81 Restless legs syndrome; M13.0 Polyarthritis, unspecified; M85.80 Other specified disorders of bone density and structure, unspecified site; J30.2 Other seasonal allergic rhinitis; M41.9 Scoliosis, unspecified; G89.29 Other chronic pain; E78.5 Hyperlipidemia, unspecified; E55.9 Vitamin D deficiency, unspecified; K58.9 Irritable bowel syndrome, unspecified; M94.0 Chondrocostal junction syndrome [Tietze]; F10.21 Alcohol dependence, in remission; F31.9 Bipolar disorder, unspecified; F06.4 Anxiety disorder due to known physiological condition; E66.9 Obesity, unspecified; Z68.31 Body mass index [BMI] 31.0-31.9, adult; Z20.822 Contact with and (suspected) exposure to COVID-19; Z79.890 Hormone replacement therapy; Z79.899 Other long term (current) drug therapy; Z79.82 Long term (current) use of aspirin; Z79.01 Long term (current) use of anticoagulants; Z88.5 Allergy status to narcotic agent; Z88.8 Allergy status to other drugs, medicaments and biological substances; Z90.49 Acquired absence of other specified parts of digestive tract; Z98.51 Tubal ligation status; Z90.81 Acquired absence of spleen; Z98.890 Other specified postprocedural states; Z82.49 Family history of ischemic heart disease and other diseases of the circulatory system; Z80.3 Family history of malignant neoplasm of breast; Z80.1 Family history of malignant neoplasm of trachea, bronchus and lung
CPT/HCPCS: 99285; 36415; 93005; 84439; 83880; 80061; 80053; 80048; 84443; 83605; 83735 ×2; 84484 ×2; 85025 ×2; 85610; 85730; 87635; 71045; G0378 ×2

== ENCOUNTER 2021-05-16 08:04 | Day surgery (SDC) | payer MEDICARE ==
[2021-05-14 11:38] VITALS: BMI 31.7
[~2021-05-16 08:04] MED LIST changes: -LIDOCAINE 1% (10MG/ML) FOR IV START INTRADERMA PRN
[2021-05-16 08:40] VITALS: TEMP 97.3
[2021-05-16] MEDS ORDERED: LIDOCAINE 1% INJ 10MG/ML (20 ML MDV) ONE (09:24)
[2021-05-16] MEDS ORDERED: PROPOFOL 10 MG/ML 20 ML VIAL IV ONE (09:24)
--- NOTE | 2021-05-16 09:37 | P.PCN ---
Date of Procedure: 05/16/21 Procedure(s) Performed: BRIEF HISTORY: Patient is a 65-year-old, pleasant, white female scheduled for an upper endoscopy as a part of evaluation as a part of evaluation of intermittent dysphagia to solids since her Sveta fundoplication done in June 2015. Last EGD with dilation was done in July 2020. Lately has been having some difficulty swallowing and scheduled for repeat upper endoscopy with dilation. PROCEDURE PERFORMED: Esophagogastroduodenoscopy with balloon dilation. PREOPERATIVE DIAGNOSIS: History of GERD/dysphagia to solids/history of Sveta fundoplication in 2016.. IV sedation per anesthesia. PROCEDURE: After informed consent was obtained, the patient was brought into the endoscopy unit. IV sedation was administered by Anesthesia under continuous monitoring. Initially the Olympus GIF-140 video endoscope was inserted into the mouth. Esophagus intubated without any difficulty. It was gradually advanced into the stomach and duodenum and carefully examined. The bulb and the second part of the duodenum appeared normal. The scope at this time was withdrawn to the stomach, adequately insufflated with air, and upon careful examination, mucosa of the antrum had mild gastritis. The, body, cardia and the fundus appeared normal. The scope was then withdrawn into the esophagus. Small hiatal hernia noted. The GE junction was located at 34 cm from the incisors. There was tightness of the lower esophageal sphincter noted. Just proximal to the hiatal hernia there was a widely patent distal esophageal Schatzki's ring that was dilated using 18-20 mm TTS TTS balloon in a sequential fashion for 60 seconds. The rest of the esophagus appeared normal. There were no erosions or ulcerations seen and the patient tolerated the procedure well. IMPRESSION: 1. Tight lower esophageal sphincter at the site of Sveta fundoplication. 2. Widely patent distal esophageal Schatzki's ring status post balloon dilation using 18-20 mm TTS balloon as described above. 3. Small hiatal hernia RECOMMENDATIONS: The findings of this examination were discussed with the patient as well as her family. She was advised to remain on clear liquids for lunch. Continue with current medications and resume liquids today. She'll be seen in office in 6 months..
[2021-05-16 09:58] VITALS: BP 123/74; PULSE 80; RESP 16
== END 2021-05-16 10:16 | disposition home or self-care (01) ==
LOC: ORWHC2ENDO 08:04
PROVIDERS: ATTEND Internal Medicine Gastroenterology
DX: K22.2 Esophageal obstruction (principal); K29.70 Gastritis, unspecified, without bleeding; K21.9 Gastro-esophageal reflux disease without esophagitis; K44.9 Diaphragmatic hernia without obstruction or gangrene; Z79.890 Hormone replacement therapy; Z79.899 Other long term (current) drug therapy; I10 Essential (primary) hypertension; I48.91 Unspecified atrial fibrillation; Z90.81 Acquired absence of spleen; Z90.49 Acquired absence of other specified parts of digestive tract; Z98.51 Tubal ligation status; Z98.890 Other specified postprocedural states; Z88.5 Allergy status to narcotic agent; Z79.01 Long term (current) use of anticoagulants; Z79.82 Long term (current) use of aspirin; Z88.8 Allergy status to other drugs, medicaments and biological substances
CPT/HCPCS: 43249; J2001; J2704; C1726

== ENCOUNTER → 2021-08-21 | Outpatient (CLI) | payer MEDICARE ==
[2021-08-21 17:55] LABS: African American GFR (CKD) 86.3 (60.0-200.0); BUN/Creat Ratio 19.61 Ratio (12.00-20.00); Calcium 9.5 mg/dL (8.7-10.3); Carbon Dioxide 25.3 mmol/L (20.0-27.5); Chloride 105 mmol/L (96-109); Chol/HDL Ratio 3.27 Ratio; Glucose 84 mg/dL (70-110); LDL Cholesterol,Calculated 134.2 mg/dL (0.0-131.0); Magnesium 2.1 mg/dL (1.5-2.4); Non-African American GFR(CKD) 74.5 (60.0-200.0); Potassium 4.3 mmol/L (3.5-5.5); Sodium 140 mmol/L (135-145)
== END | disposition home or self-care (01) ==
LOC: LABWHC1 10:56
DX: I10 Essential (primary) hypertension (principal)
CPT/HCPCS: 36415; 80048; 80061; 82088; 83735; 84244

== ENCOUNTER → 2021-11-14 | Outpatient (CLI) | payer MEDICARE ==
--- NOTE | 2021-10-20 15:12 | CT ---
EXAMINATION TYPE: CT heart w calcium score DATE OF EXAM: 10/20/2021 COMPARISON: CTA thoracic/abdominal aorta 12/18/2010. HISTORY: Screening for cardiovascular disorder. 213.9 CT DLP: 49.40 mGycm Automated exposure control for dose reduction was used. CT CALCIUM SCORING Coronary calcium is a marker for plaque (fatty deposits) in a blood vessel or atherosclerosis (harden ing of the arteries). The presence and amount of calcium detected in a coronary artery by the CT sca n, indicates the presence and amount of atherosclerotic plaque. These calcium deposits appear years before the development of heart disease symptoms such as chest pain and shortness of breath. A calcium score is computed for each of the coronary arteries based upon the volume and density of th e calcium deposits. This can be referred to as your calcified plaque burden. It does not correspond directly to the percentage of narrowing in the artery but does correlate with the severity of the un derlying coronary atherosclerosis. PROCEDURE TECHNIQUE - Prospective Gating was used. Slice thickness: 3mm. Density threshold (HU): 130, Pixel threshold: 3, Algorithm: discrete. RESULTS Region: LM Calcium Score (Agatston): 0 Volume (mm3): 0 Mass (g): 0 Region: RCA Calcium Score ([place]at[place]): 0 Volume (mm3): 0 Mass (g): 0 Region: LAD Calcium Score (Agatston): 156.99 Volume (mm3): 118.15 Mass (g): 39.38 Region: CX Calcium Score (Agat[place]): 0 Volume (mm3): 0 Mass (g): 0 Region: PDA Calcium Score (Agat[place]): 0 Volume (mm3): 0 Mass (g): 0 Total: Calcium Score (Agatston): 156.99 Volume (mm3): 118.15 Mass (g): 39.38 TOTAL CALCIUM SCORE: 156.99 IMPRESSION: Calcium Score: 101-400 Implication: Definite, at least moderate atherosclerotic plaque. Risk of Coronary Artery Disease: Mild coronary artery disease highly likely, significant narrowings p ossible CALCIUM SCORE IMPLICATION RISK OF C ORONARY ARTERY DISEASE 0 No identifiable plaque Very low, generally less than 5% 1-10 Minimal identifiable plaque Very unlikely, less than 10% 11-100 Definite, at least mild atherosclerotic plaque Mild or m inimal coronary narrowings likely 101-400 Definite, at least moderate atherosclerotic plaque Mild coronary ar wilmer disease highly likely, significant narrowing possible 401 or Higher Extensive atherosclerotic plaque High lik elihood of at least one significant coronary narrowing
[2021-10-20 18:57] LABS: LDL Cholesterol,Calculated 86.7 mg/dL (0.0-131.0); VLDL Calculation 11.82 mg/dL (5.00-40.00)
--- NOTE | 2021-11-16 11:23 | CA ---
Transthoracic Echo Report Name: Pebbles Box Age: 66 Gender: F : 1955 Exam Date: 11/14/2021 13:14 Exam Location: [place] [facility] Ht (in): 61 Wt (lb): 160 Ordering Physician: Melvin Alvares MD Attending/Referring Phys: Box Spring Maker Arline Cabello RDCS Procedure CPT: Indications: I10 HTN Cardiac Hx: Technical Quality: Fair Contrast 1: Total Dose (mL): Contrast 2: Total Dose (mL): MEASUREMENTS (Male / Female) Normal Values 2D ECHO LV Diastolic Diameter PLAX 3.5 cm 4.2 - 5.9 / 3.9 - 5.3 cm LV Systolic Diameter PLAX 2.3 cm IVS Diastolic Thickness 1.2 cm 0.6 - 1.0 / 0.6 - 0.9 cm LVPW Diastolic Thickness 1.3 cm 0.6 - 1.0 / 0.6 - 0.9 cm LV Relative Wall Thickness 0.7 RV Internal Dim ED PLAX 2.2 cm LA Volume 47.1 cm??? 18 - 58 / 22 - 52 cm??? M-MODE Aortic Root Diameter MM 2.5 cm LA Systolic Diameter MM 3.8 cm LA Ao Ratio MM 1.5 AV Cusp Separation MM 1.9 cm DOPPLER AV Peak Velocity 109.8 cm/s AV Peak Gradient 4.8 mmHg AI Peak Velocity 403.3 cm/s AI Peak Gradient 65.1 mmHg AI Pressure Half Time 577.7 ms LVOT Peak Velocity 102.1 cm/s LVOT Peak Gradient 4.2 mmHg MV Area PHT 2.3 cm??? Mitral E Point Velocity 51.6 cm/s Mitral A Point Velocity 96.4 cm/s Mitral E to A Ratio 0.5 MV Deceleration Time 330.8 ms MV E' Velocity 9.4 cm/s Mitral E to MV E' Ratio 5.5 TR Peak Velocity 183.6 cm/s TR Peak Gradient 13.5 mmHg Right Ventricular Systolic Press 17.6 mmHg FINDINGS Left Ventricle Mildly increased left ventricular wall thickness. Normal left ventricular systolic function with no obvious regional wall motion abnormalities. Left ventricular ejection fraction is estimated at 55-60 %. Normal left ventricular diastolic filling pattern. Right Ventricle Normal right ventricular size and function. Right ventricular systolic pressure within normal limits. Right Atrium Normal right atrial size. Prominent chiari network in the right atrium (normal variant). Left Atrium Normal left atrial size. No evidence for an atrial septal defect. Mitral Valve Structurally normal mitral valve. Mild mitral regurgitation. Mild thickening/calcification of the anterior mitral valve leaflet. Aortic Valve Trileaflet aortic valve. Aortic valve sclerosis. Tricuspid Valve Structurally normal tricuspid valve. Mild tricuspid regurgitation. Pulmonic Valve Trace pulmonic regurgitation. Pericardium No pericardial effusion. Aorta Normal size aortic root and proximal ascending aorta. CONCLUSIONS Normal left ventricular dimension and systolic function Mitral annular calcification. Mild MR Please see above for further details Previewed by: Dr. Dayne Dent MD (Electronically Signed) Final Date: 16 November 2021 11:22
== END | disposition home or self-care (01) ==
LOC: RADCTMAIN 10-20 13:09 → RADECHMAIN 13:09
PROVIDERS: ATTEND Internal Medicine
DX: Z13.6 Encounter for screening for cardiovascular disorders (principal); I48.19 Other persistent atrial fibrillation; I25.10 Atherosclerotic heart disease of native coronary artery without angina pectoris
CPT/HCPCS: 36415; 75571; 80061; 93306

== ENCOUNTER 2022-04-09 07:23 | Day surgery (SDC) | payer MEDICARE | END 2022-04-09 08:38 | disposition home or self-care (01) | LOC: RADPROMAIN 07:23 | PROVIDERS: ATTEND Neurological Surgery | DX: Z53.9 Procedure and treatment not carried out, unspecified reason (principal) ==

== ENCOUNTER → 2022-04-09 | Outpatient (CLI) | payer MEDICARE ==
[2022-04-09 15:05] LABS: Basophils # (A) 0.04 X 10*3/uL (0.00-0.10); Basophils % (A) 0.8 %; Eosinophils # (A) 0.16 X 10*3/uL (0.04-0.35); Eosinophils % (A) 3.1 %; HCT 39.2 % (37.2-46.3); HGB 12.6 g/dL (12.0-15.0); Immature Grans, Automated 0 %; Lymphocytes # (A) 2.71 X 10*3/uL (0.90-5.00); Lymphocytes % (A) 52.8 %; MCH 29.9 pg (27.0-32.0); MCHC 32.1 g/dL (32.0-37.0); MCV 92.9 fL (80.0-97.0); Mean Platelet Volume 10.8 fL (9.5-12.2); Monocytes # (A) 0.55 X 10*3/uL (0.20-1.00); Monocytes % (A) 10.7 %; NRBC Per 100 WBC 0 /100 WBCS (0.0-0.0); Neutrophils # (A) 1.67 X 10*3/uL (1.80-7.70); Neutrophils % (A) 32.6 %; Platelet Count 350 X 10*3/uL (140-440); RBC 4.22 X 10*6/uL (4.10-5.20); RDW 14.6 % (11.5-14.5); WBC 5.13 X 10*3/uL (4.50-10.00)
[2022-04-09 15:32] LABS: ALT 38 U/L (8-44); AST 20 U/L (13-35); African American GFR (CKD) 91.5 (60.0-200.0); Albumin 4.4 g/dL (3.8-4.9); Alkaline Phosphatase 89 U/L (41-126); BUN/Creat Ratio 23.29 Ratio (12.00-20.00); Calcium 9.7 mg/dL (8.7-10.3); Carbon Dioxide 26.1 mmol/L (20.0-27.5); Chloride 104 mmol/L (96-109); Globulin 2.4 g/dL (1.6-3.3); Glucose 97 mg/dL (70-110); Sodium 142 mmol/L (135-145); Total Bilirubin <0.15 mg/dL (0.30-1.20); Total Protein 6.8 g/dL (6.2-8.2); Uric Acid 3.5 mg/dL (2.9-7.7)
[2022-04-09 15:43] LABS: Erythrocyte Sedimentation Rate 22 mm/Hr (0-30)
[2022-04-09 16:13] LABS: C Reactive Protein <0.30 mg/dL (0.00-0.80); LDL Cholesterol,Calculated 122.2 mg/dL (0.0-131.0); VLDL Calculation 10.28 mg/dL (5.00-40.00)
[2022-04-09 20:49] LABS: Magnesium 2.1 mg/dL (1.5-2.4); Phosphorus 3.9 mg/dL (2.4-5.1)
[2022-04-10 02:08] LABS: Creatine Kinase 65 U/L (26-186)
== END | disposition home or self-care (01) ==
LOC: LABWHC1 08:33
PROVIDERS: ATTEND Internal Medicine
DX: Z00.00 Encounter for general adult medical examination without abnormal findings (principal); I10 Essential (primary) hypertension; D64.9 Anemia, unspecified; E78.5 Hyperlipidemia, unspecified; E03.9 Hypothyroidism, unspecified; E55.9 Vitamin D deficiency, unspecified; M10.9 Gout, unspecified; N20.0 Calculus of kidney; R73.9 Hyperglycemia, unspecified
CPT/HCPCS: 36415; 80053; 80061; 82306; 82550; 83036; 83735; 84100; 84439; 84443; 84550; 85025; 85652; 86140

== ENCOUNTER → 2022-04-14 | Day surgery (SDC) | payer MEDICARE ==
[2022-04-09 13:23] VITALS: BMI 30.6
== END ==
LOC: ORWHC2ENDO 07:05
PROVIDERS: ATTEND Internal Medicine Gastroenterology
DX: K21.9 Gastro-esophageal reflux disease without esophagitis (principal)

== ENCOUNTER → 2022-04-24 | Day surgery (SDC) | payer MEDICARE ==
[~2022-04-24] MED LIST changes: +ACETAMINOPHEN TAB 500 MG TAB PO PRN; -LACTATED RINGERS 1,000 ML IV SCH; +diazePAM 5 MG TAB PO PRN
[2022-04-24 09:12] VITALS: TEMP 98.1
[2022-04-24 09:58] VITALS: RESP 16
--- NOTE | 2022-04-24 13:11 | FL ---
PROCEDURE: FL myelogram lumbosacral DATE: 04/24/2022 CLINICAL HISTORY: 66-year-old female M5 4.51, vertebrogenic low back pain COMPLICATIONS: None SEDATION: Administered by radiology nursing personnel. The patient and the patient's vital signs were monitore d by qualified independent radiology personnel. TECHNIQUE: The procedure and potential risks were explained to patient and an informed consent was obtained with teach back. Site and side was verified. A time out was performed. The patient was placed prone on the fluoroscopy table and the L3-L4 level was localized and the skin was marked and was prepped and draped in the usual sterile fashion. Lidocaine was used for local anesthesia. Utilizing fluoroscopic guidance a 22-gauge 5 inch spinal nee dle was placed through the skin and into the subarachnoid space. Clear CSF was visualized. Subsequently, 12 mL Isovue-M 200 contrast material was administered into th e intrathecal space. The patient was manipulated on the table to promote upward and downward movement of the contrast colu mn. The patient tolerated the procedure well and was sent for CT. The estimated blood loss was minimal. The patient's condition was unchanged following the procedure. Fluoroscopy time: 1 minute 8 seconds Total images: 6 IMPRESSION: Successful lumbar myelogram injection for CT.
[2022-04-24 13:13] VITALS: BP 140/68; PULSE 60
--- NOTE | 2022-04-24 13:22 | CT ---
EXAMINATION TYPE: CT lumbar myelogram DATE OF EXAM: 04/24/2022 COMPARISON: None HISTORY: 66-year-old female M54.51, VERTEBROGENIC LOW BACK PAIN. Postmyleogram TECHNIQUE: CT of the lumbar spine after intrathecal administration of 12cc mL of Isovue M200. Please refer to myelogram injection report of the same day for further details. Coronal/sagittal reconstruct ions performed. CT DLP: 612.7 mGycm Automated exposure control for dose reduction was used. FINDINGS: Left posterior generator device with stimulator lead extending along the left sacral plexus. Postsurgical change of splenectomy and cholecystectomy. Lobulated cyst central left liver lobe. Dextroconvex curvature of the lumbar spine may be positional or due to an underlying scoliosis. Conus medullaris is normal. Mild multilevel degenerative disc disease with disc bulging. Scattered facet arthropathy, severe in the lower lumbar spine with accentuated lower lumbar lordosis. Degenerative grade 1 retrolisthesis L1-L2 and L2-L3. Degenerative grade 1 anterolisthesis L4-L5. Vertebral body heights are preserved. T12-L1, no spinal canal neuroforaminal stenosis. At L1-L2, there is facet arthropathy with grade 1 retrolisthesis and disc bulge. Mild impression on t he ventral thecal sac without significant spinal canal stenosis. Changes result in mild left neurofor aminal narrowing. At L2-L3, facet arthropathy with trace grade 1 retrolisthesis and mild disc bulge. Slight impression on the ventral thecal sac without significant spinal canal stenosis. Bulging eccentric towards the le ft contributes to moderate left neural foraminal stenosis. At L3-L4, minimal disc bulge and mild ligamentum flavum thickening. No spinal canal stenosis. Change s contribute to mild bilateral neuroforaminal stenosis. At L4-L5, there is advanced hypertrophic facet arthropathy with grade 1 anterolisthesis, ligamentum f lavum thickening, and mild disc bulge. Mild circumferential narrowing of the thecal sac without signi ficant spinal canal stenosis. Changes contribute to [id number] bilateral neural foraminal steno sis. At L5-S1, there is facet arthropathy with moderate right and mild left neural foraminal stenosis. IMPRESSION: 1. MILD MULTILEVEL DEGENERATIVE DISC DISEASE. NO LARGE FOCAL DISC HERNIATION OR MEMO CANAL COMPROMIS E. THERE IS MILD OVERALL NARROWING OF THE SPINAL CANAL AT L4-L5. 2. ADVANCED HYPERTROPHIC FACET ARTHROPATHY ESPECIALLY LOWER CERVICAL SPINE. THERE ARE DEGENERATIVE GR DMITRY 1 SPONDYLOLISTHESES AT L1-L2, L2-L3, AND L4-L5. 3. STABLE MILD NEUROFORAMINAL STENOSES OUTLINED ABOVE. ECCENTRIC DISC BULGE TOWARDS THE LEFT CONTR IBUTES TO MODERATE LEFT NEURAL FORAMINAL STENOSIS AT L2-L3. 4. MILD TO MODERATE BILATERAL NEURAL FORAMINAL NARROWING AT L4-L5 AND MODERATE ON THE RIGHT AT L5-S1.
== END ==
LOC: RADPROMAIN 07:53
PROVIDERS: ATTEND Neurological Surgery
DX: M48.061 Spinal stenosis, lumbar region without neurogenic claudication (principal); M47.812 Spondylosis without myelopathy or radiculopathy, cervical region; M51.36 Other intervertebral disc degeneration, lumbar region; F41.9 Anxiety disorder, unspecified; F31.9 Bipolar disorder, unspecified; M19.90 Unspecified osteoarthritis, unspecified site; I48.91 Unspecified atrial fibrillation; G47.30 Sleep apnea, unspecified; M79.7 Fibromyalgia; Z79.899 Other long term (current) drug therapy; Z98.890 Other specified postprocedural states; Z88.5 Allergy status to narcotic agent
CPT/HCPCS: 62304; 72132; J2001; Q9966

== ENCOUNTER → 2022-10-10 | Outpatient (CLI) | payer MEDICARE ==
[2022-10-10 13:34] LABS: HGB 13.6 d/dL (12.0-15.0); MCHC 32.4 d/dL (32.0-37.0); MCV 92.7 FL (80.0-97.0); Mean Platelet Volume 10.6 FL (9.5-12.2); NRBC Per 100 WBC 0 X 10*3/uL (0.00-0.01); Platelet Count 314 X 10*3/uL (140-440); RBC 4.53 X 10*6/uL (4.10-5.20); RDW 14.3 % (11.5-14.5); WBC 4.44 X 10*3/uL (4.50-10.00)
[2022-10-10 13:46] LABS: ALT 15 U/L (8-44); AST 18 U/L (13-35); Albumin 4.5 d/dL (3.8-4.9); Albumin/Globulin Ratio 1.73 Ratio (1.60-3.17); Alkaline Phosphatase 78 U/L (41-126); BUN/Creat Ratio 14.62 Ratio (12.00-20.00); Blood Urea Nitrogen 11.7 mg/dL (9.0-27.0); Calcium 9.5 mg/dL (8.7-10.3); Carbon Dioxide 22.2 mmol/L (21.6-31.8); Chloride 96 mmol/L (96-109); Chol/HDL Ratio 2.34 Ratio; Globulin 2.6 d/dL (1.6-3.3); Glucose 104 mg/dL (70-110); LDL Cholesterol,Calculated 119.1 mg/dL (0.0-131.0); Potassium 4.4 mmol/L (3.5-5.5); Sodium 130 mmol/L (135-145); Total Bilirubin 0.4 mg/dL (0.3-1.2); Total Protein 7.1 d/dL (6.2-8.2); VLDL Calculation 10.66 mg/dL (5.00-40.00)
== END | disposition home or self-care (01) ==
LOC: LABWHC1 08:29
PROVIDERS: ATTEND Internal Medicine
DX: F31.63 Bipolar disorder, current episode mixed, severe, without psychotic features (principal)
CPT/HCPCS: 36415; 80053; 80061; 83036; 84443; 85027

== ENCOUNTER 2023-05-22 07:11 | Emergency (ER) | payer MEDICARE ==
[2023-05-22 07:24] VITALS: PULSE 75; RESP 18; TEMP 98.7
--- NOTE | 2023-05-22 08:17 | ED ---
URI HPI - General Chief Complaint: Upper Respiratory Infection Stated Complaint: covid Time Seen by Provider: 05/22/23 07:14 Source: patient, RN notes reviewed Mode of arrival: ambulatory Limitations: no limitations - History of Present Illness Initial Comments: 67-year-old female presents emergency department complaining of cough congestion fever chills and bodyaches. Symptoms started over the last 2 days. Patient is concerned she may have COVID-19. She denies any chest pain. She has minimal shortness of breath no GI symptoms. - Related Data Home Medications Medication Instructions Recorded Confirmed QUEtiapine [SEROquel] 300 mg PO HS PRN 01/15/18 04/24/22 Hydrocortisone Cream 1 applic TOPICAL DAILY PRN 03/21/20 04/24/22 [Hydrocortisone 2.5% Cream] Atorvastatin [Lipitor] 40 mg PO DAILY 04/03/21 04/24/22 Dicyclomine HCl 20 mg PO TID PRN 04/03/21 04/24/22 Esomeprazole Magnesium [NexIUM] 40 mg PO DAILY PRN 04/03/21 04/24/22 Melatonin [Melatonin ER] 20 mg PO HS PRN 04/03/21 04/24/22 Zolpidem [Ambien] 10 mg PO HS PRN 05/14/21 04/24/22 LORazepam [Ativan] 1 - 2 mg PO BID PRN 03/31/22 04/24/22 Potassium Citrate 99 mg PO DAILY 03/31/22 04/24/22 amLODIPine [Norvasc] 2.5 mg PO DAILY 03/31/22 04/24/22 Aspirin 81 mg PO DAILY 04/09/22 04/24/22 Ibuprofen [Motrin] 600 mg PO Q6HR PRN 04/09/22 04/24/22 Levothyroxine Sodium [Synthroid] 67 mcg PO DAILY@0630 04/09/22 04/24/22 Rizatriptan Benzoate [Rizatriptan] 10 mg PO DAILY PRN 04/24/22 04/24/22 Previous Rx's Medication Instructions Recorded Apixaban [Eliquis] 5 mg PO BID #60 tab 09/28/18 Allergies Allergy/AdvReac Type Severity Reaction Status Date / Time codeine AdvReac Nausea Verified 05/22/23 07:17 trazodone AdvReac NIGHTMARES Verified 05/22/23 07:17 Review of Systems ROS Statement: Those systems with pertinent positive or pertinent negative responses have been documented in the HPI. ROS Other: All systems not noted in ROS Statement are negative. Past Medical History Past Medical History: Atrial Fibrillation Additional Past Medical History / Comment(s): Migraines, past ETOH abuse but no alcohol since prior 1996, seizure associated with alcohol withdrawal prior 1996, small bowel ileus, RLS, arthritis multiple joints, hypothyroid, scoliosis, sees chiropractor. Sinus problems with seasonal ALLERGIES. IBS. Osteopenia. , states having problems swallowing meat and pills- states hx of EGD with dilation. History of Any Multi-Drug Resistant Organisms: None Reported Past Surgical History: Cholecystectomy Additional Past Surgical History / Comment(s): edmond fundloplasty then takedown which pt states involved her pancreas, pubovaginal sling, bilateral carpal tunnel releases, L knee ligament release, bilateral feet bunionectomy/reconstruction, several trigger fingers/toes, EGD with dilation, colonoscopy, spleenectomy. Bunionectomy. Wrist surgery. bladder stimulator placed for overactive bladder- battery placed in buttox. Past Anesthesia/Blood Transfusion Reactions: No Reported Reaction Past Psychological History: Anxiety, Bipolar Smoking Status: Never smoker Past Alcohol Use History: None Reported Past Drug Use History: None Reported - Past Family History Sister(s) Family Medical History: Cancer, Diabetes Mellitus Additional Family Medical History / Comment(s): breast cancer Brother(s) Family Medical History: Cancer, Diabetes Mellitus Additional Family Medical History / Comment(s): bone Father Family Medical History: Myocardial Infarction ([place]) Mother Family Medical History: Cancer, Diabetes Mellitus, Myocardial Infarction ([place]) Additional Family Medical History / Comment(s): lung cancer and pulmonary edema General Exam Limitations: no limitations General appearance: alert, in no apparent distress Head exam: Present: atraumatic, normocephalic, normal inspection Eye exam: Present: normal appearance, PERRL, EOMI. Absent: scleral icterus, conjunctival injection, periorbital swelling ENT exam: Present: normal exam, mucous membranes moist Neck exam: Present: normal inspection. Absent: tenderness, meningismus, lymphadenopathy Respiratory exam: Present: normal lung sounds bilaterally. Absent: respiratory distress, wheezes, rales, rhonchi, stridor Cardiovascular Exam: Present: regular rate, normal rhythm, normal heart sounds. Absent: systolic murmur, diastolic murmur, rubs, gallop, clicks GI/Abdominal exam: Present: soft, normal bowel sounds. Absent: distended, tenderness, guarding, rebound, rigid Course Vital Signs 05/22/23 05/22/23 07:13 08:49 Temperature 98.7 F Pulse Rate 75 75 Respiratory 18 18 Rate Blood Pressure 166/74 165/70 O2 Sat by Pulse 97 99 Oximetry Medical Decision Making - Medical Decision Making Was pt. sent in by a medical professional or institution (, PA, NURSE SEXUAL ASSAULT, urgent care, hospital, or correction...) When possible be specific @ -No Did you speak to anyone other than the patient for history (EMS, parent, family, police, friend...)? What history was obtained from this source @ -No Did you review nursing and triage notes (agree or disagree)? Why? @ -I reviewed and agree with nursing and triage notes Were old charts reviewed (outside hosp., previous admission, EMS record, old EKG, old radiological studies, urgent care reports/EKG's, correction records)? Report findings @ -No old charts were reviewed Differential Diagnosis (chest pain, altered mental status, abdominal pain women, abdominal pain men, vaginal bleeding, weakness, fever, dyspnea, syncope, headache, dizziness, GI bleed, back pain, seizure, CVA, palpatations, mental health, musculoskeletal)? @ -[COVID 19, RSV, influenza, pneumonia, acute bronchitis, URI, this list is not all inclusive EKG interpreted by me (3pts min.). @ -None X-rays interpreted by me (1pt min.). @ -None done CT interpreted by me (1pt min.). @ -None done U/S interpreted by me (1pt. min.). @ -None done What testing was considered but not performed or refused? (CT, X-rays, U/S, labs)? Why? @ -None What meds were considered but not given or refused? Why? @ -None Did you discuss the management of the patient with other professionals (professionals i.e. , [facility], NURSE SEXUAL ASSAULT, lab, RT, psych nurse, social media community manager, machine stripper, teacher, radio officer, case resource manager)? Give summary @ -No Was smoking cessation discussed for >3mins.? @ -No Was critical care preformed (if so, how long)? @ -No Were there social determinants of health that impacted care today? How? (Homelessness, low income, unemployed, alcoholism, drug addiction, transportation, low edu. Level, literacy, decrease access to med. care, [facility], rehab)? @ -No Was there de-escalation of care discussed even if they declined (Discuss DNR or withdrawal of care, Hospice)? DNR status @ -No What co-morbidities impacted this encounter? (DM, HTN, Smoking, COPD, CAD, Cancer, CVA, ARF, Chemo, Hep., AIDS, mental health diagnosis, sleep apnea, morbid obesity)? @ -None Was patient admitted / discharged? Hospital course, mention meds given and route, prescriptions, significant lab abnormalities, going to OR and other pertinent info. @ -[Discharge patient has a viral URI negative of influenza, COVID-19 and RSV. Patient is in no signs distress vitals are stable. Undiagnosed new problem with uncertain prognosis? @ -No Drug Therapy requiring intensive monitoring for toxicity (Heparin, Nitro, Insulin, Cardizem)? @ -No Were any procedures done? @ -No Diagnosis/symptom? @ -[Viral URI Acute, or Chronic, or Acute on Chronic? @ -Acute Uncomplicated (without systemic symptoms) or Complicated (systemic symptoms)? @ -[Uncomplicated Side effects of treatment? @ -[No Exacerbation, Progression, or Severe Exacerbation? @ -No Poses a threat to life or bodily function? How? (Chest pain, [place], [place], pneumonia, PE, COPD, DKA, ARF, appy, cholecystitis, CVA, Diverticulitis, Homicidal, Suicidal, threat to staff... and all critical care pts) @ -No - Lab Data Lab Results 05/22/23 Range/Units 07:22 Influenza Type A (PCR) Not Detected (Not Detectd) Influenza Type B (PCR) Not Detected (Not Detectd) RSV (PCR) Not Detected (Not Detectd) SARS-CoV-2 (PCR) Not Detected (Not Detectd) Disposition Clinical Impression: URI (upper respiratory infection) Disposition: HOME SELF-CARE Condition: Stable Instructions (If sedation given, give patient instructions): Upper Respiratory Infection (ED) Additional Instructions: Please return to the Emergency Department if symptoms worsen or any other concerns. Is patient prescribed a controlled substance at d/c from ED?: No Referrals: Klarissa Ferraro DO [Primary Care Provider] - 1-2 days Time of Disposition: 08:43
[2023-05-22 08:53] VITALS: BP 165/70
== END 2023-05-22 08:50 | disposition home or self-care (01) ==
LOC: EC 07:11
DX: J06.9 Acute upper respiratory infection, unspecified (principal); E03.9 Hypothyroidism, unspecified; F31.9 Bipolar disorder, unspecified; F41.9 Anxiety disorder, unspecified; Z20.822 Contact with and (suspected) exposure to COVID-19; Z79.890 Hormone replacement therapy; Z79.899 Other long term (current) drug therapy; Z88.5 Allergy status to narcotic agent; Z90.49 Acquired absence of other specified parts of digestive tract
CPT/HCPCS: 87636; 99284

== ENCOUNTER → 2023-06-16 | Day surgery (SDC) | payer MEDICARE ==
[~2023-06-16] MED LIST changes: -ACETAMINOPHEN TAB 500 MG TAB PO PRN; +LACTATED RINGERS 1,000 ML IV SCH; +LIDOCAINE 1% (10MG/ML) FOR IV START INTRADERMA PRN; +LIDOCAINE 2% (PF) 20 MG/ML 5 ML VIAL ONE; +ONDANSETRON 4 MG/2 ML VIAL IVP PRN; +PROPOFOL 10 MG/ML 20 ML VIAL IV ONE; -diazePAM 5 MG TAB PO PRN
[2023-06-16] MEDS: LACTATED RINGERS 1,000 ML IV ONE (08:20)
[2023-06-16 08:40] VITALS: TEMP 97.1
--- NOTE | 2023-06-16 09:14 | P.PCN ---
Date of Procedure: 06/16/23 Procedure(s) Performed: BRIEF HISTORY: Patient is a 67-year-old, pleasant, white female with long history of GERD of several years duration. She is status post Sveta fundoplication 2015. She has been on Nexium for many years but she quit about 6 months ago. Lately has been having worsening heartburn and dysphagia and hence was restarted back on Nexium 40 mg daily and she is doing much better. She is scheduled for an upper endoscopy to evaluate further. PROCEDURE PERFORMED: Esophagogastroduodenoscopy. With biopsy PREOPERATIVE DIAGNOSIS: . History of GERD/intermittent dysphagia to solids. IV sedation per anesthesia. PROCEDURE: After informed consent was obtained, the patient was brought into the endoscopy unit. IV sedation was administered by Anesthesia under continuous monitoring. Initially the Olympus GIF-140 video endoscope was inserted into the mouth. Esophagus intubated without any difficulty. It was gradually advanced into the stomach and duodenum and carefully examined. The bulb and the second part of the duodenum appeared normal. The scope at this time was withdrawn to t he stomach, adequately insufflated with air, and upon careful examination, mucosa of the antrum, had mild patchy areas of erythema consistent with gastritis and biopsies were done from this area. Mucosa of the body, cardia and the fundus appeared normal. Under direction there was intact Sveta fundoplication noted. The scope was then withdrawn into the esophagus. Small hiatal hernia noted. The GE junction was located at 36 cm from the incisors. There was once a fissure ulceration at the GE junction consistent with LA grade C reflux esophagitis. No esophageal stricture identified. The rest of the esophagus appeared normal. The patient tolerated the procedure well. IMPRESSION: 1. One superficial ulceration at the GE junction consistent with LA grade C reflux esophagitis. 2. Small hiatal hernia 3. Mild antral gastritis. RECOMMENDATIONS: The findings of this examination were discussed with the patient as well as a family. Follow with the biopsy results. She was advised to continue with Nexium 40 mg daily and follow antrum reflux measures. She was briefly educated about diet modification..
[2023-06-16 09:53] VITALS: BP 137/70; PULSE 64; RESP 16
== END ==
LOC: ORWHC2ENDO 07:51
PROVIDERS: ATTEND Internal Medicine Gastroenterology
DX: K29.50 Unspecified chronic gastritis without bleeding (principal); K21.9 Gastro-esophageal reflux disease without esophagitis; K44.9 Diaphragmatic hernia without obstruction or gangrene; K25.9 Gastric ulcer, unspecified as acute or chronic, without hemorrhage or perforation; I10 Essential (primary) hypertension; I48.91 Unspecified atrial fibrillation; G47.33 Obstructive sleep apnea (adult) (pediatric); E03.9 Hypothyroidism, unspecified; M19.90 Unspecified osteoarthritis, unspecified site; G40.909 Epilepsy, unspecified, not intractable, without status epilepticus; M79.7 Fibromyalgia; F41.9 Anxiety disorder, unspecified; Z79.01 Long term (current) use of anticoagulants; Z79.51 Long term (current) use of inhaled steroids; Z79.899 Other long term (current) drug therapy; Z90.49 Acquired absence of other specified parts of digestive tract
CPT/HCPCS: 88305; 43239; J2704; J2001

== ENCOUNTER 2024-06-14 05:20 | Emergency (ER) | payer MEDICARE ==
--- NOTE | 2024-06-14 05:26 | ED ---
URI HPI - General Chief Complaint: Upper Respiratory Infection Stated Complaint: cough Time Seen by Provider: 06/14/24 05:25 Source: patient, RN notes reviewed, old records reviewed Mode of arrival: ambulatory Limitations: no limitations - History of Present Illness Initial Comments: This is a 68-year-old female to the ER for evaluation today. [place] regards to upper respiratory symptoms cough congestion runny nose cannot catch her breath fevers recurrent fevers. Patient believes she has been dealing with upper respiratory symptoms for couple weeks now but about a week ago had fevers up and on antibiotics been on steroids with no improvement in symptoms, symptoms do appear to get better for couple days but last night into today they are much worse MD Complaint: fever, cough, sore throat, rhinorrhea, nasal congestion, sinus pain -: week(s) Severity: moderate Severity scale (1-10): 5 Consistency: intermittent Improves With: nothing Worsens With: nothing Context: sick contacts Associated Symptoms: fever, myalgias, nasal congestion, sore throat Treatments Prior to Arrival: none - Related Data Home Medications Medication Instructions Recorded Confirmed QUEtiapine [SEROquel] 200 mg PO HS PRN 01/15/18 06/15/23 Atorvastatin [Lipitor] 40 mg PO DAILY 04/03/21 06/15/23 Aspirin 81 mg PO DAILY 04/09/22 06/15/23 Levothyroxine Sodium [Synthroid] 88 mcg PO DAILY@0630 04/09/22 06/15/23 ARIPiprazole [Abilify] 5 mg PO DAILY 06/15/23 06/15/23 Solifenacin Succinate [Vesicare] 5 mg PO DAILY 06/15/23 06/15/23 Previous Rx's Medication Instructions Recorded Apixaban [Eliquis] 5 mg PO BID #60 tab 09/28/18 Allergies Allergy/AdvReac Type Severity Reaction Status Date / Time codeine AdvReac Nausea Verified 06/14/24 05:24 trazodone AdvReac NIGHTMARES Verified 06/14/24 05:24 Review of Systems ROS Statement: Those systems with pertinent positive or pertinent negative responses have been documented in the HPI. ROS Other: All systems not noted in ROS Statement are negative. Past Medical History Past Medical History: Atrial Fibrillation Additional Past Medical History / Comment(s): Migraines, past ETOH abuse but no alcohol since prior 1996, seizure associated with alcohol withdrawal prior 1996, small bowel ileus, RLS, arthritis multiple joints, hypothyroid, scoliosis, sees chiropractor. Sinus problems with seasonal ALLERGIES. IBS. Osteopenia. , states having problems swallowing meat and pills- states hx of EGD with dilation. History of Any Multi-Drug Resistant Organisms: None Reported Past Surgical History: Cholecystectomy Additional Past Surgical History / Comment(s): edmond fundloplasty then takedown which pt states involved her pancreas, pubovaginal sling, bilateral carpal tunnel releases, L knee ligament release, bilateral feet bunionectomy/reconstruction, several trigger fingers/toes, EGD with dilation, colonoscopy, spleenectomy. Bunionectomy. Wrist surgery. bladder stimulator placed for overactive bladder- battery placed in buttox. Past Anesthesia/Blood Transfusion Reactions: No Reported Reaction Past Psychological History: Anxiety, Bipolar Smoking Status: Never smoker Past Alcohol Use History: None Reported Past Drug Use History: None Reported - Past Family History Sister(s) Family Medical History: Cancer, Diabetes Mellitus Additional Family Medical History / Comment(s): breast cancer Brother(s) Family Medical History: Cancer, Diabetes Mellitus Additional Family Medical History / Comment(s): bone Father Family Medical History: Myocardial Infarction (CT) Mother Family Medical History: Cancer, Diabetes Mellitus, Myocardial Infarction (CT) Additional Family Medical History / Comment(s): lung cancer and pulmonary edema General Exam Limitations: no limitations General appearance: alert, in no apparent distress Head exam: Present: atraumatic, normocephalic, normal inspection Eye exam: Present: normal appearance, PERRL, EOMI. Absent: scleral icterus, conjunctival injection, periorbital swelling ENT exam: Present: normal exam, mucous membranes moist Neck exam: Present: normal inspection. Absent: tenderness, meningismus, lymphadenopathy Respiratory exam: Present: normal lung sounds bilaterally. Absent: respiratory distress, wheezes, rales, rhonchi, stridor Cardiovascular Exam: Present: regular rate, normal rhythm, normal heart sounds. Absent: systolic murmur, diastolic murmur, rubs, gallop, clicks GI/Abdominal exam: Present: soft, normal bowel sounds. Absent: distended, tenderness, guarding, rebound, rigid Extremities exam: Present: normal inspection, full ROM, normal capillary refill. Absent: tenderness, pedal edema, joint swelling, calf tenderness Back exam: Present: normal inspection Neurological exam: Present: alert, oriented X3, CN II-XII intact Psychiatric exam: Present: normal affect, normal mood Skin exam: Present: warm, dry, intact, normal color. Absent: rash Course Vital Signs 06/14/24 06/14/24 05:21 06:46 Temperature 99.7 F H Pulse Rate 114 H Respiratory 18 18 Rate Blood Pressure 145/72 O2 Sat by Pulse 97 Oximetry - Reevaluation(s) Reevaluation #1: 06/14/24 06:14 Medical records reviewed Reevaluation #2: 06/14/24 06:14 Patient symptoms improved Reevaluation #3: 06/14/24 06:14 Patient informed of results questions answered Reevaluation #4: Was pt. sent in by a medical professional or institution (HAILEY Sanders, MEAT STUFFER, urgent care, hospital, or penitentiary...) When possible be specific @ -no Did you speak to anyone other than the patient for history (EMS, parent, family, police, friend...)? What history was obtained from this source @ -no Did you review nursing and triage notes (agree or disagree)? Why? @ -agree Are old charts reviewed (outside hosp., previous admission, EMS record, old EKG, old radiological studies, urgent care reports/EKG's, penitentiary records)? Report findings @ -yes Differential Diagnosis (chest pain, altered mental status, abdominal pain women, abdominal pain men, vaginal bleeding, weakness, fever, dyspnea, syncope, headache, dizziness, GI bleed, back pain, seizure, CVA, palpatations, mental health, musculoskeletal)? @ -prior EKG interpreted by me (3pts min.). @ -yes X-rays interpreted by me (1pt min.). @ -yes negative for acute disease CT interpreted by me (1pt min.). @ -no U/S interpreted by me (1pt. min.). @ -no What testing was considered but not performed or refused? (CT, X-rays, U/S, labs)? Why? @ -none What meds were considered but not given or refused? Why? @ -none Did you discuss the management of the patient with other professionals (professionals i.e. , PA, MEAT STUFFER, lab, RT, psych nurse, social worker health services, web services developer, teacher, commercial credit officer, shelter case manager)? Give summary @ -no Was smoking cessation discussed for >3mins.? @ -no Was critical care preformed (if so, how long)? @ -no Were there social determinants of health that impacted care today? How? (Homelessness, low income, unemployed, alcoholism, drug addiction, transportation, low edu. Level, literacy, decrease access to med. care, senior living, rehab)? @ -none Was there de-escalation of care discussed even if they declined (Discuss DNR or withdrawal of care, Hospice)? DNR status @ -no What co-morbidities impacted this encounter? (DM, HTN, Smoking, COPD, CAD, Cancer, CVA, ARF, Chemo, Hep., AIDS, mental health diagnosis, sleep apnea, morbid obesity)? @ -none Was patient admitted / discharged? Hospital course, mention meds given and route, prescriptions, significant lab abnormalities, going to OR and other pertinent info. @ - Undiagnosed new problem with uncertain prognosis? @ -no Drug Therapy requiring intensive monitoring for toxicity (Heparin, Nitro, Insulin, Cardizem)? @ -no Were any procedures done? @ -no Diagnosis/symptom? @ - Acute, or Chronic, or Acute on Chronic? @ -Acute Uncomplicated (without systemic symptoms) or Complicated (systemic symptoms)? @ -Complicated Side effects of treatment? @ -no Exacerbation, Progression, or Severe Exacerbation? @ -exacerbation Poses a threat to life or bodily function? How? (Chest pain, USA, CT, pneumonia, PE, COPD, DKA, ARF, appy, cholecystitis, CVA, Diverticulitis, Homicidal, Suicidal, threat to staff... and all critical care pts) @ -yes Reevaluation #5: Differential Fever: Pneumonia, viral URI, endocarditis, myocarditis, pericarditis, otitis, sinusitis, peritonsillar Abscess, retropharyngeal Abscess, epiglottitis, peritonitis, appendicitis, Arleen cystitis, diverticulitis, hepatitis, colitis, UTI, PID, TOA, pyelonephritis, prostatitis, epididymitis, meningitis, encephalitis, pulmonary embolism, CVA, thyroid storm, pancreatitis, adrenal crisis, cavernous sinus thrombosis, this is not meant to be an all-inclusive list. Medical Decision Making - Medical Decision Making 68 female to ER for upper respiratory symptoms Disposition Clinical Impression: Upper respiratory tract infection, Bronchitis, Viral infection, Influenza Disposition: HOME SELF-CARE Condition: Good Instructions (If sedation given, give patient instructions): Upper Respiratory Infection (ED) Is patient prescribed a controlled substance at d/c from ED?: No Referrals: Klarissa Ferraro DO [Primary Care Provider] - 1-2 days Time of Disposition: 07:00
[2024-06-14] MEDS: AZITHROMYCIN 500 MG in SODIUM CHLORIDE 0.9% 250 ML IVPB STA (05:51)
[2024-06-14] MEDS: IPRATROPIUM-ALBUTEROL 3 ML NEB INHALATION STA (05:51)
[2024-06-14] MEDS: SODIUM CHLORIDE 0.9% 1,000 ML IV STA (05:51)
[2024-06-14] MEDS: BENZONATATE 100 MG CAP PO STA (06:30)
[2024-06-14] MEDS: dexAMETHasone 2 MG TAB PO STA (06:30)
[2024-06-14] MEDS: IBUPROFEN 800 MG TAB PO STA (06:31)
[2024-06-14] MEDS: ACETAMINOPHEN TAB 500 MG TAB PO STA (06:31)
--- NOTE | 2024-06-14 06:47 | XR ---
EXAM: XR Chest, 2 Views CLINICAL HISTORY: ITS.REASON XR Reason: difficulty breathing TECHNIQUE: Frontal and lateral views of the chest. COMPARISON: 04/04/21 FINDINGS: Lungs: Mild streaky density in the left lung base likely atelectasis. Slight prominent lung markings, unchanged Pleural space: Unremarkable. No pneumothorax. Heart: Cardiovascular silhouette within normal limits. Mediastinum: Stable and prominent with tortuous thoracic aorta. Bones/joints: Unremarkable. No acute fracture. Vasculature: Tortuous thoracic aorta, again seen. IMPRESSION: 1. Mild left basilar atelectasis. 2. No dense consolidation or effusion
[2024-06-14 08:02] LABS: Influenza A Not Detected (Not Detectd); Influenza B Not Detected (Not Detectd); RSV Not Detected (Not Detectd)
[2024-06-14] MEDS: FLUTICASONE NASAL 50MCG/SPRAY 16GM BTL EA NOSTRIL SCH (08:17)
[2024-06-14 08:40] VITALS: BP 140/68; PULSE 90; RESP 20; TEMP 98.6
== END 2024-06-14 08:40 | disposition home or self-care (01) ==
LOC: EC 05:20
DX: J10.1 Influenza due to other identified influenza virus with other respiratory manifestations (principal); J40 Bronchitis, not specified as acute or chronic
CPT/HCPCS: 87636; 71046; 99284; J8540

== ENCOUNTER 2024-09-09 18:43 | Emergency (ER) | payer MEDICARE ==
[2024-09-09 18:48] VITALS: PULSE 66
[2024-09-09] MEDS: ACET/COD 300 MG/30 MG STARTER PACK 6 TAB BTL PO STA (19:46)
[2024-09-09 19:48] VITALS: BP 175/83; RESP 20; TEMP 98.3
--- NOTE | 2024-09-29 06:21 | ED ---
General Adult HPI - General Chief complaint: Abdominal Pain Stated complaint: Abd pain Time Seen by Provider: 09/09/24 18:50 Source: patient, RN notes reviewed Mode of arrival: ambulatory Limitations: no limitations - History of Present Illness Initial comments: 69-year-old female presents to the emergency department for evaluation of abdominal pain. Patient states that she was evaluated here yesterday for the same symptoms. She had labs and imaging performed. She was noted to have a mild UTI and colitis. She states that she ran out of her pain medication at home and is looking for pain control today. She denies any new symptoms at this time. Denies any fever, chills. - Related Data Home Medications Medication Instructions Recorded Confirmed QUEtiapine [SEROquel] 300 mg PO HS PRN 01/15/18 09/26/24 Levothyroxine Sodium [Synthroid] 88 mcg PO DAILY@0630 04/09/22 09/26/24 ARIPiprazole [Abilify] 5 mg PO DAILY 06/15/23 09/26/24 Solifenacin Succinate [Vesicare] 5 mg PO DAILY PRN 06/15/23 09/26/24 traMADol HCL 50 mg PO Q6H 09/26/24 09/26/24 Previous Rx's Medication Instructions Recorded Apixaban [Eliquis] 5 mg PO BID #60 tab 09/28/18 Allergies Allergy/AdvReac Type Severity Reaction Status Date / Time codeine AdvReac Nausea Verified 09/26/24 11:03 trazodone AdvReac NIGHTMARES Verified 09/26/24 11:03 Review of Systems ROS Statement: Those systems with pertinent positive or pertinent negative responses have been documented in the HPI. ROS Other: All systems not noted in ROS Statement are negative. Past Medical History Past Medical History: Atrial Fibrillation Additional Past Medical History / Comment(s): Migraines, past ETOH abuse but no alcohol since prior 1996, seizure associated with alcohol withdrawal prior 1996, small bowel ileus, RLS, arthritis multiple joints, hypothyroid, scoliosis, sees chiropractor. Sinus problems with seasonal ALLERGIES. IBS. Osteopenia. , states having problems swallowing meat and pills- states hx of EGD with dilation, colitis, History of Any Multi-Drug Resistant Organisms: None Reported Past Surgical History: Cholecystectomy Additional Past Surgical History / Comment(s): edmond fundloplasty then takedown which pt states involved her pancreas, pubovaginal sling, bilateral carpal tunnel releases, L knee ligament release, bilateral feet bunionectomy/reconstruction, several trigger fingers/toes, EGD with dilation, colonoscopy, spleenectomy. Bunionectomy. Wrist surgery. bladder stimulator placed for overactive bladder- battery placed in buttox. Past Anesthesia/Blood Transfusion Reactions: No Reported Reaction Past Psychological History: Anxiety, Bipolar Smoking Status: Never smoker Past Alcohol Use History: None Reported Past Drug Use History: None Reported - Past Family History Sister(s) Family Medical History: Cancer, Diabetes Mellitus Additional Family Medical History / Comment(s): breast cancer Brother(s) Family Medical History: Cancer, Diabetes Mellitus Additional Family Medical History / Comment(s): bone Father Family Medical History: Myocardial Infarction ([place]) Mother Family Medical History: Cancer, Diabetes Mellitus, Myocardial Infarction ([place]) Additional Family Medical History / Comment(s): lung cancer and pulmonary edema General Exam Limitations: no limitations General appearance: alert, in no apparent distress Head exam: Present: atraumatic, normocephalic, normal inspection Eye exam: Present: normal appearance, PERRL, EOMI. Absent: scleral icterus, conjunctival injection, periorbital swelling ENT exam: Present: normal exam, mucous membranes moist Respiratory exam: Present: normal lung sounds bilaterally. Absent: respiratory distress, wheezes, rales, rhonchi, stridor Cardiovascular Exam: Present: regular rate, normal rhythm, normal heart sounds. Absent: systolic murmur, diastolic murmur, rubs, gallop, clicks GI/Abdominal exam: Present: soft, tenderness (Left lower abdomen), normal bowel sounds. Absent: distended, guarding, rebound, rigid Extremities exam: Present: normal inspection, full ROM, normal capillary refill. Absent: tenderness, pedal edema, joint swelling, calf tenderness Neurological exam: Present: alert, oriented X3 Psychiatric exam: Present: normal affect, normal mood Skin exam: Present: warm, dry, intact, normal color. Absent: rash Course Vital Signs 09/09/24 09/09/24 18:45 19:46 Temperature 98.1 F 98.3 F Pulse Rate 66 66 Respiratory 18 20 Rate Blood Pressure 169/79 175/83 O2 Sat by Pulse 98 99 Oximetry Medical Decision Making - Medical Decision Making Was pt. sent in by a medical professional or institution ([facility] Sanders, HAMPER MAKER MACHINE, urgent care, hospital, or fci...) When possible be specific @ -No Did you speak to anyone other than the patient for history (EMS, parent, family, police, friend...)? What history was obtained from this source @ -No Did you review nursing and triage notes (agree or disagree)? Why? @ -I reviewed and agree with nursing and triage notes Were old charts reviewed (outside hosp., previous admission, EMS record, old EKG, old radiological studies, urgent care reports/EKG's, fci records)? Report findings @ -I reviewed laboratory studies and CT scan from yesterday's visit revealing findings consistent with colitis Differential Diagnosis (chest pain, altered mental status, abdominal pain women, abdominal pain men, vaginal bleeding, weakness, fever, dyspnea, syncope, headache, dizziness, GI bleed, back pain, seizure, CVA, palpatations, mental health, musculoskeletal)? @ -Differential Abdominal Pain Women: Appendicitis, Cholecystitis, diverticulosis, ischemic bowel, pancreatitis, hepatitis, UTI, gastroenteritis, AAA, incarcerated hernia, bowel obstruction, constipation, inflammatory bowel, hepatitis, peptic ulcer disease, splenic infarction, perforated viscus, vulvitis, ovarian torsion, PID, kidney stone, placenta abruption, this is not meant to be an all-inclusive list EKG interpreted by me (3pts min.). @ -None X-rays interpreted by me (1pt min.). @ -None done CT interpreted by me (1pt min.). @ -None done U/S interpreted by me (1pt. min.). @ -None done What testing was considered but not performed or refused? (CT, X-rays, U/S, labs)? Why? @ -None What meds were considered but not given or refused? Why? @ -None Did you discuss the management of the patient with other professionals (professionals i.e. HAILEY Sanders, HAMPER MAKER MACHINE, lab, RT, psych nurse, social service coordinator, pump assembler, teacher, ecological technical officer, high risk case manager)? Give summary @ -No Was smoking cessation discussed for >3mins.? @ -No Was critical care preformed (if so, how long)? @ -No Were there social determinants of health that impacted care today? How? (Homelessness, low income, unemployed, alcoholism, drug addiction, transportation, low edu. Level, literacy, decrease access to med. care, senior living, rehab)? @ -No Was there de-escalation of care discussed even if they declined (Discuss DNR or withdrawal of care, Hospice)? DNR status @ -No What co-morbidities impacted this encounter? (DM, HTN, Smoking, COPD, CAD, Cancer, CVA, ARF, Chemo, Hep., AIDS, mental health diagnosis, sleep apnea, morbid obesity)? @ -None Was patient admitted / discharged? Hospital course, mention meds given and route, prescriptions, significant lab abnormalities, going to OR and other [facility] [place] info. @ -Discharge. Patient presented to the emergency department for evaluation of abdominal pain. Patient states that she was here yesterday and had imaging performed. I reviewed this finding consistent with colitis. She was started on antibiotics. Patient is concerned because she ran out of her pain medication at home and is looking for pain control today. She denies any new symptoms at this time. She states that the symptoms are consistent with yesterday. Patient provided medication for pain control in the emergency department and prescription sent to the patient's pharmacy. She will be discharged home. She is understanding agreeable with plan. Patient advised follow-up with her primary care provider. She is understanding agreeable with plan.. Patient stable at time of discharge. Case discussed with Dr. Man Undiagnosed new problem with uncertain prognosis? @ -No Drug Therapy requiring intensive monitoring for toxicity (Heparin, Nitro, Insulin, Cardizem)? @ -No Were any procedures done? @ -No Diagnosis/symptom? @ -Colitis Acute, or Chronic, or Acute on Chronic? @ -Acute Uncomplicated (without systemic symptoms) or Complicated (systemic symptoms)? @ -Uncomplicated Side effects of treatment? @ -No Exacerbation, Progression, or Severe Exacerbation? @ -No Poses a threat to life or bodily function? How? (Chest pain, USA, [place], pneumonia, PE, COPD, DKA, ARF, appy, cholecystitis, CVA, Diverticulitis, Homicidal, Suicidal, threat to staff... and all critical care pts) @ -No Disposition Clinical Impression: Colitis Disposition: HOME SELF-CARE Condition: Good Is patient prescribed a controlled substance at d/c from ED?: No Referrals: Klarissa Ferraro DO [Primary Care Provider] - 1-2 days
== END 2024-09-09 19:48 | disposition home or self-care (01) ==
LOC: EC 18:43
DX: K52.9 Noninfective gastroenteritis and colitis, unspecified (principal); Z88.5 Allergy status to narcotic agent; Z88.8 Allergy status to other drugs, medicaments and biological substances
CPT/HCPCS: 99284

== ENCOUNTER 2024-09-26 10:11 | Day surgery (SDC) | payer MEDICARE ==
[2024-09-26] MEDS ORDERED: LIDOCAINE 1% (10MG/ML) FOR IV START INTRADERMA PRN (11:13)
[2024-09-26 11:20] VITALS: TEMP 98.1
[2024-09-26] MEDS: IV FLUID CONTINUATION 1,000 ML IV ONE (11:25)
[2024-09-26] MEDS: LACTATED RINGERS 1,000 ML IV SCH (11:25)
[2024-09-26] MEDS ORDERED: PROPOFOL 10 MG/ML 20 ML VIAL IV ONE (11:57)
--- NOTE | 2024-09-26 12:14 | P.PCN ---
Date of Procedure: 09/26/24 Procedure(s) Performed: BRIEF HISTORY: Patient is a 69-year-old pleasant white female scheduled for an elective colonoscopy as a part of evaluation of left lower quadrant abdominal pain for the last 6 weeks duration. Her pain was so intense she went to the emergency room and had a CT of the abdomen pelvis done which some thickening of the left colon and was treated with antibiotics. Currently on dicyclomine as needed.. PROCEDURE PERFORMED: Colonoscopy. PREOPERATIVE DIAGNOSIS: Intermittent left lower quadrant abdominal pain of 6 months duration. IV sedation per Anesthesia. PROCEDURE: After informed consent was obtained, the patient, was brought into the endoscopy unit. IV sedation was administered by Anesthesia under continuous monitoring. Digital rectal examination was normal. Initially the Olympus CF-160 flexible video colonoscope was then inserted in the rectum, gradually advanced i nto the cecum without any difficulty. Careful examination was performed as the scope was gradually being withdrawn. Ileocecal valve and the appendiceal orifice were visualized and appeared normal. Prep was excellent. Mucosa of the cecum, ascending colon, transverse colon, descending colon, sigmoid colon, and rectum appeared normal. Scattered sigmoid diverticulosis. Retroflexion was performed in the rectum and no lesions were seen. The patient tolerated the procedure well. IMPRESSION: Normal-appearing colon from rectum to cecum with no evidence of colorectal neoplasia. Scattered sigmoid diverticulosis. RECOMMENDATIONS: Findings of this examination were discussed with the patient as well as the family. Recommend a high-fiber diet and fiber supplements as needed. She was advised to have repeat screening colonoscopy in 10 years..
[2024-09-26 12:34] VITALS: BP 136/78; PULSE 79; RESP 18
== END 2024-09-26 12:45 | disposition home or self-care (01) ==
LOC: ORWHC2ENDO 10:11
PROVIDERS: ATTEND Internal Medicine Gastroenterology
DX: K57.30 Diverticulosis of large intestine without perforation or abscess without bleeding (principal); Z79.899 Other long term (current) drug therapy
CPT/HCPCS: 45378; J2704

== ENCOUNTER 2024-11-08 12:27 | Day surgery (SDC) | payer MEDICARE ==
[~2024-11-08 12:27] MED LIST changes: -LACTATED RINGERS 1,000 ML IV SCH; -LIDOCAINE 2% (PF) 20 MG/ML 5 ML VIAL ONE; -ONDANSETRON 4 MG/2 ML VIAL IVP PRN; -PROPOFOL 10 MG/ML 20 ML VIAL IV ONE
[2024-11-08] MEDS: IV FLUID CONTINUATION 1,000 ML IV ONE (13:52)
[2024-11-08 13:56] VITALS: TEMP 97.8
[2024-11-08] MEDS: LACTATED RINGERS 1,000 ML IV SCH (14:01)
[2024-11-08] MEDS ORDERED: PROPOFOL 10 MG/ML 20 ML VIAL IV ONE (14:44)
[2024-11-08] MEDS ORDERED: LIDOCAINE 1% INJ 10MG/ML (20 ML MDV) ONE (14:44)
--- NOTE | 2024-11-08 14:57 | P.PCN ---
Date of Procedure: 11/08/24 Procedure(s) Performed: BRIEF HISTORY: Patient is a 69-year-old, pleasant, white female scheduled of endoscopy for evaluation intermittent dysphagia to solids for the last 5 months duration. PROCEDURE PERFORMED: Esophagogastroduodenoscopy with balloon dilation. PREOPERATIVE DIAGNOSIS: Intermittent dysphagia to solids. IV sedation per anesthesia. PROCEDURE: After informed consent was obtained, the patient was brought into the endoscopy unit. IV conscious sedation was administered by Anesthesia under continuous monitoring. Initially the Olympus GIF-140 video endoscope was inserted into the mouth. Esophagus intubated without any difficulty. It was gradually advanced into the stomach and duodenum and carefully examined. The bulb and the second part of the duodenum appeared normal. The scope at this time was withdrawn to the stomach, adequately insufflated with air, and upon careful examination, mucosa of the antrum, body, cardia and the fundus appeared normal. The scope was then withdrawn into the esophagus. Small hiatal hernia noted. The GE junction was located at 39 cm from the incisors. There was a distal esophageal Schatzki's ring identified that was dilated using 20 mm TTS balloon for 30 seconds. There were linear erosions noted in the distal esophagus consistent with LA grade B reflux esophagitis. Rest of the esophagus appeared normal and the patient tolerated the procedure well. IMPRESSION: 1. Distal esophageal Schatzki's ring status post balloon dilation using 20 mm TTS balloon. 2. Small hiatal hernia 3. Linear erosions in the distal esophagus consistent with LA grade B reflux esophagitis. RECOMMENDATIONS: The findings of this examination were discussed with the patient as well as her family.. She was advised to start on Prilosec 20 mg daily and follow antireflux measures. Follow-up in the office in 2 to 3 weeks.
[2024-11-08 15:19] VITALS: BP 117/70; PULSE 67; RESP 16
== END 2024-11-08 15:50 | disposition home or self-care (01) ==
LOC: ORWHC2ENDO 12:27
PROVIDERS: ATTEND Internal Medicine Gastroenterology
DX: K22.2 Esophageal obstruction (principal); K21.9 Gastro-esophageal reflux disease without esophagitis; K22.10 Ulcer of esophagus without bleeding; K44.9 Diaphragmatic hernia without obstruction or gangrene; I48.91 Unspecified atrial fibrillation; N32.81 Overactive bladder; E07.9 Disorder of thyroid, unspecified; F31.9 Bipolar disorder, unspecified; F41.9 Anxiety disorder, unspecified; G25.81 Restless legs syndrome; M85.80 Other specified disorders of bone density and structure, unspecified site; M19.90 Unspecified osteoarthritis, unspecified site; Z79.01 Long term (current) use of anticoagulants; Z79.890 Hormone replacement therapy; Z79.899 Other long term (current) drug therapy; Z96.82 Presence of neurostimulator; Z88.5 Allergy status to narcotic agent; Z88.8 Allergy status to other drugs, medicaments and biological substances
CPT/HCPCS: 43249; J2003; J2704; C1726